=== PATIENT | male | born 1955 | race Caucasian/White ===

== ENCOUNTER 2019-01-22 13:59 | Inpatient (IN) | payer MEDICAID ==
[2019-01-22] MEDS ORDERED: Sodium Chloride 0.9% 10 ML Syringe FLUSH PRN (14:38)
--- NOTE | 2019-01-22 15:08 | EDM.PDOC ---
ED HPI GENERAL MEDICAL PROBLEM - General Chief Complaint: Respiratory Problem Stated Complaint: SOB Time Seen by Provider: 01/22/19 14:36 Source of Information: Reports: Patient, Family, Old Records, RN Notes Reviewed History Limitations: Reports: No Limitations - History of Present Illness INITIAL COMMENTS - FREE TEXT/NARRATIVE: Patient is a 63-year-old male who presents to the ED for the evaluation of shortness of breath. Patient has a history of COPD, the emphysematous type, and CHF. The patient notes that he is usually always short of breath, but over the last couple days has been worsening, it is worsen even for the last few hours. He notes he was hospitalized here at the end of October for the same sort of feelings. His sausage stuffer is Dr. Rogers, and his statistical machine servicer is Dr. Littlejohn. He notes that he has a checkup with his sausage stuffer this next week in [place]. He states that he has a dry cough most days, however he gets a coughing fit where he tires amount, and he is not able to go to work. The patient states his sputum is mostly white, does get some dark colored stuff every once in a while. The female present in the room states that he hits dyspneic with even mild exertion. He further notes that his last ejection fraction was around 25%. Patient notes that he has quit smoking, however the last month he has smoked 4 cigarettes. He denies any fevers or chills, chest pain, nausea/vomiting/diarrhea. He states that he did have a cold a few weeks ago but was feeling better. His O2 saturations at time of triage were 82% on room air, he was placed on 3 L nasal cannula and this raised him to 98%. He states that he felt better after the oxygen was initiated. - Related Data Allergies Allergy/AdvReac Type Severity Reaction Status Date / Time No Known Allergies Allergy Verified 01/22/19 14:26 Home Meds: Home Meds Albuterol [Ventolin HFA] 2 puff INH Q4H PRN 10/22/18 [History] Carvedilol 25 mg PO BID 10/22/18 [History] Lisinopril 20 mg PO DAILY 10/22/18 [History] Umeclidinium Brm/Vilanterol Tr [Anoro Ellipta 62.5-25 MCG] 1 each IH DAILY 10/22 [History] Aspirin 81 mg PO DAILY 11/05/18 [History] Azithromycin [Zithromax] 500 mg PO DAILY 3 Days #3 tablet 11/06/18 [Rx] Budesonide/Formoterol Fumarate [Symbicort 80-4.5 Mcg Inhaler] 1 puff IH BID #4 inhaler 11/06/18 [Rx] Furosemide [Lasix] 20 mg PO DAILY #7 11/06/18 [Rx] Potassium Chloride 20 meq PO DAILY #7 tablet.er 11/06/18 [Rx] predniSONE 30 mg PO DAILY 2 Days #6 tablet 11/06/18 [Rx] Past Medical History Cardiovascular History: Reports: Heart Failure, Hypertension Respiratory History: Reports: COPD, Other (See Below) Other Respiratory History: emphysema Social & Family History - Family History Family Medical History: Noncontributory - Caffeine Use Caffeine Use: Reports: Soda Other Caffeine Use: 6-8 cans daily ED ROS GENERAL - Review of Systems Review Of Systems: See Below Constitutional: Denies: Fever, Chills HEENT: Reports: No Symptoms Respiratory: Reports: Shortness of Breath, Cough, Sputum. Denies: Wheezing, Hemoptysis Cardiovascular: Reports: Dyspnea on Exertion, Edema (slight ankle edema). Denies: Chest Pain, Blood Pressure Problem, Lightheadedness, Palpitations Endocrine: Reports: No Symptoms GI/Abdominal: Denies: Abdominal Pain, Constipation, Diarrhea, Nausea, Vomiting : Reports: No Symptoms Musculoskeletal: Reports: No Symptoms Skin: Reports: No Symptoms Neurological: Reports: No Symptoms Psychiatric: Reports: No Symptoms Hematologic/Lymphatic: Reports: No Symptoms Immunologic: Reports: No Symptoms ED EXAM, GENERAL - Physical Exam Exam: See Below Exam Limited By: No Limitations General Appearance: Alert, WD/WN, No Apparent Distress Eye Exam: Bilateral Eye: Normal Inspection Throat/Mouth: Normal Inspection, Normal Lips, Normal Teeth, Normal Gums, Normal Oropharynx, Normal Voice, No Airway Compromise Head: Atraumatic, Normocephalic Neck: Normal Inspection Respiratory/Chest: No Respiratory Distress, Lungs Clear, Chest Non-Tender, Decreased Breath Sounds (diffuse bilaterally). No: Rales, Rhonchi, Wheezing Cardiovascular: Normal Peripheral Pulses, Regular Rate, Rhythm, No Murmur, Other (slight 1+ edema to bilateral ankles) Peripheral Pulses: 3+: Radial (L), Radial (R), Dorsalis Pedis (L), Dorsalis Pedis (R) GI/Abdominal: Normal Bowel Sounds, Soft, Non-Tender, No Distention, No Mass Extremities: Normal Inspection, Normal Capillary Refill Neurological: Alert, Oriented, Normal Cognition, No Motor/Sensory Deficits Psychiatric: Normal Affect, Normal Mood Skin Exam: Warm, Dry, Intact, Normal Color, No Rash EKG INTERPRETATION EKG Date: 01/22/19 Time: 15:01 Rhythm: Other (sinus tach) Rate (Beats/Min): 112 Stover: Normal P-Wave: Present QRS: Normal ST-T: Normal QT: Normal Comparison: No Change EKG Interpretation Comments: Reviewed by myself and Dr. Goff. Course - Vital Signs Last Recorded V/S: Last Vital Signs Temp 97.6 F 01/22/19 14:23 Pulse 93 01/22/19 14:23 Resp 24 H 01/22/19 14:23 BP 160/103 H 01/22/19 14:23 Pulse Ox 98 01/22/19 14:27 - Orders/Labs/Meds Orders: Active Orders 24 hr Category Date Time Status Admission Status [Patient Status] [ADT] Routine ADT 01/22/19 16:09 Active EKG Documentation Completion [RC] STAT Care 01/22/19 14:36 Active Oxygen Therapy, ED [RC] ASDIRECTED Care 01/22/19 14:37 Active Peripheral IV Care [RC] . DIRECTED Care 01/22/19 14:39 Active Sodium Chloride 0.9% [Saline Flush] Med 01/22/19 14:38 Active 10 ml FLUSH ASDIRECTED PRN Peripheral IV Insertion Adult [OM.PC] Routine Oth 01/22/19 14:38 Ordered Medication Orders Sodium Chloride (Saline Flush) 10 ml FLUSH ASDIRECTED PRN PRN Reason: Keep Vein Open Labs: Laboratory Tests 01/22/19 01/22/19 01/22/19 Range/Units 14:37 14:51 14:51 WBC 7.16 (4.23-9.07) K/mm3 RBC 5.27 (4.63-6.08) M/mm3 Hgb 15.4 (13.7-17.5) gm/dl Hct 46.9 (40.1-51.0) % MCV 89.0 (79.0-92.2) fl MCH 29.2 (25.7-32.2) pg MCHC 32.8 (32.2-35.5) g/dl RDW Std Deviation 48.3 H (35.1-43.9) fL Plt Count 217 (163-337) K/mm3 MPV 9.7 (9.4-12.3) fl Neutrophils % (Manual) 76 H (40-60) % Band Neutrophils % 0 (0-10) % Lymphocytes % (Manual) 20 (20-40) % Atypical Lymphs % 0 % Monocytes % (Manual) 4 (2-10) % Eosinophils % (Manual) 0 L (0.8-7.0) % Basophils % (Manual) 0 L (0.2-1.2) Platelet Estimate Adequate Plt Morphology Comment Normal RBC Morph Comment Normal PT 12.5 H (9.7-12.0) SECONDS INR 1.16 APTT 30 (22-31) SECONDS Puncture Site Lt radial ABG pH 7.48 H (7.35-7.45) ABG pCO2 42.0 (35.0-45.0) mmHg ABG pO2 53.0 L (80.0-100.0) mmHg ABG HCO3 30.7 H (22.0-26.0) meq/L ABG O2 Saturation 86.5 L (96.0-97.0) % ABG Base Excess 6.8 H (-2-2.0) Dante Test Positive O2 Delivery Device Room air FiO2 0.00 L (21.00-100.00) % Sodium (136-145) mEq/L Potassium (3.5-5.1) mEq/L Chloride (98-107) mEq/L Carbon Dioxide (21-32) mEq/L Anion Gap (5-15) BUN (7-18) mg/dL Creatinine (0.7-1.3) mg/dL Est Cr Clr Drug Dosing mL/min Estimated GFR (MDRD) (>60) mL/min BUN/Creatinine Ratio (14-18) Glucose (80-115) mg/dL Calcium (8.5-10.1) mg/dL Total Bilirubin (0.2-1.0) mg/dL AST (15-37) U/L ALT (16-63) U/L Alkaline Phosphatase (46-116) U/L Troponin I (0.00-0.056) ng/mL NT-Pro-B Natriuret Pep (0-125) pg/mL Total Protein (6.4-8.2) g/dl Albumin (3.4-5.0) g/dl Globulin gm/dL Albumin/Globulin Ratio (1-2) 01/22/19 01/22/19 Range/Units 14:51 14:51 WBC (4.23-9.07) K/mm3 RBC (4.63-6.08) M/mm3 Hgb (13.7-17.5) gm/dl Hct (40.1-51.0) % MCV (79.0-92.2) fl MCH (25.7-32.2) pg MCHC (32.2-35.5) g/dl RDW Std Deviation (35.1-43.9) fL Plt Count (163-337) K/mm3 MPV (9.4-12.3) fl Neutrophils % (Manual) (40-60) % Band Neutrophils % (0-10) % Lymphocytes % (Manual) (20-40) % Atypical Lymphs % % Monocytes % (Manual) (2-10) % Eosinophils % (Manual) (0.8-7.0) % Basophils % (Manual) (0.2-1.2) Platelet Estimate Plt Morphology Comment RBC Morph Comment PT (9.7-12.0) SECONDS INR APTT (22-31) SECONDS Puncture Site ABG pH (7.35-7.45) ABG pCO2 (35.0-45.0) mmHg ABG pO2 (80.0-100.0) mmHg ABG HCO3 (22.0-26.0) meq/L ABG O2 Saturation (96.0-97.0) % ABG Base Excess (-2-2.0) Dante Test O2 Delivery Device FiO2 (21.00-100.00) % Sodium 142 (136-145) mEq/L Potassium 3.4 L D (3.5-5.1) mEq/L Chloride 104 (98-107) mEq/L Carbon Dioxide 35 H (21-32) mEq/L Anion Gap 6.4 (5-15) BUN 14 (7-18) mg/dL Creatinine 1.0 (0.7-1.3) mg/dL Est Cr Clr Drug Dosing 64.16 mL/min Estimated GFR (MDRD) > 60 (>60) mL/min BUN/Creatinine Ratio 14.0 (14-18) Glucose 93 (80-115) mg/dL Calcium 8.0 L (8.5-10.1) mg/dL Total Bilirubin 0.5 (0.2-1.0) mg/dL AST 11 L (15-37) U/L ALT 19 (16-63) U/L Alkaline Phosphatase 65 (46-116) U/L Troponin I 0.032 (0.00-0.056) ng/mL NT-Pro-B Natriuret Pep 4487 H (0-125) pg/mL Total Protein 6.1 L (6.4-8.2) g/dl Albumin 3.0 L (3.4-5.0) g/dl Globulin 3.1 gm/dL Albumin/Globulin Ratio 1.0 (1-2) Meds: Medications Generic Name Dose Route Start Last Admin Trade Name Freq PRN Reason Stop Dose Admin Sodium Chloride 10 ml 01/22/19 14:38 Saline Flush FLUSH ASDIRECTED PRN Keep Vein Open Discontinued Medications Generic Name Dose Route Start Last Admin Trade Name Freq PRN Reason Stop Dose Admin Albuterol/Ipratropium 3 ml 01/22/19 17:12 Duoneb 3.0-0.5 Mg/3 Ml NEB 01/22/19 17:13 ONETIME ONE Prednisone 40 mg 01/22/19 17:12 Prednisone PO 01/22/19 17:13 ONETIME ONE - Re-Assessments/Exams Free Text/Narrative Re-Assessment/Exam: 01/22/19 15:09 Patient presents to the ED for the evaluation of shortness of breath. I did order an IV be placed, EKG, chest x-ray, CBC, CMP, ABG on room air, troponin, PT /INR, PTT for initial evaluation. Patient will be placed back on oxygen after the ABG has been obtained. 01/22/19 15:47 Patient's laboratory evaluation, his CBC is unremarkable for any acute abnormalities, potassium slightly low at 3.4, BNP is 4487, but review of his old labs showed is not markedly increased from his baseline. Troponin is 0.032 , but within normal limits. Blood gas demonstrated a PO2 of 53 mmHg, this was done on room air. Results of the ABG would demonstrate that he would likely benefit from some outpatient oxygen at home. EKG was obtained and does not appear to have any major changes as compared to the last EKG done. He is in sinus tach with a rate of 112, atrial enlargement, left bundle branch block. Chest x-ray is done as well and demonstrates emphysematous change, with chronic appearing pulmonary vascular congestion, with no other acute abnormalities. 01/22/19 17:13 Dr. Fry was in to see the patient and was concerned that the patient had not been given a breathing treatment or steroids, and requested these be obtained. I did order a Duoneb and 40mg PO prednisone. Departure - Departure Time of Disposition: 16:12 Disposition: Refer to Observation Condition: Fair Clinical Impression: COPD exacerbation, Hypoxemia - Discharge Information *PRESCRIPTION DRUG MONITORING PROGRAM REVIEWED*: No *COPY OF PRESCRIPTION DRUG MONITORING REPORT IN PATIENT LIBBY: No - My Orders Last 24 Hours: My Active Orders 01/22/19 14:36 EKG Documentation Completion [RC] STAT 01/22/19 14:37 Oxygen Therapy, ED [RC] ASDIRECTED 01/22/19 14:38 Sodium Chloride 0.9% [Saline Flush] 10 ml FLUSH ASDIRECTED PRN Peripheral IV Insertion Adult [OM.PC] Routine 01/22/19 14:39 Peripheral IV Care [RC] . DIRECTED 01/22/19 16:09 Admission Status [Patient Status] [ADT] Routine - Assessment/Plan Last 24 Hours: My Active Orders 01/22/19 14:36 EKG Documentation Completion [RC] STAT 01/22/19 14:37 Oxygen Therapy, ED [RC] ASDIRECTED 01/22/19 14:38 Sodium Chloride 0.9% [Saline Flush] 10 ml FLUSH ASDIRECTED PRN Peripheral IV Insertion Adult [OM.PC] Routine 01/22/19 14:39 Peripheral IV Care [RC] . DIRECTED 01/22/19 16:09 Admission Status [Patient Status] [ADT] Routine
--- NOTE | 2019-01-22 15:33 | CR ---
Chest: 2 views of the chest were obtained. Comparison: Prior chest x-ray of 11/05/18. Lungs are hyperinflated compatible with emphysematous change. Heart size is felt to be slightly enlarged. Pulmonary vessels are increased most of which appear to be chronic and difficult to exclude chronic pulmonary vascular congestion. No acute parenchymal change is suspected. Bony structures are grossly intact. Impression: 1. Emphysematous change. 2. Chronic-appearing pulmonary vascular congestion. 3. Nothing acute is definitely appreciated. Diagnostic code #3
[2019-01-22] MEDS ORDERED: predniSONE 20 MG Tab PO ONE (17:12)
[2019-01-22] MEDS ORDERED: Albuterol/Ipratropium 3.0-0.5 MG/3 ML Neb Soln NEB ONE (17:12)
[2019-01-22] MEDS ORDERED: Acetaminophen 325 MG Tab PO PRN (17:59)
[2019-01-22] MEDS ORDERED: Ondansetron 4 MG/2 ML SDV IV PRN (17:59)
[2019-01-22] MEDS ORDERED: Albuterol 0.083% 2.5 MG/3 ML Neb Soln NEB PRN (18:01)
[2019-01-22] MEDS: Albuterol/Ipratropium 3.0-0.5 MG/3 ML Neb Soln NEB SCH (20:29)
--- NOTE | 2019-01-22 21:12 | PCM.HP.2 ---
H&P History of Present Illness - General Date of Service: 01/22/19 Admit Problem/Dx: Admission Diagnosis/Problem Admission Diagnosis/Problem COPD, Moderate chronic obstructive pulmonary disease - History of Present Illness Initial Comments - Free Text/Narative: 63-year-old male comes to emergency room today with worsening shortness of breath. He was diagnosed with COPD 3 years years ago. Over the last 6 weeks he has had worsening shortness of breath, but today he can only walk approximately 10 feet. When he arrived in the ER he was placed on O2 secondary to saturations in the low 80s. He states that he has had increased productive sputum, white, yellowish, brown. He essentially stopped smoking approximately one month ago, except for approximately 4 cigarettes this month. He does see a appliance counselor, Dr. Rogers, and was scheduled for follow-up next week. He has a history of heart failure with reduced ejection fraction of reportedly 25%. He states that his legs have some mild edema, but they are better than normal. He was placed on 3 L nasal cannula in the emergency room and his oxygen saturations were 100% when I entered the room. This was decreased to 1 L and he was maintaining saturations in the mid 90s. He denies any fever, chills, or night sweats. - Related Data Allergies/Adverse Reactions: Allergies Allergy/AdvReac Type Severity Reaction Status Date / Time No Known Allergies Allergy Verified 01/22/19 14:26 Home Medications: Home Meds Albuterol [Ventolin HFA] 2 puff INH Q4H PRN 10/22/18 [History] Carvedilol 25 mg PO BIDMEALS 10/22/18 [History] Lisinopril 20 mg PO DAILY 10/22/18 [History] Umeclidinium Brm/Vilanterol Tr [Anoro Ellipta 62.5-25 MCG] 1 each IH DAILY 10/22 [History] Aspirin 81 mg PO DAILY 11/05/18 [History] Budesonide/Formoterol Fumarate [Symbicort 80-4.5 Mcg Inhaler] 1 puff IH BID #4 inhaler 11/06/18 [Rx] Furosemide [Lasix] 20 mg PO DAILY #7 11/06/18 [Rx] Past Medical History HEENT History: Reports: None Cardiovascular History: Reports: Heart Failure, Hypertension, SOB on Exertion Respiratory History: Reports: COPD, SOB, Other (See Below) Other Respiratory History: emphysema Gastrointestinal History: Reports: None Genitourinary History: Reports: None Musculoskeletal History: Reports: None Neurological History: Reports: None Psychiatric History: Reports: None Endocrine/Metabolic History: Reports: None Hematologic History: Reports: None Immunologic History: Reports: None Oncologic (Cancer) History: Reports: None Dermatologic History: Reports: None - Infectious Disease History Infectious Disease History: Reports: Chicken Pox, Measles - Past Surgical History Head Surgeries/Procedures: Reports: None HEENT Surgical History: Reports: None Male Surgical History: Reports: Circumcision Neurological Surgical History: Reports: None Musculoskeletal Surgical History: Reports: None Oncologic Surgical History: Reports: None Dermatological Surgical History: Reports: None Social & Family History - Family History Family Medical History: Noncontributory - Tobacco Use Smoking Status *Q: Former Smoker Years of Tobacco use: 50 Packs/Tins Daily: 2 Used Tobacco, but Quit: Yes Month/Year Tobacco Last Used: 11/2018 Second Hand Smoke Exposure: Yes - Caffeine Use Caffeine Use: Reports: Soda Other Caffeine Use: 6-8 cans daily - Recreational Drug Use Recreational Drug Use: No H&P Review of Systems - Review of Systems: Review Of Systems: ROS reveals no pertinent complaints other than HPI. Exam - Exam Exam: See Below - Vital Signs Vital Signs: Last Vital Signs Temp 97.9 F 01/22/19 17:45 Pulse 93 01/22/19 17:45 Resp 20 01/22/19 17:45 BP 151/91 H 01/22/19 17:45 Pulse Ox 95 01/22/19 20:32 Weight: 133 lb 3.2 oz - Exam Quality Assessment: Supplemental Oxygen General: Alert, Oriented, 4 HEENT: Conjunctiva Clear, Hearing Intact, Mucosa Moist & Hustler, Normal Nasal Septum Neck: Supple, Trachea Midline, 2 Lungs: Normal Respiratory Effort, Decreased Breath Sounds, Rales Cardiovascular: Regular Rate, Regular Rhythm GI/Abdominal Exam: Normal Bowel Sounds, Soft, Non-Tender, No Organomegaly, No Distention, No Abnormal Bruit, No Mass, Pelvis Stable Extremities: Normal Inspection, Normal Range of Motion, Non-Tender, Normal Capillary Refill, Pedal Edema (1+ pitting edema to mid calf) Skin: Warm, Dry, Intact Neurological: Cranial Nerves Intact Neuro Extensive - Mental Status: Alert, Oriented x3, Normal Mood/Affect, Normal Cognition Neuro Extensive - Motor, Sensory, Reflexes: CN II-XII Intact Psychiatric: Alert, Normal Affect, Normal Mood - Patient Data Lab Results Last 24 hrs: Laboratory Results - last 24 hr 01/22/19 01/22/19 01/22/19 Range/Units 14:37 14:51 14:51 WBC 7.16 (4.23-9.07) K/mm3 RBC 5.27 (4.63-6.08) M/mm3 Hgb 15.4 (13.7-17.5) gm/dl Hct 46.9 (40.1-51.0) % MCV 89.0 (79.0-92.2) fl MCH 29.2 (25.7-32.2) pg MCHC 32.8 (32.2-35.5) g/dl RDW Std Deviation 48.3 H (35.1-43.9) fL Plt Count 217 (163-337) K/mm3 MPV 9.7 (9.4-12.3) fl Neutrophils % (Manual) 76 H (40-60) % Band Neutrophils % 0 (0-10) % Lymphocytes % (Manual) 20 (20-40) % Atypical Lymphs % 0 % Monocytes % (Manual) 4 (2-10) % Eosinophils % (Manual) 0 L (0.8-7.0) % Basophils % (Manual) 0 L (0.2-1.2) Platelet Estimate Adequate Plt Morphology Comment Normal RBC Morph Comment Normal PT 12.5 H (9.7-12.0) SECONDS INR 1.16 APTT 30 (22-31) SECONDS Puncture Site Lt radial ABG pH 7.48 H (7.35-7.45) ABG pCO2 42.0 (35.0-45.0) mmHg ABG pO2 53.0 L (80.0-100.0) mmHg ABG HCO3 30.7 H (22.0-26.0) meq/L ABG O2 Saturation 86.5 L (96.0-97.0) % ABG Base Excess 6.8 H (-2-2.0) Dante Test Positive O2 Delivery Device Room air FiO2 0.00 L (21.00-100.00) % Sodium (136-145) mEq/L Potassium (3.5-5.1) mEq/L Chloride (98-107) mEq/L Carbon Dioxide (21-32) mEq/L Anion Gap (5-15) BUN (7-18) mg/dL Creatinine (0.7-1.3) mg/dL Est Cr Clr Drug Dosing mL/min Estimated GFR (MDRD) (>60) mL/min BUN/Creatinine Ratio (14-18) Glucose (80-115) mg/dL Calcium (8.5-10.1) mg/dL Total Bilirubin (0.2-1.0) mg/dL AST (15-37) U/L ALT (16-63) U/L Alkaline Phosphatase (46-116) U/L Troponin I (0.00-0.056) ng/mL NT-Pro-B Natriuret Pep (0-125) pg/mL Total Protein (6.4-8.2) g/dl Albumin (3.4-5.0) g/dl Globulin gm/dL Albumin/Globulin Ratio (1-2) 01/22/19 01/22/19 Range/Units 14:51 14:51 WBC (4.23-9.07) K/mm3 RBC (4.63-6.08) M/mm3 Hgb (13.7-17.5) gm/dl Hct (40.1-51.0) % MCV (79.0-92.2) fl MCH (25.7-32.2) pg MCHC (32.2-35.5) g/dl RDW Std Deviation (35.1-43.9) fL Plt Count (163-337) K/mm3 MPV (9.4-12.3) fl Neutrophils % (Manual) (40-60) % Band Neutrophils % (0-10) % Lymphocytes % (Manual) (20-40) % Atypical Lymphs % % Monocytes % (Manual) (2-10) % Eosinophils % (Manual) (0.8-7.0) % Basophils % (Manual) (0.2-1.2) Platelet Estimate Plt Morphology Comment RBC Morph Comment PT (9.7-12.0) SECONDS INR APTT (22-31) SECONDS Puncture Site ABG pH (7.35-7.45) ABG pCO2 (35.0-45.0) mmHg ABG pO2 (80.0-100.0) mmHg ABG HCO3 (22.0-26.0) meq/L ABG O2 Saturation (96.0-97.0) % ABG Base Excess (-2-2.0) Dante Test O2 Delivery Device FiO2 (21.00-100.00) % Sodium 142 (136-145) mEq/L Potassium 3.4 L D (3.5-5.1) mEq/L Chloride 104 (98-107) mEq/L Carbon Dioxide 35 H (21-32) mEq/L Anion Gap 6.4 (5-15) BUN 14 (7-18) mg/dL Creatinine 1.0 (0.7-1.3) mg/dL Est Cr Clr Drug Dosing 64.16 mL/min Estimated GFR (MDRD) > 60 (>60) mL/min BUN/Creatinine Ratio 14.0 (14-18) Glucose 93 (80-115) mg/dL Calcium 8.0 L (8.5-10.1) mg/dL Total Bilirubin 0.5 (0.2-1.0) mg/dL AST 11 L (15-37) U/L ALT 19 (16-63) U/L Alkaline Phosphatase 65 (46-116) U/L Troponin I 0.032 (0.00-0.056) ng/mL NT-Pro-B Natriuret Pep 4487 H (0-125) pg/mL Total Protein 6.1 L (6.4-8.2) g/dl Albumin 3.0 L (3.4-5.0) g/dl Globulin 3.1 gm/dL Albumin/Globulin Ratio 1.0 (1-2) Result Diagrams: 01/22/19 14:51 01/22/19 14:51 EKG INTERPRETATION EKG Interpretation Comments: ECG: Ventricular rate 112 bpm. Sinus tachycardia. Left bundle branch block. Problem List Initiated/Reviewed/Updated: Yes Orders Last 24hrs: Active Orders 24 hr Category Date Time Status Admission Status [Patient Status] [ADT] Routine ADT 01/22/19 16:09 Active Oxygen Therapy [RC] PRN Care 01/22/19 18:00 Active RT Aerosol Therapy [RC] ASDIRECTED Care 01/22/19 17:12 Active Up ad Nuha [RC] ASDIRECTED Care 01/22/19 17:59 Active VTE/DVT Education [RC] PER UNIT ROUTINE Care 01/22/19 18:00 Active Vital Signs [RC] Q4HR Care 01/22/19 18:00 Active Respiratory Care Assess and Treatment [CONS] Routine Cons 01/22/19 18:01 Active Heart Healthy Diet [DIET] Diet 01/22/19 Dinner Active C-REACTIVE PROTEIN [CHEM] AM Lab 01/23/19 05:11 Ordered C-REACTIVE PROTEIN [CHEM] AM Lab 01/24/19 05:11 Ordered C-REACTIVE PROTEIN [CHEM] AM Lab 01/25/19 05:11 Ordered C-REACTIVE PROTEIN [CHEM] AM Lab 01/26/19 05:11 Ordered CBC WITH AUTO DIFF [HEME] AM Lab 01/23/19 05:11 Ordered CBC WITH AUTO DIFF [HEME] AM Lab 01/24/19 05:11 Ordered CBC WITH AUTO DIFF [HEME] AM Lab 01/25/19 05:11 Ordered CBC WITH AUTO DIFF [HEME] AM Lab 01/26/19 05:11 Ordered COMPREHENSIVE METABOLIC PN,CMP [CHEM] AM Lab 01/23/19 05:11 Ordered COMPREHENSIVE METABOLIC PN,CMP [CHEM] AM Lab 01/24/19 05:11 Ordered COMPREHENSIVE METABOLIC PN,CMP [CHEM] AM Lab 01/25/19 05:11 Ordered COMPREHENSIVE METABOLIC PN,CMP [CHEM] AM Lab 01/26/19 05:11 Ordered MAGNESIUM [CHEM] AM Lab 01/23/19 05:11 Ordered MAGNESIUM [CHEM] AM Lab 01/24/19 05:11 Ordered MAGNESIUM [CHEM] AM Lab 01/25/19 05:11 Ordered MAGNESIUM [CHEM] AM Lab 01/26/19 05:11 Ordered Acetaminophen [Tylenol] Med 01/22/19 17:59 Active 650 mg PO Q4H PRN Albuterol [Proventil Neb Soln] Med 01/22/19 18:01 Active 2.5 mg NEB Q2H PRN Albuterol/Ipratropium [DuoNeb 3.0-0.5 MG/3 ML] Med 01/22/19 21:00 Active 3 ml NEB Q6HRRT Aspirin Med 01/23/19 09:00 Pending 81 mg PO DAILY Carvedilol Med 01/23/19 07:00 Pending 25 mg PO BIDMEALS Enoxaparin [Lovenox] Med 01/23/19 09:00 Active 40 mg SUBCUT DAILY Furosemide [Lasix] Med 01/23/19 09:00 Ordered 20 mg PO DAILY Lisinopril [Prinivil] Med 01/23/19 09:00 Ordered 20 mg PO DAILY Ondansetron [Zofran] Med 01/22/19 17:59 Active 4 mg IV Q4H PRN Sodium Chloride 0.9% [Saline Flush] Med 01/22/19 14:38 Active 10 ml FLUSH ASDIRECTED PRN Peripheral IV Insertion Adult [OM.PC] Routine Oth 01/22/19 14:38 Ordered Resuscitation Status Routine Resus Stat 01/22/19 17:59 Ordered Medication Orders Acetaminophen (Tylenol) 650 mg PO Q4H PRN PRN Reason: Pain (Mild 1-3)/fever Albuterol (Proventil Neb Soln) 2.5 mg NEB Q2H PRN PRN Reason: Shortness Of Breath/wheezing Albuterol/Ipratropium (Duoneb 3.0-0.5 Mg/3 Ml) 3 ml NEB Q6HRRT KRYSTA Last Admin: 01/22/19 20:29 Dose: 3 ml Aspirin (Aspirin) 81 mg PO DAILY [facility] Enoxaparin Sodium (Lovenox) 40 mg SUBCUT DAILY [facility] Furosemide (Lasix) 20 mg PO DAILY [facility] Lisinopril (Prinivil) 20 mg PO DAILY [facility] Non-Formulary Medication (Carvedilol) 25 mg PO BIDMEALS [facility] Ondansetron HCl (Zofran) 4 mg IV Q4H PRN PRN Reason: Nausea/Vomiting Sodium Chloride (Saline Flush) 10 ml FLUSH ASDIRECTED PRN PRN Reason: Keep Vein Open Assessment/Plan Comment:: Assessment * COPD exacerbation with hypoxemia * Chest x-ray: 1. Emphysematous change. 2. Chronic appearing pulmonary vascular congestion. 3. Nothing acute is definitely appreciated. * ABG: PH 7.48, PCO2 42.0, PO2 53.0, HCO3 30.7 * Heart failure with reduced ejection fractionstable * BNP 4487 ( November 08, 2018: 4376) * reported ejection fraction of 25% * mild metabolic alkalosis likely secondary to diuretics * Mild hypokalemia * Recent tobaccoismquit one month ago: Refuses nicotine patch Plan * Admit to floor on telemetryon observation * FiO2 to keep oxygen saturations between 90 and 94%. * Albuterol and DuoNeb * Prednisone 40 mg daily * Azithromycin * Continue home meds * Replenish potassium * Recheck CBC, CMP, and magnesium in the morning * VTE prophylaxis with Lovenox * CODE STATUS: Full code * Length of stay 1-2 days - Mortality Measure Prognosis:: Poor
[2019-01-22] MEDS ORDERED: Potassium Chloride 20 MEQ Tab.ER PO ONE (21:45)
[2019-01-22] MEDS ORDERED: Azithromycin 500 MG in Sodium Chloride 0.9% 250 ML IV ONE (22:00)
[2019-01-23] MEDS: Albuterol/Ipratropium 3.0-0.5 MG/3 ML Neb Soln NEB SCH ×3 (03:02→14:26)
[2019-01-23] MEDS ORDERED: CARVEDILOL 25 MG PO SCH ×2 (07:00)
[2019-01-23] MEDS: CARVEDILOL 25 MG PO SCH ×2 (07:12→17:24)
[2019-01-23] MEDS ORDERED: Lisinopril 20 MG Tab PO SCH (09:00)
[2019-01-23] MEDS ORDERED: Enoxaparin 40 MG/0.4 ML Syringe SUBCUT SCH (09:00)
[2019-01-23] MEDS ORDERED: Furosemide 20 MG Tab PO SCH (09:00)
[2019-01-23] MEDS: ASPIRIN 81 MG PO SCH (10:06)
[2019-01-23] MEDS: Furosemide 20 MG Tab *PT OWN MED PO SCH (10:06)
[2019-01-23] MEDS: LISINOPRIL 20 MG PO SCH (10:07)
--- NOTE | 2019-01-23 11:47 | PCM.PN ---
- General Info Date of Service: 01/23/19 Admission Dx/Problem (Free Text): Admission Diagnosis/Problem Admission Diagnosis/Problem COPD, Moderate chronic obstructive pulmonary disease Functional Status: Reports: Pain Controlled, Tolerating Diet, Ambulating, Urinating, New Symptoms - Review of Systems General: Reports: No Symptoms. Denies: Fever, Weakness, Fatigue, Malaise, Chills HEENT: Reports: No Symptoms. Denies: Dysphasia, Headaches, Sore Throat Pulmonary: Reports: Shortness of Breath (With ambulation - worse than baseline ) , Cough (chronic ), Sputum (occasional ), Wheezing (chronic ) Cardiovascular: Reports: Dyspnea on Exertion (Chronic - worse than normal ). Denies: Chest Pain, Palpitations, Orthopnea, Edema Gastrointestinal: Reports: No Symptoms. Denies: Abdominal Pain, Constipation, Diarrhea, Nausea, Vomiting Genitourinary: Reports: No Symptoms. Denies: Pain Musculoskeletal: Reports: No Symptoms Skin: Reports: No Symptoms Neurological: Reports: No Symptoms. Denies: Confusion, Pre-Existing Deficit, Difficulty Walking, Weakness Psychiatric: Reports: No Symptoms - Patient Data Vitals - Most Recent: Last Vital Signs Temp 98.2 F 01/23/19 02:57 Pulse 81 01/23/19 02:57 Resp 12 01/23/19 02:57 BP 142/74 H 01/23/19 10:07 Pulse Ox 89 L 01/23/19 08:32 Weight - Most Recent: 133 lb 4.8 oz I&O - Last 24 Hours: Intake & Output 01/22/19 01/23/19 01/23/19 22:59 06:59 14:59 Intake Total 320 850 440 Output Total 1050 Balance 320 -200 440 Lab Results Last 24 Hours: Laboratory Results - last 24 hr 01/22/19 01/22/19 01/22/19 Range/Units 14:37 14:51 14:51 WBC 7.16 (4.23-9.07) K/mm3 RBC 5.27 (4.63-6.08) M/mm3 Hgb 15.4 (13.7-17.5) gm/dl Hct 46.9 (40.1-51.0) % MCV 89.0 (79.0-92.2) fl MCH 29.2 (25.7-32.2) pg MCHC 32.8 (32.2-35.5) g/dl RDW Std Deviation 48.3 H (35.1-43.9) fL Plt Count 217 (163-337) K/mm3 MPV 9.7 (9.4-12.3) fl Neut % (Auto) (34.0-67.9) % Lymph % (Auto) (21.8-53.1) % Stevens % (Auto) (5.3-12.2) % Eos % (Auto) (0.8-7.0) Baso % (Auto) (0.1-1.2) % Neut # (Auto) (1.78-5.38) K/mm3 Lymph # (Auto) (1.32-3.57) K/mm3 Stevens # (Auto) (0.30-0.82) K/mm3 Eos # (Auto) (0.04-0.54) K/mm3 Baso # (Auto) (0.01-0.08) K/mm3 Neutrophils % (Manual) 76 H (40-60) % Band Neutrophils % 0 (0-10) % Lymphocytes % (Manual) 20 (20-40) % Atypical Lymphs % 0 % Monocytes % (Manual) 4 (2-10) % Eosinophils % (Manual) 0 L (0.8-7.0) % Basophils % (Manual) 0 L (0.2-1.2) Manual Slide Review Platelet Estimate Adequate Plt Morphology Comment Normal RBC Morph Comment Normal PT 12.5 H (9.7-12.0) SECONDS INR 1.16 APTT 30 (22-31) SECONDS Puncture Site Lt radial ABG pH 7.48 H (7.35-7.45) ABG pCO2 42.0 (35.0-45.0) mmHg ABG pO2 53.0 L (80.0-100.0) mmHg ABG HCO3 30.7 H (22.0-26.0) meq/L ABG O2 Saturation 86.5 L (96.0-97.0) % ABG Base Excess 6.8 H (-2-2.0) Dante Test Positive O2 Delivery Device Room air FiO2 0.00 L (21.00-100.00) % Sodium (136-145) mEq/L Potassium (3.5-5.1) mEq/L Chloride (98-107) mEq/L Carbon Dioxide (21-32) mEq/L Anion Gap (5-15) BUN (7-18) mg/dL Creatinine (0.7-1.3) mg/dL Est Cr Clr Drug Dosing mL/min Estimated GFR (MDRD) (>60) mL/min BUN/Creatinine Ratio (14-18) Glucose (80-115) mg/dL Calcium (8.5-10.1) mg/dL Magnesium (1.8-2.4) mg/dl Total Bilirubin (0.2-1.0) mg/dL AST (15-37) U/L ALT (16-63) U/L Alkaline Phosphatase (46-116) U/L Troponin I (0.00-0.056) ng/mL C-Reactive Protein (<1.0) mg/dL NT-Pro-B Natriuret Pep (0-125) pg/mL Total Protein (6.4-8.2) g/dl Albumin (3.4-5.0) g/dl Globulin gm/dL Albumin/Globulin Ratio (1-2) 01/22/19 01/22/19 01/23/19 Range/Units 14:51 14:51 05:09 WBC 4.35 (4.23-9.07) K/mm3 RBC 5.24 (4.63-6.08) M/mm3 Hgb 14.9 (13.7-17.5) gm/dl Hct 46.5 (40.1-51.0) % MCV 88.7 (79.0-92.2) fl MCH 28.4 (25.7-32.2) pg MCHC 32.0 L (32.2-35.5) g/dl RDW Std Deviation 47.4 H (35.1-43.9) fL Plt Count 197 (163-337) K/mm3 MPV 9.9 (9.4-12.3) fl Neut % (Auto) 88.5 H (34.0-67.9) % Lymph % (Auto) 9.7 L (21.8-53.1) % Stevens % (Auto) 1.8 L (5.3-12.2) % Eos % (Auto) 0 L (0.8-7.0) Baso % (Auto) 0.0 L (0.1-1.2) % Neut # (Auto) 3.85 (1.78-5.38) K/mm3 Lymph # (Auto) 0.42 L (1.32-3.57) K/mm3 Stevens # (Auto) 0.08 L (0.30-0.82) K/mm3 Eos # (Auto) 0.00 L (0.04-0.54) K/mm3 Baso # (Auto) 0.00 L (0.01-0.08) K/mm3 Neutrophils % (Manual) (40-60) % Band Neutrophils % (0-10) % Lymphocytes % (Manual) (20-40) % Atypical Lymphs % % Monocytes % (Manual) (2-10) % Eosinophils % (Manual) (0.8-7.0) % Basophils % (Manual) (0.2-1.2) Manual Slide Review Abnormal smear Platelet Estimate Plt Morphology Comment RBC Morph Comment PT (9.7-12.0) SECONDS INR APTT (22-31) SECONDS Puncture Site ABG pH (7.35-7.45) ABG pCO2 (35.0-45.0) mmHg ABG pO2 (80.0-100.0) mmHg ABG HCO3 (22.0-26.0) meq/L ABG O2 Saturation (96.0-97.0) % ABG Base Excess (-2-2.0) Dante Test O2 Delivery Device FiO2 (21.00-100.00) % Sodium 142 (136-145) mEq/L Potassium 3.4 L D (3.5-5.1) mEq/L Chloride 104 (98-107) mEq/L Carbon Dioxide 35 H (21-32) mEq/L Anion Gap 6.4 (5-15) BUN 14 (7-18) mg/dL Creatinine 1.0 (0.7-1.3) mg/dL Est Cr Clr Drug Dosing 64.16 mL/min Estimated GFR (MDRD) > 60 (>60) mL/min BUN/Creatinine Ratio 14.0 (14-18) Glucose 93 (80-115) mg/dL Calcium 8.0 L (8.5-10.1) mg/dL Magnesium (1.8-2.4) mg/dl Total Bilirubin 0.5 (0.2-1.0) mg/dL AST 11 L (15-37) U/L ALT 19 (16-63) U/L Alkaline Phosphatase 65 (46-116) U/L Troponin I 0.032 (0.00-0.056) ng/mL C-Reactive Protein (<1.0) mg/dL NT-Pro-B Natriuret Pep 4487 H (0-125) pg/mL Total Protein 6.1 L (6.4-8.2) g/dl Albumin 3.0 L (3.4-5.0) g/dl Globulin 3.1 gm/dL Albumin/Globulin Ratio 1.0 (1-2) 01/23/19 Range/Units 05:09 WBC (4.23-9.07) K/mm3 RBC (4.63-6.08) M/mm3 Hgb (13.7-17.5) gm/dl Hct (40.1-51.0) % MCV (79.0-92.2) fl MCH (25.7-32.2) pg MCHC (32.2-35.5) g/dl RDW Std Deviation (35.1-43.9) fL Plt Count (163-337) K/mm3 MPV (9.4-12.3) fl Neut % (Auto) (34.0-67.9) % Lymph % (Auto) (21.8-53.1) % Stevens % (Auto) (5.3-12.2) % Eos % (Auto) (0.8-7.0) Baso % (Auto) (0.1-1.2) % Neut # (Auto) (1.78-5.38) K/mm3 Lymph # (Auto) (1.32-3.57) K/mm3 Stevens # (Auto) (0.30-0.82) K/mm3 Eos # (Auto) (0.04-0.54) K/mm3 Baso # (Auto) (0.01-0.08) K/mm3 Neutrophils % (Manual) (40-60) % Band Neutrophils % (0-10) % Lymphocytes % (Manual) (20-40) % Atypical Lymphs % % Monocytes % (Manual) (2-10) % Eosinophils % (Manual) (0.8-7.0) % Basophils % (Manual) (0.2-1.2) Manual Slide Review Platelet Estimate Plt Morphology Comment RBC Morph Comment PT (9.7-12.0) SECONDS INR APTT (22-31) SECONDS Puncture Site ABG pH (7.35-7.45) ABG pCO2 (35.0-45.0) mmHg ABG pO2 (80.0-100.0) mmHg ABG HCO3 (22.0-26.0) meq/L ABG O2 Saturation (96.0-97.0) % ABG Base Excess (-2-2.0) Dante Test O2 Delivery Device FiO2 (21.00-100.00) % Sodium 141 (136-145) mEq/L Potassium 3.5 (3.5-5.1) mEq/L Chloride 103 (98-107) mEq/L Carbon Dioxide 32 (21-32) mEq/L Anion Gap 9.5 (5-15) BUN 15 (7-18) mg/dL Creatinine 1.0 (0.7-1.3) mg/dL Est Cr Clr Drug Dosing 63.82 mL/min Estimated GFR (MDRD) > 60 (>60) mL/min BUN/Creatinine Ratio 15.0 (14-18) Glucose 188 H (80-115) mg/dL Calcium 8.5 (8.5-10.1) mg/dL Magnesium 2.0 (1.8-2.4) mg/dl Total Bilirubin 0.5 (0.2-1.0) mg/dL AST 20 (15-37) U/L ALT 23 (16-63) U/L Alkaline Phosphatase 68 (46-116) U/L Troponin I (0.00-0.056) ng/mL C-Reactive Protein 0.5 (<1.0) mg/dL NT-Pro-B Natriuret Pep (0-125) pg/mL Total Protein 6.0 L (6.4-8.2) g/dl Albumin 2.9 L (3.4-5.0) g/dl Globulin 3.1 gm/dL Albumin/Globulin Ratio 0.9 L (1-2) Med Orders - Current: Current Medications Acetaminophen (Tylenol) 650 mg PO Q4H PRN PRN Reason: Pain (Mild 1-3)/fever Albuterol (Proventil Neb Soln) 2.5 mg NEB Q2H PRN PRN Reason: Shortness Of Breath/wheezing Albuterol/Ipratropium (Duoneb 3.0-0.5 Mg/3 Ml) 3 ml NEB Q6HRRT [facility] Last Admin: 01/23/19 08:32 Dose: 3 ml Aspirin (Halfprin) 81 mg PO DAILY [facility] Last Admin: 01/23/19 10:06 Dose: 81 mg Azithromycin (Zithromax) 250 mg PO DAILY [facility] Stop: 01/26/19 09:01 Enoxaparin Sodium (Lovenox) 40 mg SUBCUT DAILY [facility] Last Admin: 01/23/19 10:08 Dose: Not Given Furosemide (Lasix) 20 mg PO DAILY [facility] Last Admin: 01/23/19 10:06 Dose: 20 mg Lisinopril (Prinivil) 20 mg PO DAILY [facility] Last Admin: 01/23/19 10:07 Dose: 20 mg Nf Medication 1 Each (Carvedilol 25 Mg)* Pt Own Med 0 mg PO BIDMEALS [facility] Last Admin: 01/23/19 07:12 Dose: 25 mg Ondansetron HCl (Zofran) 4 mg IV Q4H PRN PRN Reason: Nausea/Vomiting Prednisone (Prednisone) 40 mg PO ONETIME ONE Stop: 01/24/19 11:15 Prednisone (Prednisone) 40 mg PO WITHBREAKFAST [facility] Sodium Chloride (Saline Flush) 10 ml FLUSH ASDIRECTED PRN PRN Reason: Keep Vein Open Discontinued Medications Albuterol/Ipratropium (Duoneb 3.0-0.5 Mg/3 Ml) 3 ml NEB ONETIME ONE Stop: 01/22/19 17:13 Last Admin: 01/22/19 18:27 Dose: 3 ml Azithromycin 500 mg/ Sodium (Chloride) 250 mls @ 250 mls/hr IV ONETIME ONE Stop: 01/22/19 22:59 Last Admin: 01/22/19 22:13 Dose: 250 mls/hr Nf Med 1 Each ( Carvedilol 25 Mg) * Pt Own Med 25 mg PO BIDMEALS [facility] Potassium Chloride (Klor-Con M20) 20 meq PO ONETIME ONE Stop: 01/22/19 21:46 Last Admin: 01/22/19 22:13 Dose: 20 meq Prednisone (Prednisone) 40 mg PO ONETIME ONE Stop: 01/22/19 17:13 Last Admin: 01/22/19 17:57 Dose: 40 mg - Exam Quality Assessment: Supplemental Oxygen, DVT Prophylaxis General: Alert, Oriented, Cooperative, No Acute Distress HEENT: Pupils Equal, Pupils Reactive, EOMI, Mucous Membr. Moist/Graingers Neck: Supple, Trachea Midline, No JVD Lungs: Normal Respiratory Effort, Decreased Breath Sounds, Wheezing Cardiovascular: Regular Rate, Regular Rhythm GI/Abdominal Exam: Normal Bowel Sounds, Soft, Non-Tender, No Distention, No Abnormal Bruit, Pelvis Stable (Male) Exam: Deferred Back Exam: Normal Inspection, Full Range of Motion Extremities: Normal Inspection, Normal Range of Motion, Non-Tender, No Pedal Edema, Normal Capillary Refill Peripheral Pulses: 2+: Radial (L), Radial (R), Dorsalis Pedis (L), Dorsalis Pedis (R) Skin: Warm, Dry, Intact Neurological: No New Focal Deficit Psy/Mental Status: Alert, Normal Affect, Normal Mood - Problem List & Annotations (1) COPD exacerbation SNOMED Code(s): 863226639 Code(s): J44.1 - CHRONIC OBSTRUCTIVE PULMONARY DISEASE W (ACUTE) EXACERBATION Status: Acute Priority: High Current Visit: Yes (2) Congestive heart failure SNOMED Code(s): 85075910 Code(s): I50.9 - HEART FAILURE, UNSPECIFIED Status: Chronic Priority: Medium Current Visit: No Qualifiers: Heart failure type: unspecified Heart failure chronicity: acute on chronic Qualified Code(s): I50.9 - Heart failure, unspecified (3) Dyspnea SNOMED Code(s): 652887680 Code(s): R06.00 - DYSPNEA, UNSPECIFIED Status: Acute Priority: High Current Visit: Yes Qualifiers: Dyspnea type: dyspnea on exertion Qualified Code(s): R06.09 - Other forms of dyspnea (4) Hypoxemia SNOMED Code(s): 537363328 Code(s): R09.02 - HYPOXEMIA Status: Resolved Priority: High Current Visit: Yes - Problem List Review Problem List Initiated/Reviewed/Updated: Yes - My Orders Last 24 Hours: My Active Orders 01/23/19 22:00 Azithromycin [Zithromax] 250 mg PO DAILY 01/24/19 07:00 predniSONE 40 mg PO WITHBREAKFAST 01/24/19 11:14 predniSONE 40 mg PO ONETIME ONE - Plan Plan:: Assessment * COPD exacerbation with hypoxemia * Chest x-ray: 1. Emphysematous change. 2. Chronic appearing pulmonary vascular congestion. 3. Nothing acute is definitely appreciated. * ABG: PH 7.48, PCO2 42.0, PO2 53.0, HCO3 30.7 * Heart failure with reduced ejection fractionstable * BNP 4487 ( November 08, 2018: 4376) * reported ejection fraction of 25% * mild metabolic alkalosis likely secondary to diuretics * Mild hypokalemia -> resolved * Recent tobaccoismquit one month ago: Refuses nicotine patch Plan * Admit to floor on telemetry on observation * FiO2 to keep oxygen saturations between 90 and 94%. - wean as able * Albuterol and DuoNeb * Prednisone 40 mg daily * Azithromycin 500mg initially and then 250mg for 4 days * Continue home meds * Replenish potassium - resolved * Recheck CBC, CMP, and magnesium in the morning * VTE prophylaxis with Lovenox - refusing lovenox; will add SCDs. * CODE STATUS: Full code * Length of stay 1-2 days
[2019-01-23] MEDS ORDERED: predniSONE 20 MG Tab PO ONE (12:15)
[2019-01-23] MEDS ORDERED: LORazepam 2 MG/ML SDV ONE (19:17)
[2019-01-23] MEDS ORDERED: methylPREDNISolone Sodium Succinate 125 MG/2 ML SDV IVPUSH ONE (19:29)
[2019-01-23] MEDS ORDERED: Levalbuterol HCl 1.25 MG/3 ML Neb NEB PRN (19:36)
--- NOTE | 2019-01-23 20:11 | PCM.SN ---
- Free Text/Narrative Note: Called to patient's bedside secondary to acute discogenic event. At just after 1900 as per therapist requested that I attend the patient at his bedside. He was sitting at the edge of his bed leaning over tachypneic with respiratory rate in the 40s. Heart rate was in the 120s. He was using accessory muscles. Patient was clearly anxious and audibly wheezing. Lung sounds were diminished and expiratory wheezes were noted. No rales or rhonchi noted. He was unable initially to use his breathing treatment because he felt like he couldn't catch his breath. Ativan 0.5 mg IM was given and easy Pap was applied on the last portion of his albuterol breathing treatment. Respiratory rate improved and he had significant improvement in his work of breathing. After the breathing treatment his wheezing significantly improved and air movement was better. Chest x-ray showed some atelectasis on the right lower lobe, hyperinflated lungs , no infiltrate or pneumothorax. Radiologist reading impression: 1. Chronic appearing pulmonary vascular congestion. Curly B-lines are noted suspicious for worsening pulmonary vascular congestion with interstitial pulmonary edema. 2. Stable emphysematous change. Lab work was ordered to include a CMP, BNP, d- dimer. EKG shows a ventricular rate of 117 bpm with sinus tachycardia. EKG was significant for left bundle branch block. labs: Sodium 139, potassium 4.5, BUN 21, creatinine 1.0, glucose 154, BNP slightly higher at 5199, d-dimer slightly elevated at 0.56 normal is up to 0.50. Patient be given extra Lasix 20 mg IV tonight. Solu-Medrol 125 mg IV bolus. I'm going to switch his albuterol to Xopenex secondary to his tachycardia. Also, he is on a nonselective beta alison, carvedilol, which may be worsening his bronchoconstriction. This dyspneic episode occurred approximately 2 hours after his 25 mg dose of carvedilol. I will DC the carvedilol and switch to metoprolol 100 mg twice a day in the morning. Patient was reevaluated at 2100. He is resting comfortably with good air entry and significant decreased wheezing.
--- NOTE | 2019-01-23 20:16 | CR ---
Chest: Frontal view of the chest was obtained utilizing portable technique. Comparison: Prior chest x-ray of 01/22/19. Lungs are again noted to be hyperinflated compatible with emphysematous change. Heart size is slightly enlarged. Increased central lung markings are seen which appears stable possibly due to chronic pulmonary vascular congestion. There are increased Tamir B lines being seen within both lung bases which appear to be slightly increased from prior study most likely due to early acute interstitial pulmonary edema. No additional pulmonary densities are seen. Bony structures are grossly intact. Impression: 1. Chronic-appearing pulmonary vascular congestion. Tamir B lines are noted suspicious for worsening pulmonary vascular congestion with interstitial pulmonary edema. 2. Stable emphysematous change. Diagnostic code #3
[2019-01-23] MEDS: Ipratropium 0.02% 0.5 MG/2.5 ML Neb Soln NEB SCH (21:03)
[2019-01-23] MEDS: Levalbuterol HCl 1.25 MG/3 ML Neb NEB SCH (21:03)
[2019-01-23] MEDS ORDERED: Furosemide 20 MG/2 ML VIAL IVPUSH ONE (21:07)
[2019-01-23] MEDS: guaiFENesin 600 MG Tab.ER PO SCH ×2 (21:26→22:14)
[2019-01-23] MEDS: Azithromycin 250 MG Tab PO SCH (21:27)
[2019-01-24] MEDS: Levalbuterol HCl 1.25 MG/3 ML Neb NEB SCH (02:03)
[2019-01-24] MEDS: Ipratropium 0.02% 0.5 MG/2.5 ML Neb Soln NEB SCH ×4 (02:03→20:11)
--- NOTE | 2019-01-24 06:29 | PCM.PN ---
- General Info Date of Service: 01/24/19 Admission Dx/Problem (Free Text): Admission Diagnosis/Problem Admission Diagnosis/Problem COPD, Moderate chronic obstructive pulmonary disease Functional Status: Reports: Pain Controlled, Tolerating Diet, Ambulating, Urinating, Incentive Spirometry, Other (Acapella ). Denies: New Symptoms - Review of Systems General: Reports: No Symptoms. Denies: Fever, Weakness, Fatigue, Malaise, Chills HEENT: Reports: No Symptoms. Denies: Headaches, Sore Throat Pulmonary: Reports: Shortness of Breath (improved but worse with ambulation, mildly worse than baseline ), Cough (chronic ), Sputum (chronic - occasional ), Wheezing (Chronic ) Cardiovascular: Reports: No Symptoms. Denies: Chest Pain, Palpitations, Edema Gastrointestinal: Reports: No Symptoms. Denies: Abdominal Pain, Constipation, Diarrhea, Nausea, Vomiting Genitourinary: Reports: No Symptoms. Denies: Dysuria, Pain Musculoskeletal: Reports: No Symptoms Skin: Reports: No Symptoms Neurological: Reports: No Symptoms, Weakness. Denies: Confusion, Difficulty Walking, Gait Disturbance Psychiatric: Reports: No Symptoms - Patient Data Vitals - Most Recent: Last Vital Signs Temp 98.2 F 01/23/19 15:16 Pulse 96 01/23/19 21:31 Resp 22 H 01/23/19 21:31 BP 146/95 H 01/23/19 21:31 Pulse Ox 91 L 01/24/19 02:05 Weight - Most Recent: 133 lb 4.8 oz I&O - Last 24 Hours: Intake & Output 01/23/19 01/23/19 01/24/19 14:59 22:59 06:59 Intake Total 760 1520 Balance 760 1520 Lab Results Last 24 Hours: Laboratory Results - last 24 hr 01/23/19 01/23/19 01/23/19 Range/Units 05:09 20:03 20:03 WBC (4.23-9.07) K/mm3 RBC (4.63-6.08) M/mm3 Hgb (13.7-17.5) gm/dl Hct (40.1-51.0) % MCV (79.0-92.2) fl MCH (25.7-32.2) pg MCHC (32.2-35.5) g/dl RDW Std Deviation (35.1-43.9) fL Plt Count (163-337) K/mm3 MPV (9.4-12.3) fl Neut % (Auto) (34.0-67.9) % Lymph % (Auto) (21.8-53.1) % [place] % (Auto) (5.3-12.2) % Eos % (Auto) (0.8-7.0) Baso % (Auto) (0.1-1.2) % Neut # (Auto) (1.78-5.38) K/mm3 Lymph # (Auto) (1.32-3.57) K/mm3 [place] # (Auto) (0.30-0.82) K/mm3 Eos # (Auto) (0.04-0.54) K/mm3 Baso # (Auto) (0.01-0.08) K/mm3 Manual Slide Review Abnormal smear D-Dimer, Quantitative 0.56 H (0.19-0.50) mg/L Sodium 139 (136-145) mEq/L Potassium 4.5 (3.5-5.1) mEq/L Chloride 102 (98-107) mEq/L Carbon Dioxide 33 H (21-32) mEq/L Anion Gap 8.5 (5-15) BUN 21 H (7-18) mg/dL Creatinine 1.0 (0.7-1.3) mg/dL Est Cr Clr Drug Dosing 63.82 mL/min Estimated GFR (MDRD) > 60 (>60) mL/min BUN/Creatinine Ratio 21.0 H (14-18) Glucose 154 H (80-115) mg/dL Calcium 8.8 (8.5-10.1) mg/dL Magnesium 1.9 (1.8-2.4) mg/dl Total Bilirubin 0.6 (0.2-1.0) mg/dL AST 26 (15-37) U/L ALT 33 (16-63) U/L Alkaline Phosphatase 76 (46-116) U/L C-Reactive Protein (<1.0) mg/dL NT-Pro-B Natriuret Pep (0-125) pg/mL Total Protein 6.7 (6.4-8.2) g/dl Albumin 3.3 L (3.4-5.0) g/dl Globulin 3.4 gm/dL Albumin/Globulin Ratio 1.0 (1-2) 01/23/19 01/24/19 01/24/19 Range/Units 20:03 05:10 05:10 WBC 6.16 (4.23-9.07) K/mm3 RBC 5.05 (4.63-6.08) M/mm3 Hgb 15.1 (13.7-17.5) gm/dl Hct 44.9 (40.1-51.0) % MCV 88.9 (79.0-92.2) fl MCH 29.9 (25.7-32.2) pg MCHC 33.6 (32.2-35.5) g/dl RDW Std Deviation 48.2 H (35.1-43.9) fL Plt Count 200 (163-337) K/mm3 MPV 9.8 (9.4-12.3) fl Neut % (Auto) 92.9 H (34.0-67.9) % Lymph % (Auto) 6.3 L (21.8-53.1) % [place] % (Auto) 0.8 L (5.3-12.2) % Eos % (Auto) 0 L (0.8-7.0) Baso % (Auto) 0.0 L (0.1-1.2) % Neut # (Auto) 5.72 H (1.78-5.38) K/mm3 Lymph # (Auto) 0.39 L (1.32-3.57) K/mm3 [place] # (Auto) 0.05 L (0.30-0.82) K/mm3 Eos # (Auto) 0.00 L (0.04-0.54) K/mm3 Baso # (Auto) 0.00 L (0.01-0.08) K/mm3 Manual Slide Review D-Dimer, Quantitative (0.19-0.50) mg/L Sodium 140 (136-145) mEq/L Potassium 3.9 (3.5-5.1) mEq/L Chloride 103 (98-107) mEq/L Carbon Dioxide 33 H (21-32) mEq/L Anion Gap 7.9 (5-15) BUN 21 H (7-18) mg/dL Creatinine 1.0 (0.7-1.3) mg/dL Est Cr Clr Drug Dosing 63.82 mL/min Estimated GFR (MDRD) > 60 (>60) mL/min BUN/Creatinine Ratio 21.0 H (14-18) Glucose 143 H (80-115) mg/dL Calcium 8.6 (8.5-10.1) mg/dL Magnesium 2.0 (1.8-2.4) mg/dl Total Bilirubin 0.5 (0.2-1.0) mg/dL AST 20 (15-37) U/L ALT 28 (16-63) U/L Alkaline Phosphatase 73 (46-116) U/L C-Reactive Protein < 0.2 (<1.0) mg/dL NT-Pro-B Natriuret Pep 5199 H (0-125) pg/mL Total Protein 6.4 (6.4-8.2) g/dl Albumin 3.2 L (3.4-5.0) g/dl Globulin 3.2 gm/dL Albumin/Globulin Ratio 1.0 (1-2) Med Orders - Current: Current Medications Acetaminophen (Tylenol) 650 mg PO Q4H PRN PRN Reason: Pain (Mild 1-3)/fever Aspirin (Halfprin) 81 mg PO DAILY [facility] Last Admin: 01/23/19 10:06 Dose: 81 mg Azithromycin (Zithromax) 250 mg PO DAILY [facility] Stop: 01/26/19 09:01 Last Admin: 01/23/19 21:27 Dose: 250 mg Furosemide (Lasix) 20 mg PO DAILY [facility] Last Admin: 01/23/19 10:06 Dose: 20 mg Guaifenesin (Mucinex) 600 mg PO TID [facility] Last Admin: 01/23/19 22:14 Dose: Not Given Ipratropium [place] (Atrovent) 0.5 mg NEB Q6HRRT [facility] Last Admin: 01/24/19 02:03 Dose: 0.5 mg Levalbuterol HCl (Xopenex) 1.25 mg NEB Q6HRRT [facility] Last Admin: 01/24/19 02:03 Dose: 1.25 mg Levalbuterol HCl (Xopenex) 1.25 mg NEB Q2H PRN PRN Reason: Shortness of Breath Lisinopril (Prinivil) 20 mg PO DAILY [facility] Last Admin: 01/23/19 10:07 Dose: 20 mg Metoprolol Tartrate (Lopressor) 100 mg PO Q12HR [facility] Ondansetron HCl (Zofran) 4 mg IV Q4H PRN PRN Reason: Nausea/Vomiting Prednisone (Prednisone) 40 mg PO WITHBREAKFAST [facility] Sodium Chloride (Saline Flush) 10 ml FLUSH ASDIRECTED PRN PRN Reason: Keep Vein Open Discontinued Medications Albuterol (Proventil Neb Soln) 2.5 mg NEB Q2H PRN PRN Reason: Shortness Of Breath/wheezing Last Admin: 01/23/19 18:42 Dose: 2.5 mg Albuterol/Ipratropium (Duoneb 3.0-0.5 Mg/3 Ml) 3 ml NEB ONETIME ONE Stop: 01/22/19 17:13 Last Admin: 01/22/19 18:27 Dose: 3 ml Albuterol/Ipratropium (Duoneb 3.0-0.5 Mg/3 Ml) 3 ml NEB Q6HRRT [facility] Last Admin: 01/23/19 14:26 Dose: 3 ml Enoxaparin Sodium (Lovenox) 40 mg SUBCUT DAILY [facility] Last Admin: 01/23/19 10:08 Dose: Not Given Furosemide (Lasix) 20 mg IVPUSH NOW ONE Stop: 01/23/19 21:08 Last Admin: 01/23/19 21:26 Dose: 20 mg Azithromycin 500 mg/ Sodium (Chloride) 250 mls @ 250 mls/hr IV ONETIME ONE Stop: 01/22/19 22:59 Last Admin: 01/22/19 22:13 Dose: 250 mls/hr Lorazepam (Ativan) Confirm Administered Dose 2 mg .ROUTE .STK-MED ONE Stop: 01/23/19 19:18 Last Admin: 01/23/19 20:47 Dose: 0.5 mg Methylprednisolone Sodium Succinate (Solu-Medrol) 125 mg IVPUSH ONETIME ONE Stop: 01/23/19 19:30 Last Admin: 01/23/19 21:26 Dose: 125 mg Nf Med 1 Each ( Carvedilol 25 Mg) * Pt Own Med 25 mg PO BIDMEALS [facility] Nf Medication 1 Each (Carvedilol 25 Mg)* Pt Own Med 0 mg PO BIDMEALS [facility] Last Admin: 01/23/19 17:24 Dose: 25 mg Potassium Chloride (Klor-Con M20) 20 meq PO ONETIME ONE Stop: 01/22/19 21:46 Last Admin: 01/22/19 22:13 Dose: 20 meq Prednisone (Prednisone) 40 mg PO ONETIME ONE Stop: 01/22/19 17:13 Last Admin: 01/22/19 17:57 Dose: 40 mg Prednisone (Prednisone) 40 mg PO ONETIME ONE Stop: 01/23/19 12:16 Last Admin: 01/23/19 12:52 Dose: 40 mg - Exam Quality Assessment: Supplemental Oxygen, DVT Prophylaxis General: Alert, Oriented, Cooperative, No Acute Distress HEENT: Pupils Equal, Pupils Reactive, EOMI, Mucous Membr. Moist/[place] Neck: Supple, Trachea Midline Lungs: Clear to Auscultation, Normal Respiratory Effort Cardiovascular: Regular Rate, Regular Rhythm GI/Abdominal Exam: Normal Bowel Sounds, Soft, Non-Tender, No Distention, No Abnormal Bruit (Male) Exam: Deferred Back Exam: Normal Inspection, Full Range of Motion Extremities: Normal Inspection, Normal Range of Motion, Non-Tender, No Pedal Edema, Normal Capillary Refill Peripheral Pulses: 3+: Radial (L), Radial (R), Dorsalis Pedis (L), Dorsalis Pedis (R) Skin: Warm, Dry, Intact Neurological: No New Focal Deficit Psy/Mental Status: Alert, Normal Affect, Normal Mood - Problem List & Annotations (1) COPD exacerbation SNOMED Code(s): 571408031 Code(s): J44.1 - CHRONIC OBSTRUCTIVE PULMONARY DISEASE W (ACUTE) EXACERBATION Status: Acute Priority: High Current Visit: Yes (2) Congestive heart failure SNOMED Code(s): 90493287 Code(s): I50.9 - HEART FAILURE, UNSPECIFIED Status: Chronic Priority: Medium Current Visit: No Qualifiers: Heart failure type: unspecified Heart failure chronicity: acute on chronic Qualified Code(s): I50.9 - Heart failure, unspecified (3) Dyspnea SNOMED Code(s): 794675282 Code(s): R06.00 - DYSPNEA, UNSPECIFIED Status: Acute Priority: High Current Visit: Yes Qualifiers: Dyspnea type: dyspnea on exertion Qualified Code(s): R06.09 - Other forms of dyspnea (4) Hypoxemia SNOMED Code(s): 594797991 Code(s): R09.02 - HYPOXEMIA Status: Resolved Priority: High Current Visit: Yes (5) Anxiety SNOMED Code(s): 16488298 Code(s): F41.9 - ANXIETY DISORDER, UNSPECIFIED Status: Acute Priority: High Current Visit: Yes - Problem List Review Problem List Initiated/Reviewed/Updated: Yes - My Orders Last 24 Hours: My Active Orders 01/23/19 15:03 Antiembolic Devices [RC] BID SCD [Sequential Compression Device] [OM.PC] Routine 01/23/19 22:00 Azithromycin [Zithromax] 250 mg PO DAILY 01/24/19 07:00 predniSONE 40 mg PO WITHBREAKFAST - Plan Plan:: Assessment * COPD exacerbation with hypoxemia * Chest x-ray: 1. Emphysematous change. 2. Chronic appearing pulmonary vascular congestion. 3. Nothing acute is definitely appreciated. * ABG: PH 7.48, PCO2 42.0, PO2 53.0, HCO3 30.7 * Heart failure with reduced ejection fractionstable * BNP 4487 ( November 08, 2018: 4376), 5199 * reported ejection fraction of 25% * mild metabolic alkalosis likely secondary to diuretics * Mild hypokalemia -> resolved * Recent tobaccoism quit one month ago: Refuses nicotine patch * Had apparent anxiety attack yesterday evening - see note for specific Plan * Admit to floor on telemetry on observation -> upgraded to inpatient * Has follow-up with pulmonology and cardiology on 01/26/19 in [place] * FiO2 to keep oxygen saturations between 90 and 94%. - wean as able * RT to qualify for home oxygen. * PRN Ativan for anxiety * Switch all albuterol containing meds to Xopenex due to tachycardia * Increase Lasix to 20mg IVP daily * Increase steroid to 60mg solu-medrol IVP daily * Azithromycin 500mg initially and then 250mg for 4 days * Continue home meds * Replenish potassium - resolved * Recheck CBC, CMP, and magnesium in the morning * VTE prophylaxis with Lovenox - refusing lovenox; will add SCDs. * CODE STATUS: Full code * Length of stay: likely discharge tomorrow
[2019-01-24] MEDS: Metoprolol Tartrate 100 MG Tab PO SCH ×2 (06:35→09:44)
[2019-01-24] MEDS ORDERED: predniSONE 20 MG Tab PO SCH (07:00)
[2019-01-24] MEDS: Levalbuterol HCl 1.25 MG/0.5 ML Neb NEB SCH ×3 (08:22→20:11)
[2019-01-24] MEDS: guaiFENesin 600 MG Tab.ER PO SCH ×3 (09:44→21:20)
[2019-01-24] MEDS: Azithromycin 250 MG Tab PO SCH (09:44)
[2019-01-24] MEDS: LISINOPRIL 20 MG PO SCH (09:47)
[2019-01-24] MEDS: ASPIRIN 81 MG PO SCH (09:47)
[2019-01-24] MEDS: Furosemide 20 MG Tab *PT OWN MED PO SCH (09:47)
[2019-01-24] MEDS ORDERED: LORazepam 0.5 MG Tab PO PRN (12:52)
[2019-01-24] MEDS ORDERED: methylPREDNISolone Sodium Succinate 40 MG/1 ML SDV IVPUSH ONE (15:01)
[2019-01-24] MEDS ORDERED: Furosemide 20 MG/2 ML VIAL IVPUSH ONE (15:02)
[2019-01-24] MEDS: Carvedilol 12.5 MG Tab PO SCH (18:33)
[2019-01-24] MEDS: Amoxicillin/Clavulanate K 875-125 MG Tab PO SCH (21:20)
[2019-01-25] MEDS: Levalbuterol HCl 1.25 MG/0.5 ML Neb NEB SCH ×2 (03:21→08:23)
[2019-01-25] MEDS: Ipratropium 0.02% 0.5 MG/2.5 ML Neb Soln NEB SCH ×4 (03:21→20:07)
[2019-01-25] MEDS: Carvedilol 12.5 MG Tab PO SCH ×2 (06:26→16:53)
[2019-01-25] MEDS ORDERED: methylPREDNISolone Sodium Succinate 40 MG/1 ML SDV IVPUSH SCH (09:00)
[2019-01-25] MEDS ORDERED: Furosemide 20 MG/2 ML VIAL IVPUSH SCH (09:00)
[2019-01-25] MEDS ORDERED: Furosemide 40 MG/4 ML VIAL IVPUSH ONE ×2 (10:45→17:00)
[2019-01-25] MEDS: guaiFENesin 600 MG Tab.ER PO SCH ×3 (10:54→20:42)
[2019-01-25] MEDS: Lisinopril 20 MG Tab PO SCH (10:55)
[2019-01-25] MEDS: Aspirin 81 MG Tab.EC PO SCH (10:57)
[2019-01-25] MEDS: Amoxicillin/Clavulanate K 875-125 MG Tab PO SCH (11:23)
--- NOTE | 2019-01-25 11:30 | PCM.PN ---
- General Info Date of Service: 01/25/19 Admission Dx/Problem (Free Text): Admission Diagnosis/Problem Admission Diagnosis/Problem COPD, Moderate chronic obstructive pulmonary disease Functional Status: Reports: Pain Controlled, Tolerating Diet, Ambulating, Urinating, Incentive Spirometry, Other (Acapella ). Denies: New Symptoms - Review of Systems General: Reports: No Symptoms. Denies: Fever, Weakness, Fatigue, Malaise, Chills HEENT: Reports: No Symptoms. Denies: Headaches, Sore Throat Pulmonary: Reports: Shortness of Breath (Slightly worse than baseline - worse with ambulation), Cough (Chronic ), Sputum (Chronic ), Wheezing (chronic - improved over admission ) Cardiovascular: Reports: Dyspnea on Exertion. Denies: Chest Pain, Palpitations , Edema, Lightheadedness Gastrointestinal: Reports: No Symptoms. Denies: Abdominal Pain, Constipation, Diarrhea, Nausea, Vomiting Genitourinary: Reports: No Symptoms. Denies: Pain Musculoskeletal: Reports: No Symptoms Skin: Reports: No Symptoms Neurological: Reports: No Symptoms. Denies: Difficulty Walking, Gait Disturbance Psychiatric: Reports: No Symptoms - Patient Data Vitals - Most Recent: Last Vital Signs Temp 97.3 F 01/25/19 08:18 Pulse 84 01/25/19 08:18 Resp 16 01/25/19 08:18 BP 148/85 H 01/25/19 10:55 Pulse Ox 92 L 01/25/19 08:24 Weight - Most Recent: 136 lb I&O - Last 24 Hours: Intake & Output 01/24/19 01/25/19 01/25/19 22:59 06:59 14:59 Intake Total 1180 450 360 Output Total 900 1050 Balance 280 -600 360 Lab Results Last 24 Hours: Laboratory Results - last 24 hr 01/25/19 01/25/19 Range/Units 05:32 05:32 WBC 11.49 H (4.23-9.07) K/mm3 RBC 4.96 (4.63-6.08) M/mm3 Hgb 14.6 (13.7-17.5) gm/dl Hct 44.9 (40.1-51.0) % MCV 90.5 (79.0-92.2) fl MCH 29.4 (25.7-32.2) pg MCHC 32.5 (32.2-35.5) g/dl RDW Std Deviation 48.5 H (35.1-43.9) fL Plt Count 201 (163-337) K/mm3 MPV 10.3 (9.4-12.3) fl Neut % (Auto) 89.9 H (34.0-67.9) % Lymph % (Auto) 4.4 L (21.8-53.1) % [place] % (Auto) 5.3 (5.3-12.2) % Eos % (Auto) 0 L (0.8-7.0) Baso % (Auto) 0.1 (0.1-1.2) % Neut # (Auto) 10.33 H (1.78-5.38) K/mm3 Lymph # (Auto) 0.51 L (1.32-3.57) K/mm3 [place] # (Auto) 0.61 (0.30-0.82) K/mm3 Eos # (Auto) 0.00 L (0.04-0.54) K/mm3 Baso # (Auto) 0.01 (0.01-0.08) K/mm3 Manual Slide Review Abnormal smear Sodium 139 (136-145) mEq/L Potassium 4.0 (3.5-5.1) mEq/L Chloride 103 (98-107) mEq/L Carbon Dioxide 33 H (21-32) mEq/L Anion Gap 7.0 (5-15) BUN 24 H (7-18) mg/dL Creatinine 1.0 (0.7-1.3) mg/dL Est Cr Clr Drug Dosing 65.12 mL/min Estimated GFR (MDRD) > 60 (>60) mL/min BUN/Creatinine Ratio 24.0 H (14-18) Glucose 122 H (80-115) mg/dL Calcium 8.3 L (8.5-10.1) mg/dL Magnesium 2.0 (1.8-2.4) mg/dl Total Bilirubin 0.4 (0.2-1.0) mg/dL AST 12 L (15-37) U/L ALT 22 (16-63) U/L Alkaline Phosphatase 62 (46-116) U/L C-Reactive Protein < 0.2 (<1.0) mg/dL Total Protein 6.0 L (6.4-8.2) g/dl Albumin 3.0 L (3.4-5.0) g/dl Globulin 3.0 gm/dL Albumin/Globulin Ratio 1.0 (1-2) Med Orders - Current: Current Medications Acetaminophen (Tylenol) 650 mg PO Q4H PRN PRN Reason: Pain (Mild 1-3)/fever Aspirin (Halfprin) 81 mg PO DAILY [facility] Last Admin: 01/25/19 10:57 Dose: 81 mg Carvedilol (Coreg) 12.5 mg PO BIDMEALS [facility] Last Admin: 01/25/19 06:26 Dose: 12.5 mg Furosemide (Lasix) 40 mg IVPUSH ONETIME ONE Stop: 01/25/19 17:01 Furosemide (Lasix) 40 mg PO DAILY [facility] Guaifenesin (Mucinex) 600 mg PO TID [facility] Last Admin: 01/25/19 10:54 Dose: 600 mg Ipratropium [place] (Atrovent) 0.5 mg NEB Q6HRRT [facility] Last Admin: 01/25/19 08:24 Dose: 0.5 mg Lisinopril (Prinivil) 20 mg PO DAILY [facility] Last Admin: 01/25/19 10:55 Dose: 20 mg Lorazepam (Ativan) 0.5 mg PO Q4H PRN PRN Reason: Anxiety Methylprednisolone (Medrol) 8 mg PO WITHBREAKFAST ONE Stop: 01/26/19 06:01 Methylprednisolone Sodium Succinate (Solu-Medrol) 60 mg IVPUSH DAILY [facility] Last Admin: 01/25/19 10:54 Dose: 60 mg Ondansetron HCl (Zofran) 4 mg IV Q4H PRN PRN Reason: Nausea/Vomiting Sodium Chloride (Saline Flush) 10 ml FLUSH ASDIRECTED PRN PRN Reason: Keep Vein Open Discontinued Medications Albuterol (Proventil Neb Soln) 2.5 mg NEB Q2H PRN PRN Reason: Shortness Of Breath/wheezing Last Admin: 01/23/19 18:42 Dose: 2.5 mg Albuterol/Ipratropium (Duoneb 3.0-0.5 Mg/3 Ml) 3 ml NEB ONETIME ONE Stop: 01/22/19 17:13 Last Admin: 01/22/19 18:27 Dose: 3 ml Albuterol/Ipratropium (Duoneb 3.0-0.5 Mg/3 Ml) 3 ml NEB Q6HRRT [facility] Last Admin: 01/23/19 14:26 Dose: 3 ml Amoxicillin/Clavulanate Potassium (Augmentin 875 Mg/125 Mg) 1 tab PO Q12HR [facility] Stop: 01/27/19 09:01 Last Admin: 01/25/19 11:23 Dose: Not Given Aspirin (Halfprin) 81 mg PO DAILY [facility] Last Admin: 01/24/19 09:47 Dose: 81 mg Azithromycin (Zithromax) 250 mg PO DAILY [facility] Stop: 01/26/19 09:01 Last Admin: 01/24/19 09:44 Dose: 250 mg Enoxaparin Sodium (Lovenox) 40 mg SUBCUT DAILY [facility] Last Admin: 01/23/19 10:08 Dose: Not Given Furosemide (Lasix) 20 mg PO DAILY [facility] Last Admin: 01/24/19 09:47 Dose: 20 mg Furosemide (Lasix) 20 mg IVPUSH NOW ONE Stop: 01/23/19 21:08 Last Admin: 01/23/19 21:26 Dose: 20 mg Furosemide (Lasix) 20 mg IVPUSH NOW ONE Stop: 01/24/19 15:03 Last Admin: 01/24/19 15:58 Dose: 20 mg Furosemide (Lasix) 20 mg IVPUSH DAILY [facility] Last Admin: 01/25/19 11:18 Dose: Not Given Furosemide (Lasix) 40 mg IVPUSH NOW ONE Stop: 01/25/19 10:46 Last Admin: 01/25/19 11:12 Dose: 40 mg Azithromycin 500 mg/ Sodium (Chloride) 250 mls @ 250 mls/hr IV ONETIME ONE Stop: 01/22/19 22:59 Last Admin: 01/22/19 22:13 Dose: 250 mls/hr Levalbuterol HCl (Xopenex) 1.25 mg NEB Q6HRRT [facility] Last Admin: 01/24/19 02:03 Dose: 1.25 mg Levalbuterol HCl (Xopenex) 1.25 mg NEB Q2H PRN PRN Reason: Shortness of Breath Levalbuterol HCl (Xopenex) 1.25 mg NEB Q6HRRT [facility] Last Admin: 01/25/19 08:23 Dose: 1.25 mg Lisinopril (Prinivil) 20 mg PO DAILY [facility] Last Admin: 01/24/19 09:47 Dose: 20 mg Lorazepam (Ativan) Confirm Administered Dose 2 mg .ROUTE .STK-MED ONE Stop: 01/23/19 19:18 Last Admin: 01/23/19 20:47 Dose: 0.5 mg Methylprednisolone Sodium Succinate (Solu-Medrol) 125 mg IVPUSH ONETIME ONE Stop: 01/23/19 19:30 Last Admin: 01/23/19 21:26 Dose: 125 mg Methylprednisolone Sodium Succinate (Solu-Medrol) 60 mg IVPUSH ONETIME ONE Stop: 01/24/19 15:02 Last Admin: 01/24/19 15:58 Dose: 60 mg Metoprolol Tartrate (Lopressor) 100 mg PO Q12HR [facility] Last Admin: 01/24/19 09:44 Dose: 100 mg Nf Med 1 Each ( Carvedilol 25 Mg) * Pt Own Med 25 mg PO BIDMEALS [facility] Nf Medication 1 Each (Carvedilol 25 Mg)* Pt Own Med 0 mg PO BIDMEALS [facility] Last Admin: 01/23/19 17:24 Dose: 25 mg Potassium Chloride (Klor-Con M20) 20 meq PO ONETIME ONE Stop: 01/22/19 21:46 Last Admin: 01/22/19 22:13 Dose: 20 meq Prednisone (Prednisone) 40 mg PO ONETIME ONE Stop: 01/22/19 17:13 Last Admin: 01/22/19 17:57 Dose: 40 mg Prednisone (Prednisone) 40 mg PO ONETIME ONE Stop: 01/23/19 12:16 Last Admin: 01/23/19 12:52 Dose: 40 mg Prednisone (Prednisone) 40 mg PO WITHBREAKFAST [facility] Last Admin: 01/24/19 06:35 Dose: 40 mg - Exam Quality Assessment: Supplemental Oxygen, DVT Prophylaxis General: Alert, Oriented, Cooperative, No Acute Distress HEENT: Pupils Equal, Pupils Reactive, EOMI, Mucous Membr. Moist/[place] Neck: Supple, Trachea Midline Lungs: Decreased Breath Sounds (worse in bases ), Wheezing (generalized - improved ) Cardiovascular: Regular Rate, Regular Rhythm GI/Abdominal Exam: Normal Bowel Sounds, Soft, Non-Tender, No Distention, No Abnormal Bruit (Male) Exam: Deferred Back Exam: Normal Inspection, Full Range of Motion Extremities: Normal Inspection, Normal Range of Motion, Non-Tender, No Pedal Edema, Normal Capillary Refill Skin: Warm, Dry, Intact Neurological: No New Focal Deficit Psy/Mental Status: Alert, Normal Affect, Normal Mood - Problem List & Annotations (1) COPD exacerbation SNOMED Code(s): 151810949 Code(s): J44.1 - CHRONIC OBSTRUCTIVE PULMONARY DISEASE W (ACUTE) EXACERBATION Status: Acute Priority: High Current Visit: Yes (2) Congestive heart failure SNOMED Code(s): 54625895 Code(s): I50.9 - HEART FAILURE, UNSPECIFIED Status: Chronic Priority: Medium Current Visit: No Qualifiers: Heart failure type: unspecified Heart failure chronicity: acute on chronic Qualified Code(s): I50.9 - Heart failure, unspecified (3) Dyspnea SNOMED Code(s): 118705342 Code(s): R06.00 - DYSPNEA, UNSPECIFIED Status: Acute Priority: High Current Visit: Yes Qualifiers: Dyspnea type: dyspnea on exertion Qualified Code(s): R06.09 - Other forms of dyspnea (4) Hypoxemia SNOMED Code(s): 702675799 Code(s): R09.02 - HYPOXEMIA Status: Resolved Priority: High Current Visit: Yes (5) Anxiety SNOMED Code(s): 58341646 Code(s): F41.9 - ANXIETY DISORDER, UNSPECIFIED Status: Acute Priority: High Current Visit: Yes - Problem List Review Problem List Initiated/Reviewed/Updated: Yes - My Orders Last 24 Hours: My Active Orders 01/24/19 12:52 LORazepam [Ativan] 0.5 mg PO Q4H PRN 01/24/19 19:00 Carvedilol [Coreg] 12.5 mg PO BIDMEALS 01/25/19 09:00 methylPREDNISolone Sod Succ [Solu-MEDROL] 60 mg IVPUSH DAILY 01/25/19 17:00 Furosemide [Lasix] 40 mg IVPUSH ONETIME ONE 01/26/19 06:00 methylPREDNISolone [Medrol] 8 mg PO WITHBREAKFAST ONE 01/26/19 09:00 Furosemide [Lasix] 40 mg PO DAILY - Plan Plan:: Assessment * COPD exacerbation with hypoxemia * Chest x-ray: 1. Emphysematous change. 2. Chronic appearing pulmonary vascular congestion. 3. Nothing acute is definitely appreciated. * ABG: PH 7.48, PCO2 42.0, PO2 53.0, HCO3 30.7 * Heart failure with reduced ejection fractionstable * BNP 4487 ( November 08, 2018: 4376), 5199 * reported ejection fraction of 25% * mild metabolic alkalosis likely secondary to diuretics * Mild hypokalemia -> resolved * Recent tobaccoism quit one month ago: Refuses nicotine patch * Had apparent anxiety attack yesterday evening - see note for specific Plan * Admit to floor on telemetry on observation -> upgraded to inpatient * Has follow-up with pulmonology and cardiology on 01/26/19 in [place] * FiO2 to keep oxygen saturations between 90 and 94%. - wean as able * RT to qualify for home oxygen. * Fluid/Sodium restriction * Stop Xopenex and continue ipratropium * Increase Lasix to 40mg IVP BID for 2 doses * Increase home oxygen * 60mg solu-medrol IVP daily; Start medrol dose pack tomorrow. * Discontinue abx * Continue home meds * Replenish potassium - resolved * Recheck CBC, CMP, and magnesium in the morning * VTE prophylaxis with Lovenox - refusing lovenox; will add SCDs. * CODE STATUS: Full code * Length of stay: likely discharge tomorrow
[2019-01-25] MEDS: Azithromycin 250 MG Tab PO SCH (12:28)
[2019-01-26] MEDS: Ipratropium 0.02% 0.5 MG/2.5 ML Neb Soln NEB SCH (02:30)
[2019-01-26] MEDS: Carvedilol 12.5 MG Tab PO SCH (06:18)
--- NOTE | 2019-01-26 06:26 | PCM.DCSUM1 ---
Discharge Summary - Hospital Course HPI Initial Comments: 63-year-old male comes to emergency room today with worsening shortness of breath. He was diagnosed with COPD 3 years years ago. Over the last 6 weeks he has had worsening shortness of breath, but today he can only walk approximately 10 feet. When he arrived in the ER he was placed on O2 secondary to saturations in the low 80s. He states that he has had increased productive sputum, white, yellowish, brown. He essentially stopped smoking approximately one month ago, except for approximately 4 cigarettes this month. He does see a dsp engineer, Dr. Rogers, and was scheduled for follow-up next week. He has a history of heart failure with reduced ejection fraction of reportedly 25%. He states that his legs have some mild edema, but they are better than normal. He was placed on 3 L nasal cannula in the emergency room and his oxygen saturations were 100% when I entered the room. This was decreased to 1 L and he was maintaining saturations in the mid 90s. He denies any fever, chills, or night sweats. Diagnosis: Stroke: No - Discharge Data Discharge Date: 01/26/19 (Admit date: 01/24/19) Discharge Disposition: Home, Self-Care 01 Condition: Good - Referral to Home Health Primary Care Physician: Ana Funes PA-C - Discharge Diagnosis/Problem(s) (1) COPD exacerbation SNOMED Code(s): 620686099 ICD Code: J44.1 - CHRONIC OBSTRUCTIVE PULMONARY DISEASE W (ACUTE) EXACERBATION Status: Acute Priority: High (2) Congestive heart failure SNOMED Code(s): 60445137 ICD Code: I50.9 - HEART FAILURE, UNSPECIFIED Status: Chronic Priority: Medium Qualifiers: Heart failure type: unspecified Heart failure chronicity: acute on chronic Qualified Code(s): I50.9 - Heart failure, unspecified (3) Dyspnea SNOMED Code(s): 013997659 ICD Code: R06.00 - DYSPNEA, UNSPECIFIED Status: Acute Priority: High Qualifiers: Dyspnea type: dyspnea on exertion Qualified Code(s): R06.09 - Other forms of dyspnea (4) Hypoxemia SNOMED Code(s): 412862348 ICD Code: R09.02 - HYPOXEMIA Status: Resolved Priority: High (5) Anxiety SNOMED Code(s): 32780232 ICD Code: F41.9 - ANXIETY DISORDER, UNSPECIFIED Status: Acute Priority: High - Patient Summary/Data Consults: Consultations 01/22/19 18:01 Respiratory Care Assess and Treatment [CONS] Routine Labs Pending at D/C: None Recommended Follow-up Testing/Procedures: Follow-up with pulmonology and cardiology as scheduled. Follow-up with primary care provider within 7-10 days of discharge. Hospital Course: Juanito was admitted to the hospital floor for acute onset shortness of breath believed to be from a COPD exacerbation. He was given steroids and nebulizers including albuterol and DuoNeb. His initial ED chest x-ray showed emphysematous change and chronic-appearing pulmonary vascular congestion. Nothing acute was noted. He was placed on oxygen and did utilize incentive spirometry and Acapella. His second day after admission he did have an acute exacerbation of shortness of breath. Dr. Fry was at bedside and repeat chest x-ray was obtained patient was also given IV Solu-Medrol and breathing treatment. This appeared to be more anxiety related he was given 0.5 mg IV push Ativan with excellent response. Patient does state that he is quite anxious but he did refuse a psychiatry consult well hospitalized. We did discuss that he may consider talking through his anxiety with his primary care provider and consider placing him on a medication. As we discussed Ativan is not a great option for him given his lung problems. Chest x-ray did show pulmonary vascular congestion which appears chronic however curly B-lines were noted which were suspicious for worsening pulmonary vascular congestion with interstitial pulmonary edema. He also had stable emphysematous change. because of this he was placed on IV push Lasix. Prior echo was obtained showing an EF of 20%. He was placed on a 2gm sodium and 2L fluid restriction. He did report that he recently had an episode where he felt like he had increased edema and did double his Lasix d for a few days which appeared to resolve the problems. Dr. Fry did attempt to change his carvedilol over to metoprolol however the patient did have a several beat run of V. tach and this was switched back to his home medication. He had been placed on azithromycin prior to this and there was concern as this may have caused his rhythm changed. He was then switched to Augmentin and ultimately antibiotics were discontinued entirely. He did note prior to discharge that he felt nearly back to his baseline but was somewhat dyspneic on exertion. He did have a pulmonology and cardiology appointment already scheduled on the day of discharge and it was stressed to him that he should follow-up with these providers as scheduled. He was also told that he should see his primary care provider in 7-10 days. He was instructed to continue his home medications as ordered. He was also told to take it daily weight and keep this in a journal, bringing with to all medical appointments. He was discharged on a Medrol Dosepak, every 8 hour scheduled ipratropium, and his Lasix dose was doubled from 20 mg daily to 40 mg daily. It was noted that his global professional and dsp engineer may have other ideas and he should be open to their suggestions. Home medications were otherwise continued. he was discharged today to [facility] for his appointments as mentioned. He was instructed to return to the emergency room or contact his primary care provider should symptoms return or worsen.he was instructed to utilize his oxygen with 1-2 L at rest and 3 L with exertion. - Patient Instructions Diet: Heart Healthy Diet, Low Sodium, Fluid Restriction Fluid Restriction: 2000 mL Activity: As Tolerated Showering/Bathing: May Shower Notify Provider of: Fever, Increased Pain, Nausea and/or Vomiting - Discharge Plan *PRESCRIPTION DRUG MONITORING PROGRAM REVIEWED*: No *COPY OF PRESCRIPTION DRUG MONITORING REPORT IN PATIENT LIBBY: No Prescriptions/Med Rec: Ipratropium [Atrovent] 0.5 mg NEB Q8HR 3 Days #9 neb Furosemide [Lasix] 40 mg PO DAILY #20 tablet methylPREDNISolone [Medrol] 84 mg PO ASDIRECTED #1 dospk Home Medications: Home Meds Albuterol [Ventolin HFA] 2 puff INH Q4H PRN 10/22/18 [History] Carvedilol 25 mg PO BIDMEALS 10/22/18 [History] Lisinopril 20 mg PO DAILY 10/22/18 [History] Umeclidinium Brm/Vilanterol Tr [Anoro Ellipta 62.5-25 MCG] 1 each IH DAILY 10/22 [History] Aspirin 81 mg PO DAILY 11/05/18 [History] Budesonide/Formoterol Fumarate [Symbicort 80-4.5 MCG] 1 puff IH BID #4 inhaler 11/06/18 [Rx] Furosemide [Lasix] 40 mg PO DAILY #20 tablet 01/26/19 [Rx] Ipratropium [Atrovent] 0.5 mg NEB Q8HR 3 Days #9 neb 01/26/19 [Rx] methylPREDNISolone [Medrol] 84 mg PO ASDIRECTED #1 dospk 01/26/19 [Rx] Oxygen Therapy Mode: Nasal Cannula Oxygen Flow Rate (L/min): 1 Maintain SpO2% greater than: 88 Patient Handouts: Chronic Obstructive Pulmonary Disease Exacerbation, Heart Failure Referrals: Ana Funes PA-C [Primary Care Provider] - 02/01/19 1:30 pm (Please check in at 1:15 pm.) - Discharge Summary/Plan Comment DC Time >30 min.: Yes (45 mins ) - General Info Date of Service: 01/26/19 Admission Dx/Problem (Free Text: Admission Diagnosis/Problem Admission Diagnosis/Problem COPD, Moderate chronic obstructive pulmonary disease Functional Status: Reports: Pain Controlled, Tolerating Diet, Ambulating, Urinating, Incentive Spirometry. Denies: New Symptoms - Review of Systems General: Reports: No Symptoms. Denies: Fever, Weakness, Fatigue, Malaise, Chills HEENT: Reports: No Symptoms. Denies: Headaches, Sore Throat Pulmonary: Reports: Shortness of Breath (chronic - at baseline currently ), Cough (chronic and at basline currently ), Sputum (chroinc and at baseline currently ), Wheezing (chronic and at baseline currently ) Cardiovascular: Reports: Dyspnea on Exertion (Chronic and slightly worse than baseline ). Denies: Chest Pain, Palpitations Gastrointestinal: Reports: No Symptoms. Denies: Abdominal Pain, Constipation, Diarrhea, Nausea, Vomiting Genitourinary: Reports: No Symptoms. Denies: Pain Musculoskeletal: Reports: No Symptoms Skin: Reports: No Symptoms. Denies: Cyanosis Neurological: Reports: No Symptoms. Denies: Pre-Existing Deficit, Trouble Speaking, Difficulty Walking, Gait Disturbance Psychiatric: Reports: No Symptoms - Patient Data Vitals - Most Recent: Last Vital Signs Temp 97.5 F 01/25/19 15:48 Pulse 80 01/26/19 06:18 Resp 20 01/26/19 03:12 BP 141/83 H 01/26/19 06:18 Pulse Ox 93 L 01/26/19 03:12 Weight - Most Recent: 131 lb 11.2 oz I&O - Last 24 hours: Intake & Output 01/25/19 01/25/19 01/26/19 14:59 22:59 06:59 Intake Total 360 550 400 Output Total 2100 1020 Balance 360 -5626 -589 Lab Results - Last 24 hrs: Laboratory Results - last 24 hr 01/25/19 01/25/19 01/26/19 Range/Units 05:32 05:32 04:59 WBC 11.49 H 10.23 H (4.23-9.07) K/mm3 RBC 4.96 5.35 (4.63-6.08) M/mm3 Hgb 14.6 15.4 (13.7-17.5) gm/dl Hct 44.9 47.9 (40.1-51.0) % MCV 90.5 89.5 (79.0-92.2) fl MCH 29.4 28.8 (25.7-32.2) pg MCHC 32.5 32.2 (32.2-35.5) g/dl RDW Std Deviation 48.5 H 48.2 H (35.1-43.9) fL Plt Count 201 204 (163-337) K/mm3 MPV 10.3 9.8 (9.4-12.3) fl Neut % (Auto) 89.9 H 86.4 H (34.0-67.9) % Lymph % (Auto) 4.4 L 5.6 L (21.8-53.1) % [place] % (Auto) 5.3 7.9 (5.3-12.2) % Eos % (Auto) 0 L 0 L (0.8-7.0) Baso % (Auto) 0.1 0.0 L (0.1-1.2) % Neut # (Auto) 10.33 H 8.84 H (1.78-5.38) K/mm3 Lymph # (Auto) 0.51 L 0.57 L (1.32-3.57) K/mm3 [place] # (Auto) 0.61 0.81 (0.30-0.82) K/mm3 Eos # (Auto) 0.00 L 0.00 L (0.04-0.54) K/mm3 Baso # (Auto) 0.01 0.00 L (0.01-0.08) K/mm3 Manual Slide Review Abnormal smear Sodium 139 (136-145) mEq/L Potassium 4.0 (3.5-5.1) mEq/L Chloride 103 (98-107) mEq/L Carbon Dioxide 33 H (21-32) mEq/L Anion Gap 7.0 (5-15) BUN 24 H (7-18) mg/dL Creatinine 1.0 (0.7-1.3) mg/dL Est Cr Clr Drug Dosing 65.12 mL/min Estimated GFR (MDRD) > 60 (>60) mL/min BUN/Creatinine Ratio 24.0 H (14-18) Glucose 122 H (80-115) mg/dL Calcium 8.3 L (8.5-10.1) mg/dL Magnesium 2.0 (1.8-2.4) mg/dl Total Bilirubin 0.4 (0.2-1.0) mg/dL AST 12 L (15-37) U/L ALT 22 (16-63) U/L Alkaline Phosphatase 62 (46-116) U/L C-Reactive Protein < 0.2 (<1.0) mg/dL Total Protein 6.0 L (6.4-8.2) g/dl Albumin 3.0 L (3.4-5.0) g/dl Globulin 3.0 gm/dL Albumin/Globulin Ratio 1.0 (1-2) 01/26/19 Range/Units 04:59 WBC (4.23-9.07) K/mm3 RBC (4.63-6.08) M/mm3 Hgb (13.7-17.5) gm/dl Hct (40.1-51.0) % MCV (79.0-92.2) fl MCH (25.7-32.2) pg MCHC (32.2-35.5) g/dl RDW Std Deviation (35.1-43.9) fL Plt Count (163-337) K/mm3 MPV (9.4-12.3) fl Neut % (Auto) (34.0-67.9) % Lymph % (Auto) (21.8-53.1) % [place] % (Auto) (5.3-12.2) % Eos % (Auto) (0.8-7.0) Baso % (Auto) (0.1-1.2) % Neut # (Auto) (1.78-5.38) K/mm3 Lymph # (Auto) (1.32-3.57) K/mm3 [place] # (Auto) (0.30-0.82) K/mm3 Eos # (Auto) (0.04-0.54) K/mm3 Baso # (Auto) (0.01-0.08) K/mm3 Manual Slide Review Sodium 140 (136-145) mEq/L Potassium 3.8 (3.5-5.1) mEq/L Chloride 102 (98-107) mEq/L Carbon Dioxide 36 H (21-32) mEq/L Anion Gap 5.8 (5-15) BUN 29 H (7-18) mg/dL Creatinine 1.0 (0.7-1.3) mg/dL Est Cr Clr Drug Dosing 63.06 mL/min Estimated GFR (MDRD) > 60 (>60) mL/min BUN/Creatinine Ratio 29.0 H (14-18) Glucose 111 (80-115) mg/dL Calcium 8.7 (8.5-10.1) mg/dL Magnesium 2.0 (1.8-2.4) mg/dl Total Bilirubin 0.5 (0.2-1.0) mg/dL AST 15 (15-37) U/L ALT 25 (16-63) U/L Alkaline Phosphatase 61 (46-116) U/L C-Reactive Protein < 0.2 (<1.0) mg/dL Total Protein 5.8 L (6.4-8.2) g/dl Albumin 2.9 L (3.4-5.0) g/dl Globulin 2.9 gm/dL Albumin/Globulin Ratio 1.0 (1-2) Med Orders - Current: Current Medications Acetaminophen (Tylenol) 650 mg PO Q4H PRN PRN Reason: Pain (Mild 1-3)/fever Aspirin (Halfprin) 81 mg PO DAILY [facility] Last Admin: 01/25/19 10:57 Dose: 81 mg Carvedilol (Coreg) 12.5 mg PO BIDMEALS [facility] Last Admin: 01/26/19 06:18 Dose: 12.5 mg Furosemide (Lasix) 40 mg PO DAILY [facility] Guaifenesin (Mucinex) 600 mg PO TID [facility] Last Admin: 01/25/19 20:42 Dose: 600 mg Ipratropium [place] (Atrovent) 0.5 mg NEB Q6HRRT [facility] Last Admin: 01/26/19 02:30 Dose: 0.5 mg Lisinopril (Prinivil) 20 mg PO DAILY [facility] Last Admin: 01/25/19 10:55 Dose: 20 mg Methylprednisolone (Medrol) 24 mg PO WITHBREAKFAST ONE Stop: 01/26/19 07:01 Last Admin: 01/26/19 06:18 Dose: 24 mg Ondansetron HCl (Zofran) 4 mg IV Q4H PRN PRN Reason: Nausea/Vomiting Sodium Chloride (Saline Flush) 10 ml FLUSH ASDIRECTED PRN PRN Reason: Keep Vein Open Discontinued Medications Albuterol (Proventil Neb Soln) 2.5 mg NEB Q2H PRN PRN Reason: Shortness Of Breath/wheezing Last Admin: 01/23/19 18:42 Dose: 2.5 mg Albuterol/Ipratropium (Duoneb 3.0-0.5 Mg/3 Ml) 3 ml NEB ONETIME ONE Stop: 01/22/19 17:13 Last Admin: 01/22/19 18:27 Dose: 3 ml Albuterol/Ipratropium (Duoneb 3.0-0.5 Mg/3 Ml) 3 ml NEB Q6HRRT [facility] Last Admin: 01/23/19 14:26 Dose: 3 ml Amoxicillin/Clavulanate Potassium (Augmentin 875 Mg/125 Mg) 1 tab PO Q12HR [facility] Stop: 01/27/19 09:01 Last Admin: 01/25/19 11:23 Dose: Not Given Aspirin (Halfprin) 81 mg PO DAILY [facility] Last Admin: 01/24/19 09:47 Dose: 81 mg Azithromycin (Zithromax) 250 mg PO DAILY [facility] Stop: 01/26/19 09:01 Last Admin: 01/25/19 12:28 Dose: Not Given Enoxaparin Sodium (Lovenox) 40 mg SUBCUT DAILY [facility] Last Admin: 01/23/19 10:08 Dose: Not Given Furosemide (Lasix) 20 mg PO DAILY [facility] Last Admin: 01/24/19 09:47 Dose: 20 mg Furosemide (Lasix) 20 mg IVPUSH NOW ONE Stop: 01/23/19 21:08 Last Admin: 01/23/19 21:26 Dose: 20 mg Furosemide (Lasix) 20 mg IVPUSH NOW ONE Stop: 01/24/19 15:03 Last Admin: 01/24/19 15:58 Dose: 20 mg Furosemide (Lasix) 20 mg IVPUSH DAILY [facility] Last Admin: 01/25/19 11:18 Dose: Not Given Furosemide (Lasix) 40 mg IVPUSH NOW ONE Stop: 01/25/19 10:46 Last Admin: 01/25/19 11:12 Dose: 40 mg Furosemide (Lasix) 40 mg IVPUSH ONETIME ONE Stop: 01/25/19 17:01 Last Admin: 01/25/19 16:53 Dose: 40 mg Azithromycin 500 mg/ Sodium (Chloride) 250 mls @ 250 mls/hr IV ONETIME ONE Stop: 01/22/19 22:59 Last Admin: 01/22/19 22:13 Dose: 250 mls/hr Levalbuterol HCl (Xopenex) 1.25 mg NEB Q6HRRT [facility] Last Admin: 01/24/19 02:03 Dose: 1.25 mg Levalbuterol HCl (Xopenex) 1.25 mg NEB Q2H PRN PRN Reason: Shortness of Breath Levalbuterol HCl (Xopenex) 1.25 mg NEB Q6HRRT [facility] Last Admin: 01/25/19 08:23 Dose: 1.25 mg Lisinopril (Prinivil) 20 mg PO DAILY [facility] Last Admin: 01/24/19 09:47 Dose: 20 mg Lorazepam (Ativan) Confirm Administered Dose 2 mg .ROUTE .STK-MED ONE Stop: 01/23/19 19:18 Last Admin: 01/23/19 20:47 Dose: 0.5 mg Lorazepam (Ativan) 0.5 mg PO Q4H PRN PRN Reason: Anxiety Methylprednisolone (Medrol) 8 mg PO WITHBREAKFAST ONE Stop: 01/26/19 06:01 Methylprednisolone Sodium Succinate (Solu-Medrol) 125 mg IVPUSH ONETIME ONE Stop: 01/23/19 19:30 Last Admin: 01/23/19 21:26 Dose: 125 mg Methylprednisolone Sodium Succinate (Solu-Medrol) 60 mg IVPUSH ONETIME ONE Stop: 01/24/19 15:02 Last Admin: 01/24/19 15:58 Dose: 60 mg Methylprednisolone Sodium Succinate (Solu-Medrol) 60 mg IVPUSH DAILY [facility] Last Admin: 01/25/19 10:54 Dose: 60 mg Metoprolol Tartrate (Lopressor) 100 mg PO Q12HR [facility] Last Admin: 01/24/19 09:44 Dose: 100 mg Nf Med 1 Each ( Carvedilol 25 Mg) * Pt Own Med 25 mg PO BIDMEALS [facility] Nf Medication 1 Each (Carvedilol 25 Mg)* Pt Own Med 0 mg PO BIDMEALS [facility] Last Admin: 01/23/19 17:24 Dose: 25 mg Potassium Chloride (Klor-Con M20) 20 meq PO ONETIME ONE Stop: 01/22/19 21:46 Last Admin: 01/22/19 22:13 Dose: 20 meq Prednisone (Prednisone) 40 mg PO ONETIME ONE Stop: 01/22/19 17:13 Last Admin: 01/22/19 17:57 Dose: 40 mg Prednisone (Prednisone) 40 mg PO ONETIME ONE Stop: 01/23/19 12:16 Last Admin: 01/23/19 12:52 Dose: 40 mg Prednisone (Prednisone) 40 mg PO WITHBREAKFAST [facility] Last Admin: 01/24/19 06:35 Dose: 40 mg - Exam Quality Assessment: Reports: Supplemental Oxygen (1L ), DVT Prophylaxis General: Reports: Alert, Oriented, Cooperative, No Acute Distress HEENT: Reports: Pupils Equal, Pupils Reactive, EOMI, Mucous Membr. Moist/[place] Neck: Reports: Supple, Trachea Midline Lungs: Reports: Normal Respiratory Effort, Decreased Breath Sounds (especially in bases ), Wheezing (Mild generalized ). Denies: Rhonchi Cardiovascular: Reports: Regular Rate, Regular Rhythm GI/Abdominal Exam: Normal Bowel Sounds, Soft, Non-Tender, No Distention, No Abnormal Bruit (Male) Exam: Deferred Rectal (Males) Exam: Deferred Back Exam: Reports: Normal Inspection, Full Range of Motion Extremities: Normal Inspection, Normal Range of Motion, Non-Tender, No Pedal Edema, Normal Capillary Refill Skin: Reports: Warm, Dry, Intact Neurological: Reports: No New Focal Deficit Psy/Mental Status: Reports: Alert, Normal Affect, Normal Mood
[2019-01-26] MEDS: Lisinopril 20 MG Tab PO SCH (07:59)
[2019-01-26] MEDS: Aspirin 81 MG Tab.EC PO SCH (07:59)
[2019-01-26] MEDS: guaiFENesin 600 MG Tab.ER PO SCH (08:00)
[2019-01-26] MEDS ORDERED: Furosemide 40 MG Tab PO SCH (09:00)
== END 2019-01-26 09:14 | disposition home or self-care (01) | DRG 190 ==
LOC: JD.ED 13:59 → JD.MS 16:44 → OBSVTOIN 01-24 08:58
PROVIDERS: ADMIT Family Medicine; ATTEND Internal Medicine
DX: J43.9 Emphysema, unspecified (principal); I50.23 Acute on chronic systolic (congestive) heart failure; E87.3 Alkalosis; J98.11 Atelectasis; I11.0 Hypertensive heart disease with heart failure; F41.9 Anxiety disorder, unspecified; R09.02 Hypoxemia; I44.7 Left bundle-branch block, unspecified; E87.6 Hypokalemia; Z79.82 Long term (current) use of aspirin; Z79.899 Other long term (current) drug therapy; Z87.891 Personal history of nicotine dependence
CPT/HCPCS: 36415; 36600; 71045; 71045-26; 71046; 71046-26; 80053; 82803; 83735; 83880; 84484; 85007; 85025; 85027; 85379; 85610; 85730; 86140; 93005; 93010; 94640; 94667; 94668; 94761; 96365; 96375; 99285; 99285-25; A9270-GY; G0378; J0456; J1940; J2060; J2920; J2930; J7050; J7612-GY; J7620-GY

== ENCOUNTER 2020-10-24 04:03 | Inpatient (IN) | payer MEDICARE, MEDICAID ==
[2020-10-24] MEDS ORDERED: Albuterol/Ipratropium 3.0-0.5 MG/3 ML Neb Soln NEB ONE (04:19)
--- NOTE | 2020-10-24 04:25 | EDM.PDOC ---
ED HPI GENERAL MEDICAL PROBLEM - General Chief Complaint: Respiratory Problem Stated Complaint: [facility] Time Seen by Provider: 10/24/20 04:04 Source of Information: Reports: Patient, Significant Other (Girlfriend) History Limitations: Reports: Physical Impairment (Conversational dyspnea) - History of Present Illness INITIAL COMMENTS - FREE TEXT/NARRATIVE: Mr. Jackson is a very pleasant 65-year-old gentleman who is now brought to the ED by EMS after developing worsening of his chronic dyspnea, cough, and wheezing around 01:00 to 02:00 this morning. He states that his cough is productive of a clear or white sputum. He states that he is orthopneic. He states that he took 2 puffs of his albuterol MDI at home, without improvement of his symptoms, however, he acknowledges that he does not own a space chamber. EMS gave the patient a single albuterol neb, which he also reports did not help with his symptoms. No recent fever, chest pain, or palpitations. He states that he has had similar exacerbations of his chronic dyspnea numerous times in the past, but does not recall what the diagnosis was. Here in the ED, the patient is found to be tachycardic at 137 bpm and tachypneic at 31 rpm. He is otherwise hemodynamically stable, afebrile, saturating 100% on 2 L of oxygen per nasal cannula. The patient states that he ordinarily takes 1 L of oxygen per nasal cannula; when his oxygen was turned down to 1 L, his oxygen saturation dropped to 90%. The patient has conversational dyspnea. Prior to this morning, the patient denies having a recent fever, chills, sore throat, ear pain, nasal or sinus congestion, chest pain, palpitations, nausea, vomiting, constipation, diarrhea, abdominal pain, urinary symptoms, recent weight gain or weight loss, recent bloody bowel movements or black bowel movements, recent joint aches, headaches, or rashes. The patient HAS NOT received a coronavirus vaccination. The patient's PCP is SUBHA Mina. His Metal Or Wood Blocker is Dr. Clari Rogers. His Tune Up Mechanic is Dr. Arsenio Littlejohn. - Related Data Allergies Allergy/AdvReac Type Severity Reaction Status Date / Time No Known Allergies Allergy Verified 10/24/20 04:19 Home Meds: Home Meds Albuterol [Ventolin HFA] 2 puff INH Q4H PRN 10/22/18 [History] Lisinopril 20 mg PO DAILY 10/22/18 [History] carvediloL [Carvedilol] 25 mg PO BIDMEALS 10/22/18 [History] Aspirin 81 mg PO DAILY 11/05/18 [History] Budesonide/Formoterol Fumarate [Symbicort 80-4.5 MCG] 1 puff IH BID #4 inhaler 11/06/18 [Rx] Furosemide [Lasix] 40 mg PO DAILY #20 tablet 01/26/19 [Rx] Ipratropium [Atrovent] 0.5 mg NEB Q8HR 3 Days #9 neb 01/26/19 [Rx] Roflumilast [Daliresp] 500 mcg PO DAILY 10/24/20 [History] Spironolactone [Aldactone] 25 mg PO DAILY 10/24/20 [History] Past Medical History Cardiovascular History: Reports: Heart Failure (LVEF 25% 02/16/2020), Hypertension Respiratory History: Reports: COPD (PFT-proven) - Infectious Disease History Infectious Disease History: Reports: Chicken Pox, Measles - Past Surgical History Male Surgical History: Reports: Circumcision Social & Family History - Tobacco Use Tobacco Use Status *Q: Current Every Day Tobacco User Years of Tobacco use: 52 Packs/Tins Daily: 0.3 Packs/Tins Daily Comment: Down from >1 ppd Tobacco Use Comment: Started smoking 1968 - Caffeine Use Caffeine Use: Reports: Soda Other Caffeine Use: 6-8 cans daily - Alcohol Use Alcohol Use History: No - Recreational Drug Use Recreational Drug Use: Yes Drug Use in Last 12 Months: No Recreational Drug Type: Reports: Marijuana/Hashish (last smoked 2015) - Living Situation & Occupation Living situation: Reports: Single, with Significant Other (Girlfriend) Occupation: Unemployed ED ROS GENERAL - Review of Systems Review Of Systems: Comprehensive ROS is negative, except as noted in HPI. ED EXAM, GENERAL - Physical Exam Exam: See Below Exam Limited By: No Limitations General Appearance: Alert, Moderate Distress (respiratory dyspnea), Thin Ears: Normal External Exam, Normal Canal, Hearing Grossly Normal, Normal TMs Ear Exam: Bilateral Ear: Auricle Normal, Canal Normal, TM normal Nose: Normal Inspection, Normal Mucosa, No Blood Throat/Mouth: Normal Inspection, Normal Lips, Normal Teeth, Normal Gums, Normal Oropharynx, Normal Voice, No Airway Compromise Head: Atraumatic, Normocephalic Neck: Normal Inspection, Supple, Non-Tender, Full Range of Motion Respiratory/Chest: No Respiratory Distress, Lungs Clear, Normal Breath Sounds, No Accessory Muscle Use, Chest Non-Tender Cardiovascular: Normal Peripheral Pulses, Regular Rate, Rhythm, No Edema, No Gallop, No JVD, No Murmur, No Rub GI/Abdominal: Normal Bowel Sounds, Soft, Non-Tender, No Organomegaly, No Distention, No Abnormal Bruit, No Mass (Male) Exam: No Hernia, Normal Inspection, Normal Prostate, Circumcised Rectal (Males) Exam: Normal Exam, Normal Rectal Tone, Prostate Normal Back Exam: Normal Inspection, Full Range of Motion, NT Extremities: Normal Inspection, Normal Range of Motion, Non-Tender, Normal Capillary Refill, No Pedal Edema Neurological: Alert, Oriented, CN II-XII Intact, Normal Cognition, Normal Gait, Normal Reflexes, No Motor/Sensory Deficits Psychiatric: Normal Affect, Normal Mood Skin Exam: Warm, Dry, Intact, Normal Color, No Rash Lymphatic: No Adenopathy #1 Interpretation EKG Date: 10/24/20 Time: 04:14 Rhythm: Other (Sinus tachycardia) Rate (Beats/Min): 132 P-Wave: Enlarged (biatrial) QRS: LBBB Comparison: No Change (01/23/2019) Course - Vital Signs Last Recorded V/S: Last Vital Signs Temp 36.1 C 10/24/20 04:04 Pulse 97 10/24/20 06:30 Resp 20 10/24/20 06:30 BP 124/91 H 10/24/20 06:30 Pulse Ox 94 L 10/24/20 06:30 - Orders/Labs/Meds Orders: Active Orders 24 hr Category Date Time Status BIPAP Adult [RT BiPAP/CPAP] [RC] ASDIRECTED Care 10/24/20 04:44 Active EKG Documentation Completion [RC] STAT Care 10/24/20 04:19 Active RT Aerosol Therapy [RC] ASDIRECTED Care 10/24/20 04:19 Active Ang Chest [CT] Stat Exams 10/24/20 05:18 Ordered Chest 1V Frontal [CR] Stat Exams 10/24/20 04:19 Taken BLOOD GAS ARTERIAL [BG] Stat Lab 10/24/20 06:27 Ordered CULTURE BLOOD [BC] Stat Lab 10/24/20 04:19 Ordered CULTURE BLOOD [BC] Stat Lab 10/24/20 04:19 Ordered LACTATE SEPSIS W/ REFLEX [CHEM] Stat Lab 10/24/20 07:00 Ordered Sodium Chloride 0.9% [Normal Saline] 1,000 ml Med 10/24/20 05:30 Active IV ASDIRECTED Blood Culture x2 Reflex Set [OM.PC] Stat Oth 10/24/20 04:19 Ordered Medication Orders Sodium Chloride (Normal Saline) 1,000 mls @ 100 mls/hr IV ASDIRECTED KRYSTA Last Admin: 10/24/20 05:24 Dose: 100 mls/hr Documented by: GISELLE Labs: Laboratory Tests 10/24/20 10/24/20 10/24/20 Range/Units 04:08 04:08 04:08 WBC 11.90 H (4.23-9.07) K/mm3 RBC 5.42 (4.63-6.08) M/mm3 Hgb 15.4 (13.7-17.5) gm/dl Hct 49.4 (40.1-51.0) % MCV 91.1 (79.0-92.2) fl MCH 28.4 (25.7-32.2) pg MCHC 31.2 L (32.2-35.5) g/dl RDW Std Deviation 46.1 H (35.1-43.9) fL Plt Count 275 (163-337) K/mm3 MPV 10.1 (9.4-12.3) fl Neutrophils % (Manual) 52 (40-60) % Band Neutrophils % 0 (0-10) % Lymphocytes % (Manual) 41 H (20-40) % Atypical Lymphs % 0 % Monocytes % (Manual) 6 (2-10) % Eosinophils % (Manual) 1 (0.8-7.0) % Basophils % (Manual) 0 L (0.2-1.2) Platelet Estimate Adequate RBC Morph Comment Normal D-Dimer, Quantitative (0.19-0.50) mg/L Puncture Site ABG pH (7.35-7.45) ABG pCO2 (35.0-45.0) mmHg ABG pO2 (80.0-100.0) mmHg ABG HCO3 (22.0-26.0) meq/L ABG O2 Saturation (96.0-97.0) % ABG Base Excess (-2-2.0) A-a Gradient mmHg O2 Delivery Device Oxygen Flow Rate FiO2 (21.00-100.00) % Sodium 144 (136-145) mEq/L Potassium 4.1 (3.5-5.1) mEq/L Chloride 105 (98-107) mEq/L Carbon Dioxide 31 (21-32) mEq/L Anion Gap 12.1 (5-15) BUN 10 (7-18) mg/dL Creatinine 1.2 (0.7-1.3) mg/dL Est Cr Clr Drug Dosing 50.50 mL/min Estimated GFR (MDRD) > 60 (>60) mL/min BUN/Creatinine Ratio 8.3 L (14-18) Glucose 263 H (70-99) mg/dL Lactic Acid (0.4-2.0) mmol/L Calcium 8.7 (8.5-10.1) mg/dL Total Bilirubin 0.5 (0.2-1.0) mg/dL AST 25 (15-37) U/L ALT 18 (16-63) U/L Alkaline Phosphatase 62 (46-116) U/L Troponin I 0.033 (0.00-0.056) ng/mL NT-Pro-B Natriuret Pep 5377 H (0-125) pg/mL Total Protein 7.2 (6.4-8.2) g/dl Albumin 3.6 (3.4-5.0) g/dl Globulin 3.6 gm/dL Albumin/Globulin Ratio 1.0 (1-2) SARS-CoV-2 RNA (JAMSE) (NEGATIVE) 10/24/20 10/24/20 10/24/20 Range/Units 04:08 04:33 04:37 WBC (4.23-9.07) K/mm3 RBC (4.63-6.08) M/mm3 Hgb (13.7-17.5) gm/dl Hct (40.1-51.0) % MCV (79.0-92.2) fl MCH (25.7-32.2) pg MCHC (32.2-35.5) g/dl RDW Std Deviation (35.1-43.9) fL Plt Count (163-337) K/mm3 MPV (9.4-12.3) fl Neutrophils % (Manual) (40-60) % Band Neutrophils % (0-10) % Lymphocytes % (Manual) (20-40) % Atypical Lymphs % % Monocytes % (Manual) (2-10) % Eosinophils % (Manual) (0.8-7.0) % Basophils % (Manual) (0.2-1.2) Platelet Estimate RBC Morph Comment D-Dimer, Quantitative 1.58 H (0.19-0.50) mg/L Puncture Site Lt radial ABG pH 7.21 L (7.35-7.45) ABG pCO2 75.7 H* (35.0-45.0) mmHg ABG pO2 54.0 L (80.0-100.0) mmHg ABG HCO3 29 H (22.0-26.0) meq/L ABG O2 Saturation 77.8 L (96.0-97.0) % ABG Base Excess -1.1 (-2-2.0) A-a Gradient 51 mmHg O2 Delivery Device Nasal cannula Oxygen Flow Rate 2.0 FiO2 28.00 (21.00-100.00) % Sodium (136-145) mEq/L Potassium (3.5-5.1) mEq/L Chloride (98-107) mEq/L Carbon Dioxide (21-32) mEq/L Anion Gap (5-15) BUN (7-18) mg/dL Creatinine (0.7-1.3) mg/dL Est Cr Clr Drug Dosing mL/min Estimated GFR (MDRD) (>60) mL/min BUN/Creatinine Ratio (14-18) Glucose (70-99) mg/dL Lactic Acid 3.1 H* (0.4-2.0) mmol/L Calcium (8.5-10.1) mg/dL Total Bilirubin (0.2-1.0) mg/dL AST (15-37) U/L ALT (16-63) U/L Alkaline Phosphatase (46-116) U/L Troponin I (0.00-0.056) ng/mL NT-Pro-B Natriuret Pep (0-125) pg/mL Total Protein (6.4-8.2) g/dl Albumin (3.4-5.0) g/dl Globulin gm/dL Albumin/Globulin Ratio (1-2) SARS-CoV-2 RNA (JAMES) (NEGATIVE) 10/24/20 Range/Units 04:41 WBC (4.23-9.07) K/mm3 RBC (4.63-6.08) M/mm3 Hgb (13.7-17.5) gm/dl Hct (40.1-51.0) % MCV (79.0-92.2) fl MCH (25.7-32.2) pg MCHC (32.2-35.5) g/dl RDW Std Deviation (35.1-43.9) fL Plt Count (163-337) K/mm3 MPV (9.4-12.3) fl Neutrophils % (Manual) (40-60) % Band Neutrophils % (0-10) % Lymphocytes % (Manual) (20-40) % Atypical Lymphs % % Monocytes % (Manual) (2-10) % Eosinophils % (Manual) (0.8-7.0) % Basophils % (Manual) (0.2-1.2) Platelet Estimate RBC Morph Comment D-Dimer, Quantitative (0.19-0.50) mg/L Puncture Site ABG pH (7.35-7.45) ABG pCO2 (35.0-45.0) mmHg ABG pO2 (80.0-100.0) mmHg ABG HCO3 (22.0-26.0) meq/L ABG O2 Saturation (96.0-97.0) % ABG Base Excess (-2-2.0) A-a Gradient mmHg O2 Delivery Device Oxygen Flow Rate FiO2 (21.00-100.00) % Sodium (136-145) mEq/L Potassium (3.5-5.1) mEq/L Chloride (98-107) mEq/L Carbon Dioxide (21-32) mEq/L Anion Gap (5-15) BUN (7-18) mg/dL Creatinine (0.7-1.3) mg/dL Est Cr Clr Drug Dosing mL/min Estimated GFR (MDRD) (>60) mL/min BUN/Creatinine Ratio (14-18) Glucose (70-99) mg/dL Lactic Acid (0.4-2.0) mmol/L Calcium (8.5-10.1) mg/dL Total Bilirubin (0.2-1.0) mg/dL AST (15-37) U/L ALT (16-63) U/L Alkaline Phosphatase (46-116) U/L Troponin I (0.00-0.056) ng/mL NT-Pro-B Natriuret Pep (0-125) pg/mL Total Protein (6.4-8.2) g/dl Albumin (3.4-5.0) g/dl Globulin gm/dL Albumin/Globulin Ratio (1-2) SARS-CoV-2 RNA (JAMES) Negative (NEGATIVE) Meds: Medications Generic Name Dose Route Start Last Admin Trade Name Freq PRN Reason Stop Dose Admin Sodium Chloride 1,000 mls @ 100 mls/hr 10/24/20 05:30 10/24/20 05:24 Normal Saline IV 100 mls/hr ASDIRECTED KRYSTA Administration Discontinued Medications Generic Name Dose Route Start Last Admin Trade Name Freq PRN Reason Stop Dose Admin Albuterol/Ipratropium 3 ml 10/24/20 04:19 10/24/20 04:25 Albuterol/Ipratropium 3.0-0.5 Mg/3 Ml Neb Soln NEB 10/24/20 04:20 3 ml ONETIME ONE Administration Methylprednisolone Sodium Succinate 125 mg 10/24/20 05:32 10/24/20 05:36 Methylprednisolone Sodium Succinate 125 Mg/2 Ml Sdv IVPUSH 10/24/20 05:33 125 mg ONETIME ONE Administration Methylprednisolone Sodium Succinate Confirm 10/24/20 05:34 10/24/20 05:43 Methylprednisolone Sodium Succinate 125 Mg/2 Ml Sdv Administered 10/24/20 05:35 Not Given Dose 125 mg .ROUTE .STK-MED ONE Prednisone 40 mg 10/24/20 05:09 10/24/20 06:01 Prednisone 20 Mg Tab PO 10/24/20 05:10 Not Given ONETIME STA - Re-Assessments/Exams Free Text/Narrative Re-Assessment/Exam: 10/24/20 04:22 As above, the patient developed [id number] dyspnea with worsening of his chronic cough and wheezing around 01:00 this morning. He took 2 puffs of his albuterol MDI without improvement, however, the patient does not own a spacer chamber. He was given an albuterol neb per EMS en route to the ED. Here in the ED, the patient appears to be quite dyspneic, limiting his ability to converse. He is diaphoretic. An ECG, obtained at triage, demonstrates sinus tachycardia with a chronic left bundle branch block. His breath sounds are distant, and there are likely expiratory wheezes with a prolonged expiratory phase. Although the patient reports orthopnea, no crackles are heard at the bases. I suspect the patient is suffering from a COPD exacerbation. I have ordered a work-up that includes numerous blood tests, 2 sets of blood cultures, an ABG, a swab for the SARS-CoV-2 virus, and a portable chest x-ray. In the meantime, the patient will be given a DuoNeb. After the ABG is drawn, I will likely place the patient on BiPAP. 10/24/20 04:46 The patient's ABG appears to be a mixed venous sample, however, it nevertheless demonstrates an acute respiratory acidosis. I have therefore ordered BiPAP / with supplemental O2. 10/24/20 04:52 Portable chest radiograph reviewed. The cardiac silhouette is within normal limits. No pulmonary vascular congestion. No pleural effusions seen on this AP view. No focal infiltrate. No pneumothorax. There is hyperinflation and bilateral diaphragmatic flattening, consistent with COPD. Formal read per the Radiologist pending. 10/24/20 05:19 The patient's CBC is remarkable for mild leukocytosis of 11.90, but with 0% bandemia, and the remainder of his CBC being unremarkable. His CMP is remarkable for hyperglycemia of 263, with remainder of his CMP being unremarkable. His lactic acid level is elevated at 3.1. His troponin is within normal limits at 0.033. His pro-BNP is elevated at 5377. His D-dimer is elevated at 1.58. His swab for the SARS-CoV-2 virus has not yet resulted. Based on the above, I have ordered a CT angiogram of the chest to evaluate for a PE, along with judicious IV fluid. 10/24/20 06:23 The patient's swab for the SARS-CoV-2 virus has returned negative. The patient appears to be comfortable on BiPAP. He appears to be napping. His tidal volume is 450 to 485 ml. He was unable to tolerate lying supine, therefore the CTA/chest will need to be postponed. Because of the patient's history of CHF, the IV fluid was held. Because it was so difficult to get the BiPAP mask to fit properly, the oral prednisone that I had ordered was switched to IV Solu-Medrol. 10/24/20 06:[address] Howard, Hospitalist, at 06:26. He has accepted the patient for admission to the medical floor. We will repeat another ABG now. He will come by the ED to evaluate the patient shortly. 10/24/20 06:38 Departure - Departure Time of Disposition: 06:29 Disposition: Admitted As Inpatient 65 Condition: Good Clinical Impression: COPD exacerbation, Hyperglycemia due to type 2 diabetes mellitus - Discharge Information *PRESCRIPTION DRUG MONITORING PROGRAM REVIEWED*: Not Applicable *COPY OF PRESCRIPTION DRUG MONITORING REPORT IN PATIENT LIBBY: Not Applicable Referrals: Ana Funes PA-C [Primary Care Provider] - Arsenio Littlejohn MD [Ordering Only Provider] - Clari Rogers MD [Ordering Only Provider] - Forms: ED Department Discharge Sepsis Event Note (ED) - Evaluation Sepsis Screening Result: No Definite Risk - Focused Exam Vital Signs: Vital Signs Temp Pulse Resp BP Pulse Ox Pulse Ox Pulse Ox 10/24/20 06:30 97 20 124/91 H 94 L 10/24/20 06:24 95 10/24/20 05:44 105 H 24 H 127/78 94 L 10/24/20 05:09 111 H 24 H 161/98 H 92 L 10/24/20 04:27 90 L 10/24/20 04:04 36.1 C 137 H 31 H 194/125 H 100 - My Orders Last 24 Hours: My Active Orders 10/24/20 04:19 EKG Documentation Completion [RC] STAT RT Aerosol Therapy [RC] ASDIRECTED Chest 1V Frontal [CR] Stat CULTURE BLOOD [BC] Stat CULTURE BLOOD [BC] Stat Blood Culture x2 Reflex Set [OM.PC] Stat 10/24/20 04:44 BIPAP Adult [RT BiPAP/CPAP] [RC] ASDIRECTED 10/24/20 05:18 Ang Chest [CT] Stat 10/24/20 05:30 Sodium Chloride 0.9% [Normal Saline] 1,000 ml IV ASDIRECTED 10/24/20 06:27 BLOOD GAS ARTERIAL [BG] Stat 10/24/20 07:00 LACTATE SEPSIS W/ REFLEX [CHEM] Stat - Assessment/Plan Last 24 Hours: My Active Orders 10/24/20 04:19 EKG Documentation Completion [RC] STAT RT Aerosol Therapy [RC] ASDIRECTED Chest 1V Frontal [CR] Stat CULTURE BLOOD [BC] Stat CULTURE BLOOD [BC] Stat Blood Culture x2 Reflex Set [OM.PC] Stat 10/24/20 04:44 BIPAP Adult [RT BiPAP/CPAP] [RC] ASDIRECTED 10/24/20 05:18 Ang Chest [CT] Stat 10/24/20 05:30 Sodium Chloride 0.9% [Normal Saline] 1,000 ml IV ASDIRECTED 10/24/20 06:27 BLOOD GAS ARTERIAL [BG] Stat 10/24/20 07:00 LACTATE SEPSIS W/ REFLEX [CHEM] Stat
[2020-10-24] MEDS ORDERED: predniSONE 20 MG Tab PO STA (05:09)
[2020-10-24] MEDS: Sodium Chloride 0.9% 1,000 ML IV SCH ×2 (05:24→18:38)
[2020-10-24] MEDS ORDERED: methylPREDNISolone Sodium Succinate 125 MG/2 ML SDV IVPUSH ONE (05:32)
[2020-10-24] MEDS ORDERED: methylPREDNISolone Sodium Succinate 125 MG/2 ML SDV ONE (05:34)
[2020-10-24] MEDS ORDERED: Docusate Sodium 100 MG Cap PO PRN (07:15)
[2020-10-24] MEDS ORDERED: Ondansetron 4 MG Tab.DIS PO PRN (07:15)
[2020-10-24] MEDS ORDERED: Sodium Chloride 0.9% 10 ML Syringe FLUSH PRN ×2 (07:15→10:48)
[2020-10-24] MEDS ORDERED: Polyethylene Glycol 3350 Powder 17 GM Packet PO PRN (07:15)
[2020-10-24] MEDS ORDERED: Albuterol/Ipratropium 3.0-0.5 MG/3 ML Neb Soln NEB SCH (07:15)
[2020-10-24] MEDS ORDERED: Ondansetron 4 MG/2 ML SDV IV PRN (07:15)
[2020-10-24] MEDS ORDERED: Acetaminophen 325 MG Tab PO PRN (07:15)
[2020-10-24] MEDS ORDERED: Albuterol/Ipratropium 3.0-0.5 MG/3 ML Neb Soln NEB PRN (07:16)
[2020-10-24 07:42] LABS: HEMOGLOBIN A1C 5.8 %
--- NOTE | 2020-10-24 07:53 | PCM.HP.2 ---
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 The patient was in his usual state of health yesterday morning and went about his day as usual. Starting into the evening hours he began feeling short of breath. He was able to complete nighttime chores and able to go to bed. He woke up in the middle the night gasping for air feeling as if he was drowning. He denied any chest pain, chest pressure or pleurisy. He denies any recent fever or sick contacts. No recent travel. No occupational exposures to hazardous materials or pets. He has a chronic cough with sputum production however no change in sputum color. No evidence of hemoptysis. He presented in acute distress requiring emergent BiPAP. Blood gas was notable for acute respiratory acidosis and a pH of 7.21 with a PCO2 in the 70s. He was hypoxemic. Patient placed on essentially CPAP settings of 10/5 and taking in good volumes. Patient reversed his blood gases within 2 hours. Current pH is 7.38 with a PCO2 in the low 50s. Patient states that he feels a lot better in comparison to when he came in. He has a complaint of a headache due to the tightness of the mask. He otherwise has no complaints. Patient was referred to the internal medicine service for further management. The patient was given DuoNeb's and Solu-Medrol in the emergency department before being referred. A 14 point review of systems was reviewed with the patient entirely and only pertinent for the above information. CODE STATUS: Full code. - Related Data Allergies/Adverse Reactions: Allergies Allergy/AdvReac Type Severity Reaction Status Date / Time No Known Allergies Allergy Verified 10/24/20 04:19 Home Medications: Home Meds Albuterol [Ventolin HFA] 2 puff INH Q4H PRN 10/22/18 [History] Lisinopril 20 mg PO DAILY 10/22/18 [History] carvediloL [Carvedilol] 25 mg PO BIDMEALS 10/22/18 [History] Aspirin 81 mg PO DAILY 11/05/18 [History] Budesonide/Formoterol Fumarate [Symbicort 80-4.5 MCG] 1 puff IH BID #4 inhaler 11/06/18 [Rx] Furosemide [Lasix] 40 mg PO DAILY #20 tablet 01/26/19 [Rx] Ipratropium [Atrovent] 0.5 mg NEB Q8HR 3 Days #9 neb 01/26/19 [Rx] Roflumilast [Daliresp] 500 mcg PO DAILY 10/24/20 [History] Spironolactone [Aldactone] 25 mg PO DAILY 10/24/20 [History] Past Medical History HEENT History: Reports: None Cardiovascular History: Reports: Heart Failure (LVEF 25% 02/16/2020), Hypertension Respiratory History: Reports: COPD Other Respiratory History: emphysema Gastrointestinal History: Reports: None Genitourinary History: Reports: None Musculoskeletal History: Reports: None Neurological History: Reports: None Psychiatric History: Reports: None Endocrine/Metabolic History: Reports: None Hematologic History: Reports: None Immunologic History: Reports: None Oncologic (Cancer) History: Reports: None Dermatologic History: Reports: None - Infectious Disease History Infectious Disease History: Reports: Chicken Pox, Measles - Past Surgical History Head Surgeries/Procedures: Reports: None HEENT Surgical History: Reports: None Male Surgical History: Reports: Circumcision Neurological Surgical History: Reports: None Musculoskeletal Surgical History: Reports: None Oncologic Surgical History: Reports: None Dermatological Surgical History: Reports: None Social & Family History - Family History Family Medical History: No Pertinent Family History - Tobacco Use Tobacco Use Status *Q: Current Some Day Tobacco User Years of Tobacco use: 52 Packs/Tins Daily: 1 Used Tobacco, but Quit: No Tobacco Use Comment: Started smoking 1968 - Caffeine Use Caffeine Use: Reports: Coffee Other Caffeine Use: 6-8 cans daily - Recreational Drug Use Recreational Drug Use: No Drug Use in Last 12 Months: No Recreational Drug Type: Reports: Marijuana/Hashish (last smoked 2015) - Living Situation & Occupation Living situation: Reports: Single, with Significant Other (Girlfriend) Occupation: Unemployed H&P Review of Systems - Review of Systems: Review Of Systems: Comprehensive ROS is negative, except as noted in HPI. Exam - Exam Exam: See Below - Vital Signs Vital Signs: Last Vital Signs Temp 96.9 F 10/24/20 04:04 Pulse 97 10/24/20 06:30 Resp 20 10/24/20 06:30 BP 124/91 H 10/24/20 06:30 Pulse Ox 94 L 10/24/20 06:30 Weight: 130 lb - Exam Quality Assessment: Supplemental Oxygen General: Alert, Oriented HEENT: Conjunctiva Clear, Nares Patent Lungs: Clear to Auscultation, Wheezing. No: Crackles, Rales Cardiovascular: Tachycardia (Sinus tachycardia) GI/Abdominal Exam: Normal Bowel Sounds, Soft, Non-Tender, No Distention Extremities: Normal Inspection, No Pedal Edema Skin: Warm, Dry Neurological: Cranial Nerves Intact - Patient Data Lab Results Last 24 hrs: Laboratory Results - last 24 hr 10/24/20 10/24/20 10/24/20 Range/Units 04:00 04:08 04:08 WBC 11.90 H (4.23-9.07) K/mm3 RBC 5.42 (4.63-6.08) M/mm3 Hgb 15.4 (13.7-17.5) gm/dl Hct 49.4 (40.1-51.0) % MCV 91.1 (79.0-92.2) fl MCH 28.4 (25.7-32.2) pg MCHC 31.2 L (32.2-35.5) g/dl RDW Std Deviation 46.1 H (35.1-43.9) fL Plt Count 275 (163-337) K/mm3 MPV 10.1 (9.4-12.3) fl Neutrophils % (Manual) 52 (40-60) % Band Neutrophils % 0 (0-10) % Lymphocytes % (Manual) 41 H (20-40) % Atypical Lymphs % 0 % Monocytes % (Manual) 6 (2-10) % Eosinophils % (Manual) 1 (0.8-7.0) % Basophils % (Manual) 0 L (0.2-1.2) Platelet Estimate Adequate RBC Morph Comment Normal D-Dimer, Quantitative (0.19-0.50) mg/L Puncture Site ABG pH (7.35-7.45) ABG pCO2 (35.0-45.0) mmHg ABG pO2 (80.0-100.0) mmHg ABG HCO3 (22.0-26.0) meq/L ABG O2 Saturation (96.0-97.0) % ABG Base Excess (-2-2.0) Dante Test A-a Gradient mmHg O2 Delivery Device Oxygen Flow Rate FiO2 (21.00-100.00) % Sodium 144 (136-145) mEq/L Potassium 4.1 (3.5-5.1) mEq/L Chloride 105 (98-107) mEq/L Carbon Dioxide 31 (21-32) mEq/L Anion Gap 12.1 (5-15) BUN 10 (7-18) mg/dL Creatinine 1.2 (0.7-1.3) mg/dL Est Cr Clr Drug Dosing 50.50 mL/min Estimated GFR (MDRD) > 60 (>60) mL/min BUN/Creatinine Ratio 8.3 L (14-18) Glucose 263 H (70-99) mg/dL Hemoglobin A1c 5.8 H ( - 5.6) % Lactic Acid (0.4-2.0) mmol/L Calcium 8.7 (8.5-10.1) mg/dL Total Bilirubin 0.5 (0.2-1.0) mg/dL AST 25 (15-37) U/L ALT 18 (16-63) U/L Alkaline Phosphatase 62 (46-116) U/L Troponin I 0.033 (0.00-0.056) ng/mL NT-Pro-B Natriuret Pep (0-125) pg/mL Total Protein 7.2 (6.4-8.2) g/dl Albumin 3.6 (3.4-5.0) g/dl Globulin 3.6 gm/dL Albumin/Globulin Ratio 1.0 (1-2) SARS-CoV-2 RNA (JAMES) (NEGATIVE) 10/24/20 10/24/20 10/24/20 Range/Units 04:08 04:08 04:33 WBC (4.23-9.07) K/mm3 RBC (4.63-6.08) M/mm3 Hgb (13.7-17.5) gm/dl Hct (40.1-51.0) % MCV (79.0-92.2) fl MCH (25.7-32.2) pg MCHC (32.2-35.5) g/dl RDW Std Deviation (35.1-43.9) fL Plt Count (163-337) K/mm3 MPV (9.4-12.3) fl Neutrophils % (Manual) (40-60) % Band Neutrophils % (0-10) % Lymphocytes % (Manual) (20-40) % Atypical Lymphs % % Monocytes % (Manual) (2-10) % Eosinophils % (Manual) (0.8-7.0) % Basophils % (Manual) (0.2-1.2) Platelet Estimate RBC Morph Comment D-Dimer, Quantitative 1.58 H (0.19-0.50) mg/L Puncture Site ABG pH (7.35-7.45) ABG pCO2 (35.0-45.0) mmHg ABG pO2 (80.0-100.0) mmHg ABG HCO3 (22.0-26.0) meq/L ABG O2 Saturation (96.0-97.0) % ABG Base Excess (-2-2.0) Dante Test A-a Gradient mmHg O2 Delivery Device Oxygen Flow Rate FiO2 (21.00-100.00) % Sodium (136-145) mEq/L Potassium (3.5-5.1) mEq/L Chloride (98-107) mEq/L Carbon Dioxide (21-32) mEq/L Anion Gap (5-15) BUN (7-18) mg/dL Creatinine (0.7-1.3) mg/dL Est Cr Clr Drug Dosing mL/min Estimated GFR (MDRD) (>60) mL/min BUN/Creatinine Ratio (14-18) Glucose (70-99) mg/dL Hemoglobin A1c ( - 5.6) % Lactic Acid 3.1 H* (0.4-2.0) mmol/L Calcium (8.5-10.1) mg/dL Total Bilirubin (0.2-1.0) mg/dL AST (15-37) U/L ALT (16-63) U/L Alkaline Phosphatase (46-116) U/L Troponin I (0.00-0.056) ng/mL NT-Pro-B Natriuret Pep 5377 H (0-125) pg/mL Total Protein (6.4-8.2) g/dl Albumin (3.4-5.0) g/dl Globulin gm/dL Albumin/Globulin Ratio (1-2) SARS-CoV-2 RNA (JAMES) (NEGATIVE) 10/24/20 10/24/20 10/24/20 Range/Units 04:37 04:41 06:38 WBC (4.23-9.07) K/mm3 RBC (4.63-6.08) M/mm3 Hgb (13.7-17.5) gm/dl Hct (40.1-51.0) % MCV (79.0-92.2) fl MCH (25.7-32.2) pg MCHC (32.2-35.5) g/dl RDW Std Deviation (35.1-43.9) fL Plt Count (163-337) K/mm3 MPV (9.4-12.3) fl Neutrophils % (Manual) (40-60) % Band Neutrophils % (0-10) % Lymphocytes % (Manual) (20-40) % Atypical Lymphs % % Monocytes % (Manual) (2-10) % Eosinophils % (Manual) (0.8-7.0) % Basophils % (Manual) (0.2-1.2) Platelet Estimate RBC Morph Comment D-Dimer, Quantitative (0.19-0.50) mg/L Puncture Site Lt radial Rt radial ABG pH 7.21 L 7.38 (7.35-7.45) ABG pCO2 75.7 H* 52.6 H (35.0-45.0) mmHg ABG pO2 54.0 L 47.0 L (80.0-100.0) mmHg ABG HCO3 29 H 30.6 H (22.0-26.0) meq/L ABG O2 Saturation 77.8 L 84.7 L (96.0-97.0) % ABG Base Excess -1.1 4.8 H (-2-2.0) Dante Test Positive A-a Gradient 51 87 mmHg O2 Delivery Device Nasal cannula Bipap Oxygen Flow Rate 2.0 FiO2 28.00 28.00 (21.00-100.00) % Sodium (136-145) mEq/L Potassium (3.5-5.1) mEq/L Chloride (98-107) mEq/L Carbon Dioxide (21-32) mEq/L Anion Gap (5-15) BUN (7-18) mg/dL Creatinine (0.7-1.3) mg/dL Est Cr Clr Drug Dosing mL/min Estimated GFR (MDRD) (>60) mL/min BUN/Creatinine Ratio (14-18) Glucose (70-99) mg/dL Hemoglobin A1c ( - 5.6) % Lactic Acid (0.4-2.0) mmol/L Calcium (8.5-10.1) mg/dL Total Bilirubin (0.2-1.0) mg/dL AST (15-37) U/L ALT (16-63) U/L Alkaline Phosphatase (46-116) U/L Troponin I (0.00-0.056) ng/mL NT-Pro-B Natriuret Pep (0-125) pg/mL Total Protein (6.4-8.2) g/dl Albumin (3.4-5.0) g/dl Globulin gm/dL Albumin/Globulin Ratio (1-2) SARS-CoV-2 RNA (JAMES) Negative (NEGATIVE) 10/24/20 Range/Units 07:00 WBC (4.23-9.07) K/mm3 RBC (4.63-6.08) M/mm3 Hgb (13.7-17.5) gm/dl Hct (40.1-51.0) % MCV (79.0-92.2) fl MCH (25.7-32.2) pg MCHC (32.2-35.5) g/dl RDW Std Deviation (35.1-43.9) fL Plt Count (163-337) K/mm3 MPV (9.4-12.3) fl Neutrophils % (Manual) (40-60) % Band Neutrophils % (0-10) % Lymphocytes % (Manual) (20-40) % Atypical Lymphs % % Monocytes % (Manual) (2-10) % Eosinophils % (Manual) (0.8-7.0) % Basophils % (Manual) (0.2-1.2) Platelet Estimate RBC Morph Comment D-Dimer, Quantitative (0.19-0.50) mg/L Puncture Site ABG pH (7.35-7.45) ABG pCO2 (35.0-45.0) mmHg ABG pO2 (80.0-100.0) mmHg ABG HCO3 (22.0-26.0) meq/L ABG O2 Saturation (96.0-97.0) % ABG Base Excess (-2-2.0) Dante Test A-a Gradient mmHg O2 Delivery Device Oxygen Flow Rate FiO2 (21.00-100.00) % Sodium (136-145) mEq/L Potassium (3.5-5.1) mEq/L Chloride (98-107) mEq/L Carbon Dioxide (21-32) mEq/L Anion Gap (5-15) BUN (7-18) mg/dL Creatinine (0.7-1.3) mg/dL Est Cr Clr Drug Dosing mL/min Estimated GFR (MDRD) (>60) mL/min BUN/Creatinine Ratio (14-18) Glucose (70-99) mg/dL Hemoglobin A1c ( - 5.6) % Lactic Acid 0.7 (0.4-2.0) mmol/L Calcium (8.5-10.1) mg/dL Total Bilirubin (0.2-1.0) mg/dL AST (15-37) U/L ALT (16-63) U/L Alkaline Phosphatase (46-116) U/L Troponin I (0.00-0.056) ng/mL NT-Pro-B Natriuret Pep (0-125) pg/mL Total Protein (6.4-8.2) g/dl Albumin (3.4-5.0) g/dl Globulin gm/dL Albumin/Globulin Ratio (1-2) SARS-CoV-2 RNA (JAMES) (NEGATIVE) Result Diagrams: 10/24/20 04:08 10/24/20 04:08 Imaging Impressions Last 24 hrs: Chest x-ray personally reviewed. Formal reading pending. Large lung volumes. No evidence of infiltrates or effusions. No bony abnormalities. Sepsis Event Note - Evaluation Sepsis Screening Result: No Definite Risk - Focused Exam Vital Signs: Vital Signs Temp Pulse Resp BP Pulse Ox Pulse Ox Pulse Ox 10/24/20 06:30 97 20 124/91 H 94 L 10/24/20 06:24 95 10/24/20 05:44 105 H 24 H 127/78 94 L 10/24/20 05:09 111 H 24 H 161/98 H 92 L 07/15/21 04:27 90 L 10/24/20 04:04 96.9 F 137 H 31 H 194/125 H 100 Problem List Initiated/Reviewed/Updated: Yes Orders Last 24hrs: Active Orders 24 hr Category Date Time Status Patient Status [ADT] Routine ADT 10/24/20 07:11 Active Antiembolic Devices [RC] PER UNIT ROUTINE Care 10/24/20 07:14 Active BIPAP Adult [RT BiPAP/CPAP] [RC] ASDIRECTED Care 10/24/20 04:44 Active Blood Glucose Check, Bedside [RC] QIDACANDBED Care 10/24/20 07:18 Active Cardiac Monitoring [RC] CONTINUOUS Care 10/24/20 07:13 Active EKG Documentation Completion [RC] STAT Care 10/24/20 04:19 Active Oxygen Therapy [RC] PRN Care 10/24/20 07:11 Active Pulse Oximetry [RC] CONTINUOUS Care 10/24/20 07:13 Active RT Aerosol Therapy [RC] ASDIRECTED Care 10/24/20 04:19 Active RT Aerosol Therapy [RC] ASDIRECTED Care 10/24/20 07:15 Active RT Aerosol Therapy [RC] ASDIRECTED Care 10/24/20 07:17 Active Up With Assistance [RC] ASDIRECTED Care 10/24/20 07:11 Active VTE/DVT Education [RC] PER UNIT ROUTINE Care 10/24/20 07:11 Active Vital Signs [RC] Q1HR Care 10/24/20 07:11 Active Respiratory Care Assess and Treatment [CONS] Routine Cons 10/24/20 07:11 Active Consistent Carbohydrate Diet [DIET] Diet 10/24/20 Lunch Active Ang Chest [CT] Stat Exams 10/24/20 05:18 Ordered Chest 1V Frontal [CR] Stat Exams 10/24/20 04:19 Taken BASIC METABOLIC PANEL,BMP [CHEM] AM Lab 10/25/20 05:11 Ordered CBC WITH AUTO DIFF [HEME] AM Lab 10/25/20 05:11 Ordered CULTURE BLOOD [BC] Stat Lab 10/24/20 04:19 Ordered CULTURE BLOOD [BC] Stat Lab 10/24/20 04:19 Ordered Acetaminophen [TylenoL] Med 10/24/20 07:15 Active 650 mg PO Q4H PRN Albuterol/Ipratropium [DuoNeb 3.0-0.5 MG/3 ML] Med 10/24/20 07:16 Active 3 ml NEB Q2H PRN Albuterol/Ipratropium [DuoNeb 3.0-0.5 MG/3 ML] Med 10/24/20 10:00 Active 3 ml NEB Q4HRRT Docusate Sodium [Colace] Med 10/24/20 07:15 Active 100 mg PO BID PRN Insulin Lispro [HumaLOG] Med 10/24/20 11:00 Active See Protocol SUBCUT QIDACANDBED Ondansetron [Zofran ODT] Med 10/24/20 07:15 Active 4 mg PO Q4H PRN Ondansetron [Zofran] Med 10/24/20 07:15 Active 4 mg IV Q4H PRN Sodium Chloride 0.9% [Normal Saline] 1,000 ml Med 10/24/20 05:30 Active IV ASDIRECTED Sodium Chloride 0.9% [Saline Flush] Med 10/24/20 07:15 Active 10 ml FLUSH ASDIRECTED PRN methylPREDNISolone Sod Succ [Solu-MEDROL] Med 10/24/20 07:30 Active 40 mg IVPUSH Q8H polyethylene glycoL 3350 [MiraLAX] Med 10/24/20 07:15 Active 17 gm PO DAILY PRN Blood Culture x2 Reflex Set [OM.PC] Stat Ot 10/24/20 04:19 Ordered Saline Lock Insert [OM.PC] Routine Oth 10/24/20 07:15 Ordered Sequential Compression Device [OM.PC] Per Unit Routine Oth 10/24/20 07:13 Ordered Resuscitation Status Routine Resus Stat 10/24/20 07:11 Ordered Medication Orders Acetaminophen (Acetaminophen 325 Mg Tab) 650 mg PO Q4H PRN PRN Reason: Pain (Mild 1-3)/fever Albuterol/Ipratropium (Albuterol/Ipratropium 3.0-0.5 Mg/3 Ml Neb Soln) 3 ml NEB Q2H PRN PRN Reason: Shortness of Breath Albuterol/Ipratropium (Albuterol/Ipratropium 3.0-0.5 Mg/3 Ml Neb Soln) 3 ml NEB Q4HRRT KRYSTA Docusate Sodium (Docusate Sodium 100 Mg Cap) 100 mg PO BID PRN PRN Reason: Constipation Sodium Chloride (Normal Saline) 1,000 mls @ 100 mls/hr IV ASDIRECTED [facility] Last Admin: 10/24/20 05:24 Dose: 100 mls/hr Documented by: GISELLE Insulin Human Lispro (Insulin Lispro 100 Unit/Ml 10 Ml Vial) 0 unit SUBCUT QIDACANDBED [facility]; Protocol Methylprednisolone Sodium Succinate (Methylprednisolone Sodium Succinate 40 Mg/1 Ml Sdv) 40 mg IVPUSH Q8H KRYSTA Ondansetron HCl (Ondansetron 4 Mg Tab.Dis) 4 mg PO Q4H PRN PRN Reason: nausea, able to take PO Ondansetron HCl (Ondansetron 4 Mg/2 Ml Sdv) 4 mg IV Q4H PRN PRN Reason: Nausea/Vomiting Polyethylene Glycol (Polyethylene Glycol 3350 Powder 17 Gm Packet) 17 gm PO DAILY PRN PRN Reason: Constipation Sodium Chloride (Sodium Chloride 0.9% 10 Ml Syringe) 10 ml FLUSH ASDIRECTED PRN PRN Reason: Keep Vein Open Assessment/Plan Comment:: 65-year-old male with a past medical history notable for end-stage COPD on home oxygen, that continues to intermittently smoke, who presents to the [facility] emergency department with a chief complaint of shortness of breath and found to have acute hypoxemic and hypercarbic respiratory failure secondary to acute COPD exacerbation. 1. Acute hypoxemic and hypercarbic respiratory failure. Admit to the internal medicine service for further management. We will continue BiPAP for now. Patient can likely come off BiPAP within the hour. Continue scheduled and as needed DuoNeb's. Solu-Medrol 40 mg IV every 8 hours. Respiratory therapy consult. Ambulation saturation trials. Covid negative. Smoking cessation education. 2. Acute COPD exacerbation. Plan as above. 3. Elevated glucose. Hemoglobin A1c only 5.8. Does not meet diagnostic criteria for type 2 diabetes mellitus. We will cover with insulin due to steroid use. We will need to follow-up with primary care physician regarding this issue. 4. Tobacco user. Nicotine patch as needed. CODE STATUS: Full code. DVT prophylaxis with heparin. - Mortality Measure Prognosis:: Good
--- NOTE | 2020-10-24 08:47 | CR ---
Chest: Frontal view of the chest was obtained. Comparison: Prior chest x-rays of 01/23/19 and 01/22/19. Heart size and mediastinum are within normal limits. Lung markings are diffusely increased some of which appears chronic. Other findings are felt to be slightly increased from previous exams which may represent worsening chronic change with pulmonary vascular congestion or bronchitis is also within the differential. No alveolar densities are seen. Bony structures are unremarkable. Impression: 1. Increased lung markings within the chest some of which appears chronic. Other findings have increased either due to increased chronic change, superimposed bronchitis or pulmonary vascular congestion. 2. No additional abnormality is appreciated. Diagnostic code #3
[2020-10-24] MEDS: Heparin Sodium 5,000 Units/ML Vial SUBCUT SCH ×2 (09:15→19:57)
[2020-10-24] MEDS: methylPREDNISolone Sodium Succinate 40 MG/1 ML SDV IVPUSH SCH ×2 (09:16→16:12)
[2020-10-24] MEDS: Albuterol/Ipratropium 3.0-0.5 MG/3 ML Neb Soln NEB SCH ×4 (09:36→21:00)
[2020-10-24] MEDS ORDERED: Iopamidol 755 Mg/ML 100 ML Bottle IVPUSH ONE (10:48)
[2020-10-24] MEDS ORDERED: Insulin Lispro 100 UNIT/ML 10 ML Vial SUBCUT SCH (11:00)
[2020-10-24] MEDS ORDERED: Sodium Chloride 0.9% 100 ML IV SCH (11:00)
--- NOTE | 2020-10-24 11:38 | CT ---
CT chest Technique: Multiple axial sections through the chest were obtained. Intravenous contrast was utilized. Study has been performed as a pulmonary angiogram protocol. Comparison: Prior chest x-ray performed earlier on the same day (4:45 AM). Findings: Pulmonary arteries are well opacified. No filling defects are seen to indicate pulmonary embolism. There is a soft tissue abnormality being seen within the upper left side of the mediastinum adjacent to the aorta measuring 3.9 cm. This nodule most likely represents an enlarged lymph node. Other smaller lymph nodes are seen within the pretracheal region. Thoracic aorta shows atherosclerotic calcification with no aneurysm. No pericardial thickening is seen. Calcifications are seen possibly located within the aortic valve. Slightly prominent collecting system within the right kidney is seen which is incompletely included on this exam. Small cyst and small calcification is seen within the left kidney. Small cyst is noted within the liver. Diffuse interstitial change and emphysematous change is noted within both lungs. Subpleural blebs are noted within both upper lungs. There are no definite acute parenchymal change being seen. Increased lung markings seen on prior chest x-ray are felt to be chronic. Right lung base shows a small nodule compatible with granuloma. Left lung base shows a nodule which is noncalcified and measures 8 mm. Small subpleural nodule is also seen within the left base measuring 3 mm. There is a very minimal left lower lobe pleural effusion being seen. Impression: 1. No findings of pulmonary embolism. 2. Soft tissue density within the upper left mediastinum next to the aorta which measures 3.9 cm. Difficult to exclude neoplastic change. 3. Nodule within the left lung base measuring 8 mm which is noncalcified. Small subpleural nodule measuring 3 mm also noted within the left lung base. Small left-sided pleural effusion is also noted. 4. Small granuloma within the right lung base. 5. Mildly prominent collecting system within the right kidney which was incompletely include included on the study. This may represent UPJ prominence but difficult to exclude other etiology of hydronephrosis if patient has correlating symptoms. 6. Small cyst within the left kidney as well as small nonobstructing stone within the left kidney. 7. Emphysematous change as described above with no acute parenchymal change being seen. 8. Probable calcification within the aortic valve. Diagnostic code #9
[2020-10-24] MEDS ORDERED: LORazepam 2 MG/ML SDV IVPUSH ONE (12:55)
[2020-10-24] MEDS: Carvedilol 12.5 MG Tab PO SCH (16:34)
[2020-10-25] MEDS: methylPREDNISolone Sodium Succinate 40 MG/1 ML SDV IVPUSH SCH ×2 (00:03→08:36)
[2020-10-25] MEDS: Albuterol/Ipratropium 3.0-0.5 MG/3 ML Neb Soln NEB SCH ×6 (01:40→21:51)
[2020-10-25] MEDS: Carvedilol 12.5 MG Tab PO SCH ×2 (08:35→16:55)
[2020-10-25] MEDS: Aspirin 81 MG Tab.Chew PO SCH (08:37)
[2020-10-25] MEDS: Nicotine 21 MG/24 Hr Patch TRDERM SCH (08:38)
[2020-10-25] MEDS: Furosemide 40 MG Tab PO SCH (08:38)
[2020-10-25] MEDS: Lisinopril 20 MG Tab PO SCH (08:38)
[2020-10-25] MEDS: Heparin Sodium 5,000 Units/ML Vial SUBCUT SCH ×2 (08:39→20:01)
[2020-10-25] MEDS: Spironolactone 25 MG Tab PO SCH (08:39)
[2020-10-25] MEDS: ROFLUMILAST 250 MCG PO SCH (09:01)
--- NOTE | 2020-10-25 09:18 | PCM.PN ---
- General Info Date of Service: 10/25/20 Admission Dx/Problem (Free Text): Admission Diagnosis/Problem Admission Diagnosis/Problem COPD, Severe chronic obstructive pulmonary disease Subjective Update: No acute events over the past 24 hours. Patient weaned off BiPAP within 2 hours of admission to the floor. Now on a home regimen of 1 to 2-1/2 L/min. Patient states that he feels a lot better but feels weak and wishes to work with PT and OT. He would like to play it safe and continue management in the hospital so that he is not at higher risk going home for readmission. Denies any chest pain, chest pressure, pleurisy. Occasional cough but nonproductive. No fever. Taking in a diet and doing well. - Patient Data Vitals - Most Recent: Last Vital Signs Temp 97.8 F 10/25/20 08:00 Pulse 95 10/25/20 08:35 Resp 20 10/25/20 08:00 BP 148/74 H 10/25/20 08:38 Pulse Ox 98 10/25/20 09:00 Weight - Most Recent: 121 lb 10.25 oz I&O - Last 24 Hours: Intake & Output 10/24/20 10/25/20 10/25/20 22:59 06:59 14:59 Intake Total 920 400 Output Total 1250 700 Balance -330 -300 Lab Results Last 24 Hours: Laboratory Results - last 24 hr 10/24/20 10/25/20 10/25/20 Range/Units 20:51 06:01 06:01 WBC 11.32 H (4.23-9.07) K/mm3 RBC 4.68 (4.63-6.08) M/mm3 Hgb 13.4 L D (13.7-17.5) gm/dl Hct 41.7 (40.1-51.0) % MCV 89.1 (79.0-92.2) fl MCH 28.6 (25.7-32.2) pg MCHC 32.1 L (32.2-35.5) g/dl RDW Std Deviation 43.5 (35.1-43.9) fL Plt Count 208 (163-337) K/mm3 MPV 9.5 (9.4-12.3) fl Neut % (Auto) 93.5 H (34.0-67.9) % Lymph % (Auto) 3.1 L (21.8-53.1) % [place] % (Auto) 3.2 L (5.3-12.2) % Eos % (Auto) 0 L (0.8-7.0) Baso % (Auto) 0.0 L (0.1-1.2) % Neut # (Auto) 10.59 H (1.78-5.38) K/mm3 Lymph # (Auto) 0.35 L (1.32-3.57) K/mm3 [place] # (Auto) 0.36 (0.30-0.82) K/mm3 Eos # (Auto) 0.00 L (0.04-0.54) K/mm3 Baso # (Auto) 0.00 L (0.01-0.08) K/mm3 Manual Slide Review Abnormal smear Sodium 143 (136-145) mEq/L Potassium 3.8 (3.5-5.1) mEq/L Chloride 105 (98-107) mEq/L Carbon Dioxide 30 (21-32) mEq/L Anion Gap 11.8 (5-15) BUN 19 H (7-18) mg/dL Creatinine 0.8 (0.7-1.3) mg/dL Est Cr Clr Drug Dosing 70.88 mL/min Estimated GFR (MDRD) > 60 (>60) mL/min BUN/Creatinine Ratio 23.8 H (14-18) Glucose 140 H (70-99) mg/dL POC Glucose 184 H (70-99) mg/dL Calcium 8.7 (8.5-10.1) mg/dL Luis Results Last 24 Hours: Microbiology 10/24/20 04:44 Aerobic Blood Culture - Preliminary Blood - Venous NO GROWTH AFTER 1 DAY Anaerobic Blood Culture - Preliminary NO GROWTH AFTER 1 DAY 10/24/20 04:45 Aerobic Blood Culture - Preliminary Blood - Venous - Lab Draw NO GROWTH AFTER 1 DAY Anaerobic Blood Culture - Preliminary NO GROWTH AFTER 1 DAY Med Orders - Current: Current Medications Acetaminophen (Acetaminophen 325 Mg Tab) 650 mg PO Q4H PRN PRN Reason: Pain (Mild 1-3)/fever Albuterol/Ipratropium (Albuterol/Ipratropium 3.0-0.5 Mg/3 Ml Neb Soln) 3 ml NEB Q2H PRN PRN Reason: Shortness of Breath Albuterol/Ipratropium (Albuterol/Ipratropium 3.0-0.5 Mg/3 Ml Neb Soln) 3 ml NEB Q4HRRT [facility] Last Admin: 10/25/20 01:40 Dose: 3 ml Documented by: Aspirin (Aspirin 81 Mg Tab.Chew) 81 mg PO DAILY [facility] Last Admin: 10/25/20 08:37 Dose: 81 mg Documented by: Carvedilol (Carvedilol 12.5 Mg Tab) 25 mg PO BIDMEALS [facility] Last Admin: 10/25/20 08:35 Dose: 25 mg Documented by: Docusate Sodium (Docusate Sodium 100 Mg Cap) 100 mg PO BID PRN PRN Reason: Constipation Furosemide (Furosemide 40 Mg Tab) 40 mg PO DAILY [facility] Last Admin: 10/25/20 08:38 Dose: 40 mg Documented by: Heparin Sodium (Porcine) (Heparin Sodium 5,000 Units/Ml Vial) 5,000 units SUBCUT Q12H [facility] Last Admin: 10/25/20 08:39 Dose: 5,000 units Documented by: Lisinopril (Lisinopril 20 Mg Tab) 20 mg PO DAILY [facility] Last Admin: 10/25/20 08:38 Dose: 20 mg Documented by: Methylprednisolone Sodium Succinate (Methylprednisolone Sodium Succinate 40 Mg/1 Ml Sdv) 40 mg IVPUSH Q8H [facility] Last Admin: 10/25/20 08:36 Dose: 40 mg Documented by: Miscellaneous Information (Remove Old Nicotine Patch) 1 ea TRDERM DAILY [facility] Nicotine (Nicotine 21 Mg/24 Hr Patch) 21 mg TRDERM DAILY [facility] Last Admin: 10/25/20 08:38 Dose: Not Given Documented by: Ondansetron HCl (Ondansetron 4 Mg Tab.Dis) 4 mg PO Q4H PRN PRN Reason: nausea, able to take PO Ondansetron HCl (Ondansetron 4 Mg/2 Ml Sdv) 4 mg IV Q4H PRN PRN Reason: Nausea/Vomiting Roflumilast [ Daliresp] 250 Mcg Tablet 0 each PO DAILY [facility] Last Admin: 10/25/20 09:01 Dose: Not Given Documented by: Polyethylene Glycol (Polyethylene Glycol 3350 Powder 17 Gm Packet) 17 gm PO DAILY PRN PRN Reason: Constipation Sodium Chloride (Sodium Chloride 0.9% 10 Ml Syringe) 10 ml FLUSH ASDIRECTED PRN PRN Reason: Keep Vein Open Spironolactone (Spironolactone 25 Mg Tab) 25 mg PO DAILY [facility] Last Admin: 10/25/20 08:39 Dose: 25 mg Documented by: Discontinued Medications Albuterol/Ipratropium (Albuterol/Ipratropium 3.0-0.5 Mg/3 Ml Neb Soln) 3 ml NEB ONETIME ONE Stop: 10/24/20 04:20 Last Admin: 10/24/20 04:25 Dose: 3 ml Documented by: Albuterol/Ipratropium (Albuterol/Ipratropium 3.0-0.5 Mg/3 Ml Neb Soln) 3 ml NEB Q4H [facility] Last Admin: 10/24/20 09:45 Dose: Not Given Documented by: Sodium Chloride (Normal Saline) 1,000 mls @ 100 mls/hr IV ASDIRECTED [facility] Last Admin: 10/24/20 18:38 Dose: 100 mls/hr Documented by: Sodium Chloride (Normal Saline) 100 mls @ 75 mls/hr IV ASDIRECTED [facility] Stop: 10/24/20 15:00 Last Admin: 10/24/20 11:06 Dose: 75 mls/hr Documented by: Insulin Human Lispro (Insulin Lispro 100 Unit/Ml 10 Ml Vial) 0 unit SUBCUT QIDACANDBED [facility]; Protocol Last Admin: 10/24/20 13:09 Dose: Not Given Documented by: Iopamidol (Iopamidol 755 Mg/Ml 100 Ml Bottle) 100 ml IVPUSH ONETIME ONE Stop: 10/24/20 10:49 Last Admin: 10/24/20 11:06 Dose: 100 ml Documented by: Lorazepam (Lorazepam 2 Mg/Ml Sdv) 0.5 mg IVPUSH ONETIME ONE Stop: 10/24/20 12:56 Methylprednisolone Sodium Succinate (Methylprednisolone Sodium Succinate 125 Mg/2 Ml Sdv) 125 mg IVPUSH ONETIME ONE Stop: 10/24/20 05:33 Last Admin: 10/24/20 05:36 Dose: 125 mg Documented by: Methylprednisolone Sodium Succinate (Methylprednisolone Sodium Succinate 125 Mg/2 Ml Sdv) Confirm Administered Dose 125 mg .ROUTE .STK-MED ONE Stop: 10/24/20 05:35 Last Admin: 10/24/20 05:43 Dose: Not Given Documented by: Prednisone (Prednisone 20 Mg Tab) 40 mg PO ONETIME [facility] Stop: 10/24/20 05:10 Last Admin: 10/24/20 06:01 Dose: Not Given Documented by: Sodium Chloride (Sodium Chloride 0.9% 10 Ml Syringe) 10 ml FLUSH ONETIME PRN PRN Reason: IV FLUSH Stop: 10/24/20 13:00 Last Admin: 10/24/20 11:06 Dose: 10 ml Documented by: - Exam Quality Assessment: Supplemental Oxygen, DVT Prophylaxis General: Alert, No Acute Distress Lungs: Normal Respiratory Effort, Wheezing Cardiovascular: Regular Rate GI/Abdominal Exam: Normal Bowel Sounds, Soft, Non-Tender Extremities: Normal Inspection, No Pedal Edema Skin: Warm - Patient Data Lab Results Last 24 hrs: Laboratory Results - last 24 hr 10/24/20 10/25/20 10/25/20 Range/Units 20:51 06:01 06:01 WBC 11.32 H (4.23-9.07) K/mm3 RBC 4.68 (4.63-6.08) M/mm3 Hgb 13.4 L D (13.7-17.5) gm/dl Hct 41.7 (40.1-51.0) % MCV 89.1 (79.0-92.2) fl MCH 28.6 (25.7-32.2) pg MCHC 32.1 L (32.2-35.5) g/dl RDW Std Deviation 43.5 (35.1-43.9) fL Plt Count 208 (163-337) K/mm3 MPV 9.5 (9.4-12.3) fl Neut % (Auto) 93.5 H (34.0-67.9) % Lymph % (Auto) 3.1 L (21.8-53.1) % [place] % (Auto) 3.2 L (5.3-12.2) % Eos % (Auto) 0 L (0.8-7.0) Baso % (Auto) 0.0 L (0.1-1.2) % Neut # (Auto) 10.59 H (1.78-5.38) K/mm3 Lymph # (Auto) 0.35 L (1.32-3.57) K/mm3 [place] # (Auto) 0.36 (0.30-0.82) K/mm3 Eos # (Auto) 0.00 L (0.04-0.54) K/mm3 Baso # (Auto) 0.00 L (0.01-0.08) K/mm3 Manual Slide Review Abnormal smear Sodium 143 (136-145) mEq/L Potassium 3.8 (3.5-5.1) mEq/L Chloride 105 (98-107) mEq/L Carbon Dioxide 30 (21-32) mEq/L Anion Gap 11.8 (5-15) BUN 19 H (7-18) mg/dL Creatinine 0.8 (0.7-1.3) mg/dL Est Cr Clr Drug Dosing 70.88 mL/min Estimated GFR (MDRD) > 60 (>60) mL/min BUN/Creatinine Ratio 23.8 H (14-18) Glucose 140 H (70-99) mg/dL POC Glucose 184 H (70-99) mg/dL Calcium 8.7 (8.5-10.1) mg/dL Result Diagrams: 10/25/20 06:01 10/25/20 06:01 Luis Results Last 24 hrs: Microbiology 10/24/20 04:44 Aerobic Blood Culture - Preliminary Blood - Venous NO GROWTH AFTER 1 DAY Anaerobic Blood Culture - Preliminary NO GROWTH AFTER 1 DAY 10/24/20 04:45 Aerobic Blood Culture - Preliminary Blood - Venous - Lab Draw NO GROWTH AFTER 1 DAY Anaerobic Blood Culture - Preliminary NO GROWTH AFTER 1 DAY Sepsis Event Note - Evaluation Sepsis Screening Result: No Definite Risk - Focused Exam Vital Signs: Vital Signs Temp Pulse Resp BP BP Pulse Ox Pulse Ox 10/25/20 09:00 98 10/25/20 08:38 148/74 H 10/25/20 08:35 95 148/74 H 10/25/20 08:00 97.8 F 86 20 148/74 H 98 10/25/20 04:00 97.0 F 87 24 H 140/85 98 10/25/20 01:40 98 10/25/20 00:03 97.4 F 86 19 131/69 97 - Problem List Review Problem List Initiated/Reviewed/Updated: Yes - My Orders Last 24 Hours: My Active Orders 10/24/20 10:00 Albuterol/Ipratropium [DuoNeb 3.0-0.5 MG/3 ML] 3 ml NEB Q4HRRT 10/24/20 Lunch Consistent Carbohydrate Diet [DIET] 10/24/20 17:00 carvediloL [Coreg] 25 mg PO BIDMEALS 10/25/20 09:00 Aspirin 81 mg PO DAILY Furosemide [Lasix] 40 mg PO DAILY Nicotine [Habitrol] 21 mg TRDERM DAILY Patient's Own Medication [Ptom] 0 each PO DAILY Spironolactone [Aldactone] 25 mg PO DAILY lisinopriL [Prinivil] 20 mg PO DAILY 10/25/20 09:11 Admission Status [Patient Status] [ADT] Routine 10/26/20 09:00 Remove Patch 1 ea TRDERM DAILY - Plan Plan:: 65-year-old male with a past medical history notable for end-stage COPD on home oxygen, that continues to intermittently smoke, who presents to the [facility] emergency department with a chief complaint of shortness of breath and found to have acute hypoxemic and hypercarbic respiratory failure secondary to acute COPD exacerbation. 1. Acute hypoxemic and hypercarbic respiratory failure. Weaned off BiPAP and now on home regimen of supplemental oxygen. Continue scheduled and as needed DuoNeb's. Solu-Medrol to be transitioned to prednisone taper. Respiratory therapy consult. Ambulation saturation trials. Covid negative. Smoking cessation education. 2. Acute COPD exacerbation. Plan as above. 3. Elevated glucose. Hemoglobin A1c only 5.8. Does not meet diagnostic criteria for type 2 diabetes mellitus. We will cover with insulin as needed due to steroid use. We will need to follow-up with primary care physician regarding this issue. 4. Tobacco user. Nicotine patch as needed. CODE STATUS: Full code. DVT prophylaxis with heparin.
[2020-10-26] MEDS: Albuterol/Ipratropium 3.0-0.5 MG/3 ML Neb Soln NEB SCH ×3 (02:12→10:02)
[2020-10-26] MEDS ORDERED: predniSONE 20 MG Tab PO SCH ×2 (07:00)
[2020-10-26] MEDS: Carvedilol 12.5 MG Tab PO SCH (08:06)
[2020-10-26] MEDS: Spironolactone 25 MG Tab PO SCH (08:07)
[2020-10-26] MEDS: Furosemide 40 MG Tab PO SCH (08:07)
[2020-10-26] MEDS: Heparin Sodium 5,000 Units/ML Vial SUBCUT SCH (08:08)
[2020-10-26] MEDS: Lisinopril 20 MG Tab PO SCH (08:08)
[2020-10-26] MEDS: Aspirin 81 MG Tab.Chew PO SCH (08:08)
[2020-10-26] MEDS: Nicotine 21 MG/24 Hr Patch TRDERM SCH (08:09)
[2020-10-26] MEDS: ROFLUMILAST 250 MCG PO SCH (08:09)
--- NOTE | 2020-10-26 08:23 | PCM.DCSUM1 ---
Discharge Summary - Hospital Course Free Text/Narrative:: The patient was admitted secondary to acute on chronic respiratory failure and COPD exacerbation. Diagnosis: Stroke: No - Discharge Data Discharge Date: 10/26/20 Discharge Disposition: Home, Self-Care 01 Condition: Good - Referral to Home Health Primary Care Physician: Ana Funes PA-C - Patient Summary/Data Consults: Consultations 10/24/20 07:11 Respiratory Care Assess and Treatment [CONS] Routine 10/25/20 10:37 PT Evaluation and Treatment [CONS] Routine 10/25/20 10:38 OT Evaluation and Treatment [CONS] Routine Hospital Course: The patient is a 65-year-old gentleman who was admitted to acute hospitalization on October 24, 2020 due to COPD exacerbation. The patient normally uses oxygen at home and here and required increasing oxygen. The patient was admitted and started on IV antibiotics as well as steroids. The patient still continues to smoke. The patient was also found to have a pH on blood gas of 7.21 with a PCO2 in the 70s and severe hypoxemia. The patient had been started on methylprednisone and was transitioned to oral prednisone by time of discharge. The patient was also treated with a azithromycin and he tolerated this well. Initially the patient's white blood cell count was 11.9 and this had remained stable throughout hospitalization. Curiously, the patient had an initial blood sugar of 263 mg/dL and he was tested and found to have a hemoglobin A1c of 5.8%. The patient's hyperglycemia was thought to be secondary to steroids. Regardless he should follow-up with his primary care physician for this. The patient also had elevation of his B-type natriuretic peptide at 5377. The patie nt continued to improve with diuresis and his breathing had improved significantly. The patient by day of discharge had been back down to his normally use of oxygen. The patient has been strongly counseled on the use of tobacco products and no detrimental effects. The patient has refused tobacco cessation. The patient had been tolerating his diet and he has been recommended to continue with the diet as tolerated. The patient also will have activity as tolerated although this may be restricted with the use of his oxygen and his poor lung function. The patient also has been discharged on azithromycin 500 mg p.o. daily and prednisone 20 mg daily. The patient has been recommended to follow-up with his primary care physician. The patient also should be considered to be a high readmission risk. - Patient Instructions Diet: Heart Healthy Diet Activity: As Tolerated - Discharge Plan *PRESCRIPTION DRUG MONITORING PROGRAM REVIEWED*: Not Applicable *COPY OF PRESCRIPTION DRUG MONITORING REPORT IN PATIENT LIBBY: Not Applicable Prescriptions/Med Rec: Azithromycin 250 mg PO DAILY #10 tablet predniSONE 20 mg PO WITHBREAKFAST #10 tablet Home Medications: Home Meds Albuterol [Ventolin HFA] 2 puff INH Q4H PRN 10/22/18 [History] Lisinopril 20 mg PO DAILY 10/22/18 [History] carvediloL [Carvedilol] 25 mg PO BIDMEALS 10/22/18 [History] Aspirin 81 mg PO DAILY 11/05/18 [History] Budesonide/Formoterol Fumarate [Symbicort 80-4.5 MCG] 1 puff IH BID #4 inhaler 11/06/18 [Rx] Furosemide [Lasix] 40 mg PO DAILY #20 tablet 01/26/19 [Rx] Ipratropium [Atrovent] 0.5 mg NEB Q8HR 3 Days #9 neb 01/26/19 [Rx] Roflumilast [Daliresp] 500 mcg PO DAILY 10/24/20 [History] Spironolactone [Aldactone] 25 mg PO DAILY 10/24/20 [History] Azithromycin 250 mg PO DAILY #10 tablet 10/26/20 [Rx] predniSONE 20 mg PO WITHBREAKFAST #10 tablet 10/26/20 [Rx] Patient Handouts: Shortness of Breath, Adult, [id number], Heart Failure, Self Care, [id number], Chronic Obstructive Pulmonary Disease, [id number], Home Oxygen Use, Adult, Living With Heart Failure, Steps to Quit Smoking Forms: ED Department Discharge Referrals: Ana Funes PA-C [Primary Care Provider] - Arsenio Littlejohn MD [Ordering Only Provider] - Clari Rogers MD [Ordering Only Provider] - - Discharge Summary/Plan Comment DC Time >30 min.: Yes - General Info Date of Service: 10/26/20 Admission Dx/Problem (Free Text: Admission Diagnosis/Problem Admission Diagnosis/Problem COPD, Severe chronic obstructive pulmonary disease Subjective Update: The patient is doing better. He is breathing better. He has been tolerating his diet. Functional Status: Reports: Pain Controlled, Tolerating Diet - Review of Systems General: Reports: No Symptoms HEENT: Reports: No Symptoms Pulmonary: Reports: Shortness of Breath Cardiovascular: Reports: No Symptoms Gastrointestinal: Reports: No Symptoms Genitourinary: Reports: No Symptoms Musculoskeletal: Reports: No Symptoms Skin: Reports: No Symptoms Neurological: Reports: No Symptoms Psychiatric: Reports: No Symptoms - Patient Data Vitals - Most Recent: Last Vital Signs Temp 36.7 C 10/26/20 07:27 Pulse 89 10/26/20 08:06 Resp 20 10/26/20 04:00 BP 136/94 H 10/26/20 08:08 Pulse Ox 98 10/26/20 06:08 Weight - Most Recent: 55.701 kg I&O - Last 24 hours: Intake & Output 10/25/20 10/26/20 10/26/20 22:59 06:59 14:59 Intake Total 1720 710 Output Total 800 750 Balance 920 -40 Lab Results - Last 24 hrs: Laboratory Results - last 24 hr 10/25/20 10/25/20 10/25/20 Range/Units 06:01 07:41 07:41 Sodium 143 (136-145) mEq/L Potassium 3.8 (3.5-5.1) mEq/L Chloride 105 (98-107) mEq/L Carbon Dioxide 30 (21-32) mEq/L Anion Gap 11.8 (5-15) BUN 19 H (7-18) mg/dL Creatinine 0.8 (0.7-1.3) mg/dL Est Cr Clr Drug Dosing 70.88 mL/min Estimated GFR (MDRD) > 60 (>60) mL/min BUN/Creatinine Ratio 23.8 H (14-18) Glucose 140 H (70-99) mg/dL POC Glucose 128 H 128 H (70-99) mg/dL Calcium 8.7 (8.5-10.1) mg/dL 10/25/20 10/26/20 Range/Units 20:05 07:21 Sodium (136-145) mEq/L Potassium (3.5-5.1) mEq/L Chloride (98-107) mEq/L Carbon Dioxide (21-32) mEq/L Anion Gap (5-15) BUN (7-18) mg/dL Creatinine (0.7-1.3) mg/dL Est Cr Clr Drug Dosing mL/min Estimated GFR (MDRD) (>60) mL/min BUN/Creatinine Ratio (14-18) Glucose (70-99) mg/dL POC Glucose 145 H 109 H (70-99) mg/dL Calcium (8.5-10.1) mg/dL MONIK Results - Last 24 hrs: Microbiology 10/24/20 04:44 Aerobic Blood Culture - Preliminary Blood - Venous NO GROWTH AFTER 2 DAYS Anaerobic Blood Culture - Preliminary NO GROWTH AFTER 2 DAYS 10/24/20 04:45 Aerobic Blood Culture - Preliminary Blood - Venous - Lab Draw NO GROWTH AFTER 2 DAYS Anaerobic Blood Culture - Preliminary NO GROWTH AFTER 2 DAYS Med Orders - Current: Current Medications Acetaminophen (Acetaminophen 325 Mg Tab) 650 mg PO Q4H PRN PRN Reason: Pain (Mild 1-3)/fever Albuterol/Ipratropium (Albuterol/Ipratropium 3.0-0.5 Mg/3 Ml Neb Soln) 3 ml NEB Q2H PRN PRN Reason: Shortness of Breath Albuterol/Ipratropium (Albuterol/Ipratropium 3.0-0.5 Mg/3 Ml Neb Soln) 3 ml NEB Q4HRRT [facility] Last Admin: 10/26/20 06:07 Dose: 3 ml Documented by: Aspirin (Aspirin 81 Mg Tab.Chew) 81 mg PO DAILY [facility] Last Admin: 10/26/20 08:08 Dose: 81 mg Documented by: Carvedilol (Carvedilol 12.5 Mg Tab) 25 mg PO BIDMEALS [facility] Last Admin: 10/26/20 08:06 Dose: 25 mg Documented by: Docusate Sodium (Docusate Sodium 100 Mg Cap) 100 mg PO BID PRN PRN Reason: Constipation Furosemide (Furosemide 40 Mg Tab) 40 mg PO DAILY [facility] Last Admin: 10/26/20 08:07 Dose: 40 mg Documented by: Heparin Sodium (Porcine) (Heparin Sodium 5,000 Units/Ml Vial) 5,000 units SUBCUT Q12H [facility] Last Admin: 10/26/20 08:08 Dose: 5,000 units Documented by: Lisinopril (Lisinopril 20 Mg Tab) 20 mg PO DAILY [facility] Last Admin: 10/26/20 08:08 Dose: 20 mg Documented by: Miscellaneous Information (Remove Old Nicotine Patch) 1 ea TRDERM DAILY [facility] Last Admin: 10/26/20 08:09 Dose: Not Given Documented by: Nicotine (Nicotine 21 Mg/24 Hr Patch) 21 mg TRDERM DAILY [facility] Last Admin: 10/26/20 08:09 Dose: Not Given Documented by: Ondansetron HCl (Ondansetron 4 Mg Tab.Dis) 4 mg PO Q4H PRN PRN Reason: nausea, able to take PO Ondansetron HCl (Ondansetron 4 Mg/2 Ml Sdv) 4 mg IV Q4H PRN PRN Reason: Nausea/Vomiting Roflumilast [ Daliresp] 250 Mcg Tablet 0 each PO DAILY [facility] Last Admin: 10/26/20 08:09 Dose: Not Given Documented by: Polyethylene Glycol (Polyethylene Glycol 3350 Powder 17 Gm Packet) 17 gm PO DAILY PRN PRN Reason: Constipation Prednisone (Prednisone 20 Mg Tab) 40 mg PO WITHBREAKFAST [facility] Stop: 10/28/20 07:01 Last Admin: 10/26/20 08:07 Dose: 40 mg Documented by: Prednisone (Prednisone 10 Mg Tab) 30 mg PO WITHBREAKFAST [facility] Stop: 10/31/20 07:01 Prednisone (Prednisone 20 Mg Tab) 20 mg PO WITHBREAKFAST [facility] Stop: 11/03/20 07:01 Prednisone (Prednisone 10 Mg Tab) 10 mg PO WITHBREAKFAST [facility] Stop: 11/06/20 07:01 Sodium Chloride (Sodium Chloride 0.9% 10 Ml Syringe) 10 ml FLUSH ASDIRECTED PRN PRN Reason: Keep Vein Open Spironolactone (Spironolactone 25 Mg Tab) 25 mg PO DAILY [facility] Last Admin: 10/26/20 08:07 Dose: 25 mg Documented by: Discontinued Medications Albuterol/Ipratropium (Albuterol/Ipratropium 3.0-0.5 Mg/3 Ml Neb Soln) 3 ml NEB ONETIME ONE Stop: 10/24/20 04:20 Last Admin: 10/24/20 04:25 Dose: 3 ml Documented by: Albuterol/Ipratropium (Albuterol/Ipratropium 3.0-0.5 Mg/3 Ml Neb Soln) 3 ml NEB Q4H [facility] Last Admin: 10/24/20 09:45 Dose: Not Given Documented by: Sodium Chloride (Normal Saline) 1,000 mls @ 100 mls/hr IV ASDIRECTED [facility] Last Admin: 10/24/20 18:38 Dose: 100 mls/hr Documented by: Sodium Chloride (Normal Saline) 100 mls @ 75 mls/hr IV ASDIRECTED [facility] Stop: 10/24/20 15:00 Last Admin: 10/24/20 11:06 Dose: 75 mls/hr Documented by: Insulin Human Lispro (Insulin Lispro 100 Unit/Ml 10 Ml Vial) 0 unit SUBCUT QIDACANDBED [facility]; Protocol Last Admin: 10/24/20 13:09 Dose: Not Given Documented by: Iopamidol (Iopamidol 755 Mg/Ml 100 Ml Bottle) 100 ml IVPUSH ONETIME ONE Stop: 10/24/20 10:49 Last Admin: 10/24/20 11:06 Dose: 100 ml Documented by: Lorazepam (Lorazepam 2 Mg/Ml Sdv) 0.5 mg IVPUSH ONETIME ONE Stop: 10/24/20 12:56 Last Admin: 10/25/20 19:51 Dose: Not Given Documented by: Methylprednisolone Sodium Succinate (Methylprednisolone Sodium Succinate 125 Mg/2 Ml Sdv) 125 mg IVPUSH ONETIME ONE Stop: 10/24/20 05:33 Last Admin: 10/24/20 05:36 Dose: 125 mg Documented by: Methylprednisolone Sodium Succinate (Methylprednisolone Sodium Succinate 125 Mg /2 Ml Sdv) Confirm Administered Dose 125 mg .ROUTE .STK-MED ONE Stop: 10/24/20 05:35 Last Admin: 10/24/20 05:43 Dose: Not Given Documented by: Methylprednisolone Sodium Succinate (Methylprednisolone Sodium Succinate 40 Mg/1 Ml Sdv) 40 mg IVPUSH Q8H [facility] Last Admin: 10/25/20 08:36 Dose: 40 mg Documented by: Prednisone (Prednisone 20 Mg Tab) 40 mg PO ONETIME [facility] Stop: 10/24/20 05:10 Last Admin: 10/24/20 06:01 Dose: Not Given Documented by: Sodium Chloride (Sodium Chloride 0.9% 10 Ml Syringe) 10 ml FLUSH ONETIME PRN PRN Reason: IV FLUSH Stop: 10/24/20 13:00 Last Admin: 10/24/20 11:06 Dose: 10 ml Documented by: - Exam Quality Assessment: Reports: Supplemental Oxygen. Denies: DVT Prophylaxis General: Reports: Alert, Oriented, Cooperative, Other (Appears older than stated age.) HEENT: Reports: Pupils Equal, Pupils Reactive, EOMI Neck: Reports: Supple, Trachea Midline Lungs: Reports: Clear to Auscultation, Decreased Breath Sounds Cardiovascular: Reports: Regular Rate, Regular Rhythm GI/Abdominal Exam: Normal Bowel Sounds, Soft, Non-Tender, No Distention (Male) Exam: Deferred Rectal (Males) Exam: Deferred Back Exam: Reports: Normal Inspection, Full Range of Motion Extremities: Normal Inspection, Normal Range of Motion, No Pedal Edema Skin: Reports: Warm, Dry, Intact Neurological: Reports: No New Focal Deficit Psy/Mental Status: Reports: Alert, Normal Affect, Normal Mood
[2020-10-29] MEDS ORDERED: predniSONE 10 MG Tab PO SCH (07:00)
[2020-11-01] MEDS ORDERED: predniSONE 20 MG Tab PO SCH (07:00)
[2020-11-04] MEDS ORDERED: predniSONE 10 MG Tab PO SCH (07:00)
== END 2020-10-26 13:45 | disposition home or self-care (01) | DRG 189 ==
LOC: JD.ED 04:03 → JD.MS 07:11 → JD.ICU 07:11 → UNDOADMIN 07:11
PROVIDERS: ADMIT Hospitalist; ATTEND Hospitalist
DX: J96.21 Acute and chronic respiratory failure with hypoxia (principal); J43.9 Emphysema, unspecified; J96.22 Acute and chronic respiratory failure with hypercapnia; R73.9 Hyperglycemia, unspecified; E11.65 Type 2 diabetes mellitus with hyperglycemia; T38.0X5A Adverse effect of glucocorticoids and synthetic analogues, initial encounter; Z79.52 Long term (current) use of systemic steroids; I11.0 Hypertensive heart disease with heart failure; F17.210 Nicotine dependence, cigarettes, uncomplicated; Z79.82 Long term (current) use of aspirin; I50.9 Heart failure, unspecified; Z79.899 Other long term (current) drug therapy; Z79.51 Long term (current) use of inhaled steroids; Z20.822 Contact with and (suspected) exposure to COVID-19
CPT/HCPCS: 36415; 36600 ×2; 71045; 80053; 82803 ×2; 83036; 83605 ×2; 83880; 84484; 85007; 85027; 85379; 87040 ×2; 93005; 94640; 94660; 96374; 99285; J2930; J7030; U0002; 71275; 71275-26; 80048; 82947; 85025; 93010; 93306; 99223; 99233; 99239; A9270-GY; J1644; J2920; J7512; J7620-GY; Q9967

== ENCOUNTER 2021-02-23 00:59 | Emergency (ER) | payer MEDICARE, MEDICAID ==
[2021-02-23] MEDS ORDERED: methylPREDNISolone Sodium Succinate 125 MG/2 ML SDV IVPUSH ONE (01:04)
[2021-02-23] MEDS ORDERED: Albuterol/Ipratropium 3.0-0.5 MG/3 ML Neb Soln NEB ONE ×2 (01:04→07:53)
--- NOTE | 2021-02-23 01:22 | EDM.PDOC ---
ED HPI GENERAL MEDICAL PROBLEM - General Chief Complaint: Respiratory Problem Stated Complaint: [facility] Time Seen by Provider: 02/23/21 01:00 Source of Information: Reports: Patient, EMS History Limitations: Reports: Respiratory Distress - History of Present Illness INITIAL COMMENTS - FREE TEXT/NARRATIVE: Patient 65-year-old male presenting to the emergency room for severe shortness of breath. On ambulance arrival, patient was agonal respirations and O2 saturation in the 40s. Patient does have past history of COPD and CHF. Not on home oxygen. Patient was placed on 15 L nonrebreather and transported to the hospital. History significantly limited by patient's respiratory distress. He does not complain of any pain. No other interventions performed prior to arrival. Chart review: It does look like patient was admitted for similar complaint in October. - Related Data Allergies Allergy/AdvReac Type Severity Reaction Status Date / Time No Known Allergies Allergy Verified 02/23/21 01:08 Home Meds: Home Meds Albuterol [Ventolin HFA] 2 puff INH Q4H PRN 10/22/18 [History] Lisinopril 20 mg PO DAILY 10/22/18 [History] carvediloL [Carvedilol] 25 mg PO BIDMEALS 10/22/18 [History] Aspirin 81 mg PO DAILY 11/05/18 [History] Budesonide/Formoterol Fumarate [Symbicort 80-4.5 MCG] 1 puff IH BID #4 inhaler 11/06/18 [Rx] Furosemide [Lasix] 40 mg PO DAILY #20 tablet 01/26/19 [Rx] Ipratropium [Atrovent] 0.5 mg NEB Q8HR 3 Days #9 neb 01/26/19 [Rx] Roflumilast [Daliresp] 500 mcg PO DAILY 10/24/20 [History] Spironolactone [Aldactone] 25 mg PO DAILY 10/24/20 [History] Azithromycin 250 mg PO DAILY #10 tablet 10/26/20 [Rx] predniSONE 20 mg PO WITHBREAKFAST #10 tablet 10/26/20 [Rx] Past Medical History HEENT History: Reports: None Cardiovascular History: Reports: Heart Failure, Hypertension Respiratory History: Reports: COPD Other Respiratory History: emphysema Gastrointestinal History: Reports: None Genitourinary History: Reports: None Musculoskeletal History: Reports: None Neurological History: Reports: None Psychiatric History: Reports: None Endocrine/Metabolic History: Reports: None Hematologic History: Reports: None Immunologic History: Reports: None Oncologic (Cancer) History: Reports: None Dermatologic History: Reports: None - Infectious Disease History Infectious Disease History: Reports: Chicken Pox, Measles - Past Surgical History Head Surgeries/Procedures: Reports: None HEENT Surgical History: Reports: None Male Surgical History: Reports: Circumcision Neurological Surgical History: Reports: None Musculoskeletal Surgical History: Reports: None Oncologic Surgical History: Reports: None Dermatological Surgical History: Reports: None Social & Family History - Family History Family Medical History: No Pertinent Family History - Tobacco Use Tobacco Use Status *Q: Former Tobacco User Used Tobacco, but Quit: Yes Month/Year Tobacco Last Used: 2020 - Caffeine Use Caffeine Use: Reports: None Other Caffeine Use: 6-8 cans daily - Recreational Drug Use Recreational Drug Use: No - Living Situation & Occupation Living situation: Reports: Single, with Significant Other (Girlfriend) Occupation: Unemployed ED ROS GENERAL - Review of Systems Review Of Systems: Unable To Obtain Reason Not Obtained: Respiratory distress ED EXAM, GENERAL - Physical Exam Exam: See Below Free Text/Narrative:: I have reviewed the triage vital signs Const: Patient appears severely unwell. Eyes are closed. Eyes: Pupils Equal and reactive to light bilaterally, no conjunctival injection HENT: No signs of trauma or swelling, Neck supple without meningismus CV: Tachycardic with regular rhythm, Warm, well-perfused extremities RESP: Diffuse bilateral wheezing. Patient is using accessory muscles. Breathing. Able to speak 1-2 words at a time. GI: soft, non-tender, non-distended, no masses MSK: No gross deformities appreciated Skin: Warm, dry. No rashes Neuro: Alert, freight sales broker II-XII grossly intact. Sensation and motor function of extremities grossly intact. Psych: Anxious appearing #1 Interpretation EKG Date: 02/23/21 Time: 01:09 Rhythm: NSR Rate (Beats/Min): 124 [place]: Normal P-Wave: Present QRS: LBBB ST-T: Normal QT: Normal Comparison: No Change EKG Interpretation Comments: abnormal ekg Course - Vital Signs Last Recorded V/S: Last Vital Signs Temp 35.8 C L 02/23/21 01:02 Pulse 129 H 02/23/21 01:02 Resp 24 H 02/23/21 01:02 BP 200/130 H 02/23/21 01:02 Pulse Ox 96 02/23/21 04:16 - Orders/Labs/Meds Orders: Active Orders 24 hr Category Date Time Status BIPAP Adult [RT BiPAP/CPAP] [RC] ASDIRECTED Care 02/23/21 01:08 Active RT Aerosol Therapy [RC] ASDIRECTED Care 02/23/21 01:05 Active Chest 1V Frontal [CR] Stat Exams 02/23/21 01:03 Taken PROCALCITONIN [REF] Stat Lab 02/23/21 01:18 Received Labs: Laboratory Tests 02/23/21 02/23/21 02/23/21 Range/Units 01:05 01:15 01:18 WBC 9.39 H (4.23-9.07) K/mm3 RBC 5.19 (4.63-6.08) M/mm3 Hgb 14.8 (13.7-17.5) gm/dl Hct 47.4 (40.1-51.0) % MCV 91.3 (79.0-92.2) fl MCH 28.5 (25.7-32.2) pg MCHC 31.2 L (32.2-35.5) g/dl RDW Std Deviation 45.9 H (35.1-43.9) fL Plt Count 257 (163-337) K/mm3 MPV 10.0 (9.4-12.3) fl Neut % (Auto) 47.6 (34.0-67.9) % Lymph % (Auto) 41.9 (21.8-53.1) % [place] % (Auto) 8.4 (5.3-12.2) % Eos % (Auto) 1.4 (0.8-7.0) Baso % (Auto) 0.4 (0.1-1.2) % Neut # (Auto) 4.47 (1.78-5.38) K/mm3 Lymph # (Auto) 3.93 H (1.32-3.57) K/mm3 [place] # (Auto) 0.79 (0.30-0.82) K/mm3 Eos # (Auto) 0.13 (0.04-0.54) K/mm3 Baso # (Auto) 0.04 (0.01-0.08) K/mm3 PT (9.7-12.0) SECONDS INR VBG pH 7.08 L (7.30-7.40) VBG pCO2 85.1 H (41-51) mmHg VBG pO2 165.0 H (40-80) mmHG VBG HCO3 24.0 (22-26) meq/L VBG O2 Saturation 98.3 VBG Base Excess -8.8 L (-4.0-2.0) O2 Delivery Device Nrb mask Oxygen Flow Rate 12.0 Sodium (136-145) mEq/L Potassium (3.5-5.1) mEq/L Chloride (98-107) mEq/L Carbon Dioxide (21-32) mEq/L Anion Gap (5-15) BUN (7-18) mg/dL Creatinine (0.7-1.3) mg/dL Est Cr Clr Drug Dosing mL/min Estimated GFR (MDRD) (>60) mL/min BUN/Creatinine Ratio (14-18) Glucose (70-99) mg/dL Calcium (8.5-10.1) mg/dL Total Bilirubin (0.2-1.0) mg/dL AST (15-37) U/L ALT (16-63) U/L Alkaline Phosphatase (46-116) U/L Troponin I (0.00-0.056) ng/mL NT-Pro-B Natriuret Pep (0-125) pg/mL Total Protein (6.4-8.2) g/dl Albumin (3.4-5.0) g/dl Globulin gm/dL Albumin/Globulin Ratio (1-2) SARS-CoV-2 RNA (JAMES) Negative (NEGATIVE) 02/23/21 02/23/21 02/23/21 Range/Units 01:18 01:18 01:18 WBC (4.23-9.07) K/mm3 RBC (4.63-6.08) M/mm3 Hgb (13.7-17.5) gm/dl Hct (40.1-51.0) % MCV (79.0-92.2) fl MCH (25.7-32.2) pg MCHC (32.2-35.5) g/dl RDW Std Deviation (35.1-43.9) fL Plt Count (163-337) K/mm3 MPV (9.4-12.3) fl Neut % (Auto) (34.0-67.9) % Lymph % (Auto) (21.8-53.1) % [place] % (Auto) (5.3-12.2) % Eos % (Auto) (0.8-7.0) Baso % (Auto) (0.1-1.2) % Neut # (Auto) (1.78-5.38) K/mm3 Lymph # (Auto) (1.32-3.57) K/mm3 [place] # (Auto) (0.30-0.82) K/mm3 Eos # (Auto) (0.04-0.54) K/mm3 Baso # (Auto) (0.01-0.08) K/mm3 PT 11.4 (9.7-12.0) SECONDS INR 1.03 VBG pH (7.30-7.40) VBG pCO2 (41-51) mmHg VBG pO2 (40-80) mmHG VBG HCO3 (22-26) meq/L VBG O2 Saturation VBG Base Excess (-4.0-2.0) O2 Delivery Device Oxygen Flow Rate Sodium 141 (136-145) mEq/L Potassium 4.0 (3.5-5.1) mEq/L Chloride 104 (98-107) mEq/L Carbon Dioxide 25 (21-32) mEq/L Anion Gap 16.0 H (5-15) BUN 21 H (7-18) mg/dL Creatinine 1.4 H (0.7-1.3) mg/dL Est Cr Clr Drug Dosing 43.29 mL/min Estimated GFR (MDRD) 51 (>60) mL/min BUN/Creatinine Ratio 15.0 (14-18) Glucose 269 H (70-99) mg/dL Calcium 8.3 L (8.5-10.1) mg/dL Total Bilirubin 0.6 (0.2-1.0) mg/dL AST 80 H (15-37) U/L ALT 40 (16-63) U/L Alkaline Phosphatase 89 (46-116) U/L Troponin I 0.027 (0.00-0.056) ng/mL NT-Pro-B Natriuret Pep 5397 H (0-125) pg/mL Total Protein 6.5 (6.4-8.2) g/dl Albumin 3.6 (3.4-5.0) g/dl Globulin 2.9 gm/dL Albumin/Globulin Ratio 1.2 (1-2) SARS-CoV-2 RNA (JAMES) (NEGATIVE) 02/23/21 Range/Units 02:10 WBC (4.23-9.07) K/mm3 RBC (4.63-6.08) M/mm3 Hgb (13.7-17.5) gm/dl Hct (40.1-51.0) % MCV (79.0-92.2) fl MCH (25.7-32.2) pg MCHC (32.2-35.5) g/dl RDW Std Deviation (35.1-43.9) fL Plt Count (163-337) K/mm3 MPV (9.4-12.3) fl Neut % (Auto) (34.0-67.9) % Lymph % (Auto) (21.8-53.1) % [place] % (Auto) (5.3-12.2) % Eos % (Auto) (0.8-7.0) Baso % (Auto) (0.1-1.2) % Neut # (Auto) (1.78-5.38) K/mm3 Lymph # (Auto) (1.32-3.57) K/mm3 [place] # (Auto) (0.30-0.82) K/mm3 Eos # (Auto) (0.04-0.54) K/mm3 Baso # (Auto) (0.01-0.08) K/mm3 PT (9.7-12.0) SECONDS INR VBG pH 7.23 L (7.30-7.40) VBG pCO2 67.4 H (41-51) mmHg VBG pO2 46.0 (40-80) mmHG VBG HCO3 27.3 H (22-26) meq/L VBG O2 Saturation 71.5 VBG Base Excess -1.6 (-4.0-2.0) O2 Delivery Device Bipap 14/7 Oxygen Flow Rate 15.0 Sodium (136-145) mEq/L Potassium (3.5-5.1) mEq/L Chloride (98-107) mEq/L Carbon Dioxide (21-32) mEq/L Anion Gap (5-15) BUN (7-18) mg/dL Creatinine (0.7-1.3) mg/dL Est Cr Clr Drug Dosing mL/min Estimated GFR (MDRD) (>60) mL/min BUN/Creatinine Ratio (14-18) Glucose (70-99) mg/dL Calcium (8.5-10.1) mg/dL Total Bilirubin (0.2-1.0) mg/dL AST (15-37) U/L ALT (16-63) U/L Alkaline Phosphatase (46-116) U/L Troponin I (0.00-0.056) ng/mL NT-Pro-B Natriuret Pep (0-125) pg/mL Total Protein (6.4-8.2) g/dl Albumin (3.4-5.0) g/dl Globulin gm/dL Albumin/Globulin Ratio (1-2) SARS-CoV-2 RNA (JAMES) (NEGATIVE) Meds: Medications Discontinued Medications Generic Name Dose Route Start Last Admin Trade Name Freq PRN Reason Stop Dose Admin Albuterol/Ipratropium 3 ml 02/23/21 01:04 02/23/21 01:29 Albuterol/Ipratropium 3.0-0.5 Mg/3 Ml Neb Soln NEB 02/23/21 01:05 3 ml ONETIME ONE Administration Methylprednisolone Sodium Succinate 125 mg 02/23/21 01:04 02/23/21 01:11 Methylprednisolone Sodium Succinate 125 Mg/2 Ml Sdv IVPUSH 02/23/21 01:05 125 mg ONETIME ONE Administration Departure - Departure Time of Disposition: 07:00 Disposition: Admitted As Inpatient 65 Preliminary Cause of *Q: Sepsis & Multi System Organ Failure Clinical Impression: COPD exacerbation - Discharge Information Forms: ED Department Discharge Critical Care Note - Critical Care Note Total Time (mins): 40 Comments: Critical Care Procedure Note Total critical care time: Approximately 40 minutes Due to a high probability of clinically significant, life threatening deterioration, the patient required my highest level of preparedness to inte rvene emergently and I personally spent this critical care time directly and personally managing the patient. This critical care time included obtaining a history; examining the patient; pulse oximetry; ordering and review of studies; arranging urgent treatment with development of a management plan; evaluation of patient's response to treatment; frequent reassessment; and, discussions with other providers. This critical care time was performed to assess and manage the high probability of imminent, life-threatening deterioration that could result in multi-organ failure. It was exclusive of separately billable procedures and treating other patients and teaching time. Sepsis Event Note (ED) - Evaluation Sepsis Screening Result: Possible Sepsis Risk - Focused Exam Vital Signs: Vital Signs Temp Pulse Resp BP Pulse Ox Pulse Ox 02/23/21 04:16 96 02/23/21 01:33 93 L 02/23/21 01:02 35.8 C L 129 H 24 H 200/130 H 100 - My Orders Last 24 Hours: My Active Orders 02/23/21 01:03 Chest 1V Frontal [CR] Stat 02/23/21 01:05 RT Aerosol Therapy [RC] ASDIRECTED 02/23/21 01:08 BIPAP Adult [RT BiPAP/CPAP] [RC] ASDIRECTED 02/23/21 01:18 PROCALCITONIN [REF] Stat - Assessment/Plan Last 24 Hours: My Active Orders 02/23/21 01:03 Chest 1V Frontal [CR] Stat 02/23/21 01:05 RT Aerosol Therapy [RC] ASDIRECTED 02/23/21 01:08 BIPAP Adult [RT BiPAP/CPAP] [RC] ASDIRECTED 02/23/21 01:18 PROCALCITONIN [REF] Stat Assessment:: Patient is 65-year-old male presented to emergency room with respiratory distress. On arrival, patient was immediately placed on BiPAP with improvement of symptoms. His initial blood gas demonstrated acidemia secondary to respiratory acidosis. This is likely secondary to patient's COPD exacerbation. Laboratory studies do not demonstrate leukocytosis at all. He did have EKG performed demonstrating left bundle branch block. His troponin was negative. BNP elevated in the 5000 range. Chest x-ray reviewed did not demonstrate any evidence of pulmonary vascular congestion. No evidence of volume overload on his exam. Continuous albuterol nebulizers were given as well as Solu-Medrol. Alternative diagnoses considered include CHF exacerbation, PE, pneumothorax, bacterial pneumonia. At this point, patient will require admission to the hospital. Is unclear is whether a bed will be available at this facility at 8 AM. Otherwise, patient will be required to be transferred to another facility. Patient is currently stable and vital signs have significantly improved. Repeat blood gas showed imp rovement of acid-base status.
--- NOTE | 2021-02-23 07:39 | CR ---
Chest: Portable view of the chest was obtained. Comparison: Prior chest x-ray of 10/24/20. Increasing markings are seen on both sides of the chest. Heart is also enlarged. Tam[place] B-Lines are also seen. Findings are suspicious for diffuse pulmonary fibrosis with superimposed findings of CHF. Lungs are also hyperinflated compatible with emphysematous change. Impression: 1. Findings suspicious for chronic interstitial change with superimposed CHF. Diagnostic code #3
[2021-02-23] MEDS ORDERED: Furosemide 40 MG/4 ML VIAL IVPUSH ONE (11:03)
[2021-02-24] MEDS ORDERED: Furosemide 40 MG/4 ML VIAL IVPUSH ONE (10:43)
== END 2021-02-23 15:11 | disposition critical access hospital (66) ==
LOC: JD.ED 00:59
DX: J44.1 Chronic obstructive pulmonary disease with (acute) exacerbation (principal); I11.0 Hypertensive heart disease with heart failure; I50.9 Heart failure, unspecified; R94.31 Abnormal electrocardiogram [ECG] [EKG]; Z87.891 Personal history of nicotine dependence; Z79.82 Long term (current) use of aspirin; Z79.899 Other long term (current) drug therapy; Z20.822 Contact with and (suspected) exposure to COVID-19
CPT/HCPCS: 36415; 71045; 80053; 82803; 83880; 84145; 84484; 85025; 85610; 93005; 94640; 94660; 96374; 96375; 99285; J1940; J2930; U0002; J7620-GY

== ENCOUNTER 2021-04-01 01:40 | Emergency (ER) | payer MEDICARE, MEDICAID ==
[2021-04-01] MEDS ORDERED: Albuterol/Ipratropium 3.0-0.5 MG/3 ML Neb Soln NEB ONE (01:54)
[2021-04-01] MEDS ORDERED: predniSONE 20 MG Tab PO STA (02:40)
[2021-04-01] MEDS ORDERED: Albuterol 0.083% 2.5 MG/3 ML Neb Soln NEB ONE ×2 (02:40→04:07)
--- NOTE | 2021-04-01 02:46 | EDM.PDOC ---
ED HPI GENERAL MEDICAL PROBLEM - General Chief Complaint: Respiratory Problem Stated Complaint: [facility] Time Seen by Provider: 04/01/21 01:55 Source of Information: Reports: Patient History Limitations: Reports: Physical Impairment (some conversational dyspnea) - History of Present Illness INITIAL COMMENTS - FREE TEXT/NARRATIVE: Mr. Jackson is a very pleasant 65-year-old gentleman with a past medical history of both COPD and CHF, who now presents to the ED by EMS after he was woken around midnight with dyspnea. He states that he may be wheezing. He states that he feels better if he is upright than supine. No recent fever or cough. The patient states that he takes supplemental oxygen at 1.5 L/min per nasal cannula continuously. He took a single DuoNeb at home, which did not help, although he had another here in the ED prior to my evaluation, and he states that that one did help. The patient reports that he gets similar symptoms about every 4 to 6 weeks, but he does not recall what the diagnosis is. At triage, the patient's initial BP was found to be elevated at 186/113 with tachycardia of 125 bpm and tachypnea of 30 rpm. He was afebrile, saturating 97% on 1.5 L of oxygen per nasal cannula. He appears to be somewhat dyspneic, with some limitation on conversation, but he is not in acute distress. Prior to midnight, the patient denies having a recent fever, chills, sore throat, ear pain, nasal or sinus congestion, cough, dyspnea, chest pain, palpitations, nausea, vomiting, constipation, diarrhea, abdominal pain, urinary symptoms, recent weight gain or weight loss, recent bloody bowel movements or black bowel movements, recent joint aches, headaches, or rashes. The patient's PCP is SUBHA Mina. His B Operator is Dr. Clari Rogers. His Rehabilitation Therapy Technician is Dr. Arsenio Littlejohn. He has not received a COVID vaccination, nor an influenza vaccination this season. - Related Data Allergies Allergy/AdvReac Type Severity Reaction Status Date / Time No Known Allergies Allergy Verified 04/01/21 01:49 Home Meds: Home Meds Albuterol [Ventolin HFA] 2 puff INH Q4H PRN 10/22/18 [History] Lisinopril 20 mg PO DAILY 07/13/19 [History] carvediloL [Carvedilol] 25 mg PO BIDMEALS 10/22/18 [History] Aspirin 81 mg PO DAILY 11/05/18 [History] Budesonide/Formoterol Fumarate [Symbicort 80-4.5 MCG] 1 puff IH BID #4 inhaler 11/06/18 [Rx] Furosemide [Lasix] 40 mg PO DAILY #20 tablet 01/26/19 [Rx] Ipratropium [Atrovent] 0.5 mg NEB Q8HR 3 Days #9 neb 01/26/19 [Rx] Roflumilast [Daliresp] 500 mcg PO DAILY 10/24/20 [History] Spironolactone [Aldactone] 25 mg PO DAILY 10/24/20 [History] Azithromycin 250 mg PO DAILY #10 tablet 10/26/20 [Rx] predniSONE 20 mg PO WITHBREAKFAST #10 tablet 10/26/20 [Rx] predniSONE 20 mg PO ASDIRECTED #15 tab 02/23/21 [Rx] predniSONE [Prednisone] 1 tab PO QAM #5 tablet 04/01/21 [Rx] Past Medical History Cardiovascular History: Reports: Heart Failure, Hypertension Respiratory History: Reports: COPD (PFT-proven) Endocrine/Metabolic History: Reports: Diabetes, Type II - Infectious Disease History Infectious Disease History: Reports: Chicken Pox, Measles - Past Surgical History Male Surgical History: Reports: Circumcision Social & Family History - Tobacco Use Tobacco Use Status *Q: Former Tobacco User Used Tobacco, but Quit: Yes - Caffeine Use Caffeine Use: Reports: None Other Caffeine Use: 6-8 cans daily - Living Situation & Occupation Living situation: Reports: Single, with Significant Other (Girlfriend) Occupation: Unemployed ED ROS GENERAL - Review of Systems Review Of Systems: Comprehensive ROS is negative, except as noted in HPI. ED EXAM, GENERAL - Physical Exam Exam: See Below Exam Limited By: No Limitations General Appearance: Alert, Mild Distress (Some conversational dyspnea. Appears fatigues.), Thin, Other (Disheveled) Eye Exam: Bilateral Eye: EOMI, Normal Inspection Ears: Normal External Exam, Hearing Grossly Normal Nose: Normal Inspection Throat/Mouth: Normal Inspection, Normal Lips, Normal Voice, No Airway Compromise Head: Atraumatic, Normocephalic Neck: Normal Inspection, Full Range of Motion Respiratory/Chest: No Accessory Muscle Use, Decreased Breath Sounds, Prolonged Expiration, Other (Poor overall air movement). No: Crackles, Rhonchi, Wheezing, Accessory Muscle Use, Splinting Cardiovascular: Normal Peripheral Pulses, Regular Rate, Rhythm, No Edema, No Gallop, No JVD, No Murmur, No Rub Peripheral Pulses: 3+: Radial (L), Radial (R) GI/Abdominal: Normal Bowel Sounds, Soft, Non-Tender, No Organomegaly, No Distention, No Abnormal Bruit, No Mass Back Exam: Normal Inspection, Full Range of Motion, NT Extremities: Normal Inspection, Normal Range of Motion, No Pedal Edema, Normal Capillary Refill Neurological: Alert, Oriented, Normal Cognition, No Motor/Sensory Deficits Psychiatric: Normal Affect Skin Exam: Warm, Dry, Intact, Normal Color, No Rash #1 Interpretation EKG Date: 04/01/21 Time: 02:17 Rhythm: Other (Sinus tachycardia) Rate (Beats/Min): 120 P-Wave: Enlarged (LAE) QRS: LBBB QT: Prolonged (QTc 537 ms) Comparison: No Change (02/23/2021) Course - Vital Signs Last Recorded V/S: Last Vital Signs Temp 36.6 C 04/01/21 01:46 Pulse 125 H 04/01/21 01:46 Resp 30 H 04/01/21 01:46 BP 186/113 H 04/01/21 01:46 Pulse Ox 98 04/01/21 04:08 - Orders/Labs/Meds Labs: Laboratory Tests 04/01/21 04/01/21 04/01/21 Range/Units 02:08 02:25 02:25 WBC 10.53 H (4.23-9.07) K/mm3 RBC 5.36 (4.63-6.08) M/mm3 Hgb 15.2 (13.7-17.5) gm/dl Hct 48.0 (40.1-51.0) % MCV 89.6 (79.0-92.2) fl MCH 28.4 (25.7-32.2) pg MCHC 31.7 L (32.2-35.5) g/dl RDW Std Deviation 45.8 H (35.1-43.9) fL Plt Count 302 (163-337) K/mm3 MPV 9.6 (9.4-12.3) fl Neutrophils % (Manual) 72 H (40-60) % Band Neutrophils % 0 (0-10) % Lymphocytes % (Manual) 18 L (20-40) % Atypical Lymphs % 0 % Monocytes % (Manual) 8 (2-10) % Eosinophils % (Manual) 2 (0.8-7.0) % Basophils % (Manual) 0 L (0.2-1.2) Platelet Estimate Adequate RBC Morph Comment Normal D-Dimer, Quantitative (0.19-0.50) mg/L Puncture Site Lt radial ABG pH 7.22 L (7.35-7.45) ABG pCO2 64.0 H (35.0-45.0) mmHg ABG pO2 58.0 L (80.0-100.0) mmHg ABG HCO3 25.0 (22.0-26.0) meq/L ABG O2 Saturation 87.4 L (96.0-97.0) % ABG Base Excess -4.0 L (-2-2.0) A-a Gradient 33 mmHg O2 Delivery Device Nasal cannula Oxygen Flow Rate 1.5 FiO2 24.00 (21.00-100.00) % Sodium (136-145) mEq/L Potassium (3.5-5.1) mEq/L Chloride (98-107) mEq/L Carbon Dioxide (21-32) mEq/L Anion Gap (5-15) BUN (7-18) mg/dL Creatinine (0.7-1.3) mg/dL Est Cr Clr Drug Dosing Estimated GFR (MDRD) (>60) mL/min BUN/Creatinine Ratio (14-18) Glucose (70-99) mg/dL Lactic Acid (0.4-2.0) mmol/L Calcium (8.5-10.1) mg/dL Total Bilirubin (0.2-1.0) mg/dL AST (15-37) U/L ALT (16-63) U/L Alkaline Phosphatase (46-116) U/L Troponin I (0.00-0.056) ng/mL C-Reactive Protein (<1.0) mg/dL NT-Pro-B Natriuret Pep (0-125) pg/mL Total Protein (6.4-8.2) g/dl Albumin (3.4-5.0) g/dl Globulin gm/dL Albumin/Globulin Ratio (1-2) Influenza Type A RNA Negative (NEGATIVE) Influenza Type B RNA Negative (NEGATIVE) SARS-CoV-2 RNA (JAMES) Negative (NEGATIVE) 04/01/21 04/01/21 04/01/21 Range/Units 02:25 02:25 02:25 WBC (4.23-9.07) K/mm3 RBC (4.63-6.08) M/mm3 Hgb (13.7-17.5) gm/dl Hct (40.1-51.0) % MCV (79.0-92.2) fl MCH (25.7-32.2) pg MCHC (32.2-35.5) g/dl RDW Std Deviation (35.1-43.9) fL Plt Count (163-337) K/mm3 MPV (9.4-12.3) fl Neutrophils % (Manual) (40-60) % Band Neutrophils % (0-10) % Lymphocytes % (Manual) (20-40) % Atypical Lymphs % % Monocytes % (Manual) (2-10) % Eosinophils % (Manual) (0.8-7.0) % Basophils % (Manual) (0.2-1.2) Platelet Estimate RBC Morph Comment D-Dimer, Quantitative 1.56 H (0.19-0.50) mg/L Puncture Site ABG pH (7.35-7.45) ABG pCO2 (35.0-45.0) mmHg ABG pO2 (80.0-100.0) mmHg ABG HCO3 (22.0-26.0) meq/L ABG O2 Saturation (96.0-97.0) % ABG Base Excess (-2-2.0) A-a Gradient mmHg O2 Delivery Device Oxygen Flow Rate FiO2 (21.00-100.00) % Sodium 143 (136-145) mEq/L Potassium 4.5 (3.5-5.1) mEq/L Chloride 105 (98-107) mEq/L Carbon Dioxide 32 (21-32) mEq/L Anion Gap 10.5 (5-15) BUN 11 (7-18) mg/dL Creatinine 1.2 (0.7-1.3) mg/dL Est Cr Clr Drug Dosing TNP Estimated GFR (MDRD) > 60 (>60) mL/min BUN/Creatinine Ratio 9.2 L (14-18) Glucose 232 H (70-99) mg/dL Lactic Acid (0.4-2.0) mmol/L Calcium 8.6 (8.5-10.1) mg/dL Total Bilirubin 0.6 (0.2-1.0) mg/dL AST 15 (15-37) U/L ALT 16 (16-63) U/L Alkaline Phosphatase 67 (46-116) U/L Troponin I < 0.017 (0.00-0.056) ng/mL C-Reactive Protein <0.2 (<1.0) mg/dL NT-Pro-B Natriuret Pep 4986 H (0-125) pg/mL Total Protein 6.8 (6.4-8.2) g/dl Albumin 3.7 (3.4-5.0) g/dl Globulin 3.1 gm/dL Albumin/Globulin Ratio 1.2 (1-2) Influenza Type A RNA (NEGATIVE) Influenza Type B RNA (NEGATIVE) SARS-CoV-2 RNA (JAMES) (NEGATIVE) 04/01/21 04/01/21 Range/Units 03:06 06:10 WBC (4.23-9.07) K/mm3 RBC (4.63-6.08) M/mm3 Hgb (13.7-17.5) gm/dl Hct (40.1-51.0) % MCV (79.0-92.2) fl MCH (25.7-32.2) pg MCHC (32.2-35.5) g/dl RDW Std Deviation (35.1-43.9) fL Plt Count (163-337) K/mm3 MPV (9.4-12.3) fl Neutrophils % (Manual) (40-60) % Band Neutrophils % (0-10) % Lymphocytes % (Manual) (20-40) % Atypical Lymphs % % Monocytes % (Manual) (2-10) % Eosinophils % (Manual) (0.8-7.0) % Basophils % (Manual) (0.2-1.2) Platelet Estimate RBC Morph Comment D-Dimer, Quantitative (0.19-0.50) mg/L Puncture Site ABG pH (7.35-7.45) ABG pCO2 (35.0-45.0) mmHg ABG pO2 (80.0-100.0) mmHg ABG HCO3 (22.0-26.0) meq/L ABG O2 Saturation (96.0-97.0) % ABG Base Excess (-2-2.0) A-a Gradient mmHg O2 Delivery Device Oxygen Flow Rate FiO2 (21.00-100.00) % Sodium (136-145) mEq/L Potassium (3.5-5.1) mEq/L Chloride (98-107) mEq/L Carbon Dioxide (21-32) mEq/L Anion Gap (5-15) BUN (7-18) mg/dL Creatinine (0.7-1.3) mg/dL Est Cr Clr Drug Dosing Estimated GFR (MDRD) (>60) mL/min BUN/Creatinine Ratio (14-18) Glucose (70-99) mg/dL Lactic Acid 2.1 H* 1.7 (0.4-2.0) mmol/L Calcium (8.5-10.1) mg/dL Total Bilirubin (0.2-1.0) mg/dL AST (15-37) U/L ALT (16-63) U/L Alkaline Phosphatase (46-116) U/L Troponin I (0.00-0.056) ng/mL C-Reactive Protein (<1.0) mg/dL NT-Pro-B Natriuret Pep (0-125) pg/mL Total Protein (6.4-8.2) g/dl Albumin (3.4-5.0) g/dl Globulin gm/dL Albumin/Globulin Ratio (1-2) Influenza Type A RNA (NEGATIVE) Influenza Type B RNA (NEGATIVE) SARS-CoV-2 RNA (JAMES) (NEGATIVE) Meds: Medications Discontinued Medications Generic Name Dose Route Start Last Admin Trade Name Freq PRN Reason Stop Dose Admin Albuterol 2.5 mg 04/01/21 02:40 04/01/21 03:03 Albuterol 0.083% 2.5 Mg/3 Ml Neb Soln NEB 04/01/21 02:41 2.5 mg ONETIME ONE Administration Albuterol 2.5 mg 04/01/21 04:07 04/01/21 04:29 Albuterol 0.083% 2.5 Mg/3 Ml Neb Soln NEB 04/01/21 04:08 2.5 mg ONETIME ONE Administration Albuterol/Ipratropium 3 ml 04/01/21 01:54 04/01/21 02:05 Albuterol/Ipratropium 3.0-0.5 Mg/3 Ml Neb Soln NEB 04/01/21 01:55 3 ml ONETIME ONE Administration Prednisone 60 mg 04/01/21 02:40 04/01/21 03:24 Prednisone 20 Mg Tab PO 04/01/21 02:41 60 mg ONETIME STA Administration - Re-Assessments/Exams Free Text/Narrative Re-Assessment/Exam: 04/01/21 02:42 The patient appears to be suffering from a COPD exacerbation, and less likely from CHF, as I hear no crackles on auscultation. Additionally, his oxygen s aturation is 97% on his usual 1.5 L of oxygen per nasal cannula. A work-up including numerous blood tests, an ABG, a swab for the SARS-CoV-2 virus and influenza A + B viruses, a portable chest x-ray, and an ECG were ordered at triage. I have added a lactic acid and 2 sets of blood cultures. The patient was given a DuoNeb at triage, and states that he feels somewhat better now. I have ordered an additional albuterol neb, plus 60 mg of oral prednisone. 04/01/21 03:28 Portable chest radiograph reviewed. The cardiac silhouette is within normal limits. Increased pulmonary markings consistent with pulmonary fibrosis. Mild pulmonary vascular congestion cannot be ruled out. No pleural effusions seen on this AP view. No focal infiltrate. No pneumothorax. There is hyperinflation with bilateral diaphragmatic flattening, consistent with COPD. Formal read per the Radiologist pending. The patient's CBC is remarkable for mild leukocytosis of 10.53, but with 0% bandemia, and the remainder of his CBC being unremarkable. His CMP is remarkable for hyperglycemia of 232, and is otherwise unremarkable. His CRP is undetectably low. His troponin is undetectably low. His pro-BNP is elevated at 4986. His D-dimer is elevated at 1.56. His ABG demonstrates a primary respiratory acidosis with secondary metabolic alkalosis. His swab for the SARS-CoV-2 virus and influenza A + B viruses is negative. 04/01/21 04:02 The patient's initial lactic acid level is elevated at 2.1. 04/01/21 04:08 Test results discussed with the patient. On auscultation, he is moving air much better, no wheezing is heard, and he looks better, as well. I am concerned about his elevated D-dimer, and recommended a CT angiogram of the chest to rule out a PE. The patient agreed. Because he is likely mildly fluid overloaded, I am not going to run IV fluid. The patient will be given a second albuterol neb. 04/01/21 07:18 CT angiogram of the chest is read by Dr. Neal as: 1. No findings of pulmonary embolism. 2. Severe emphysematous changes seen within both lungs. Scattered nodularity is seen believed to be stable. No definite acute nodule is seen within either lung. 3. Small bilateral pleural effusions which have slightly increased in size from previous study. 4. 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 Measurements as noted above. 5. Findings within the upper abdomen are stable from prior exam as described above. 04/01/21 07:31 The patient's repeat lactic acid level is down to 1.7. 04/01/21 07:45 Test results discussed with the patient. He states that he is feeling much better, and ready to go home. He was unaware of the mediastinal mass. We will have him follow-up with his PCP, SUBHA Mina, for referral to an Oncologist. I will submit a prescription for prednisone 20 mg every morning, that he can start tomorrow morning. He is already on furosemide 40 mg po QAM -we will have him take a second dose mid-day every day for the next 3 days, starting today. Departure - Departure Time of Disposition: 07:48 Disposition: Home, Self-Care 01 Condition: Good Clinical Impression: COPD exacerbation, Mediastinal mass Congestive heart failure Qualifiers: Heart failure type: unspecified Heart failure chronicity: acute on chronic Qualified Code(s): I50.9 - Heart failure, unspecified - Discharge Information *PRESCRIPTION DRUG MONITORING PROGRAM REVIEWED*: Not Applicable *COPY OF PRESCRIPTION DRUG MONITORING REPORT IN PATIENT LIBBY: Not Applicable Prescriptions: predniSONE [Prednisone] 1 tab PO QAM #5 tablet Instructions: Chronic Obstructive Pulmonary Disease, [id number] Referrals: Ana Funes PA-C [Primary Care Provider] - Arsenio Littlejohn MD [Ordering Only Provider] - Clari Rogers MD [Ordering Only Provider] - Forms: ED Department Discharge Additional Instructions: You were seen in the emergency room for sudden onset shortness of breath. Work-up in the ER included numerous blood tests, an arterial blood gas, 2 sets of blood cultures, a swab for the SARS-CoV-2 virus and influenza A + B viruses, a chest x-ray, a CT angiogram of your chest, and an ECG. Your symptoms significantly improved following neb treatments and oral prednisone. The CT scan found a mediastinal mass that appears to be getting larger, concerning for a malignancy (cancer). Your blood work, chest x-ray, and CT of your chest found you to be moderately fluid overloaded, due to congestive heart failure. A prescription for prednisone has been sent to [facility]. Take 1 tablet (20 mg) every morning, starting tomorrow morning, 04/02/2021, as prescribed. Continue to take your previously prescribed Lasix (furosemide) every morning, but take an additional tablet in the early afternoon, for the next 3 days, starting today. Please follow-up with your PCP, SUBHA Mina, for referral to an oncologist to evaluate the mediastinal mass. If any other problems, please do not hesitate to return to the ER. Sepsis Event Note (ED) - Evaluation Sepsis Screening Result: No Definite Risk
[2021-04-01 03:09] LABS: CORONAVIRUS COVID-19 NAA NEGATIVE (NEGATIVE)
--- NOTE | 2021-04-01 06:31 | CR ---
Chest: Frontal view of the chest was obtained. Comparison: Prior chest x-ray of 02/23/21. Lung markings are diffusely increased. Tamir B lines are noted. Heart is enlarged. Upper mediastinum is normal. Bony structures show nothing acute. Impression: 1. Diffuse increased lung markings with Tamir B lines. Findings are fairly stable from prior chest x-ray. Please correlate if patient has symptoms to suggest moderately prominent CHF with interstitial edema. Diagnostic code #3
--- NOTE | 2021-04-01 07:08 | CT ---
CT chest Technique: Multiple axial sections were obtained from above the lung apices inferiorly through the lung bases. Intravenous contrast was utilized. Study has been performed as a pulmonary angiogram protocol. Comparison: Prior CT chest study of 10/24/20. Findings: Pulmonary arteries are well opacified. No filling defects are seen to indicate pulmonary embolism. Soft tissue mass is noted within the anterior mediastinum which measures approximately 4.7 cm x 3.0 cm. This finding measures approximately 3.7 cm x 2.5 cm on prior exam and has therefore increased in size compatible with neoplastic change. Several small lymph nodes are otherwise seen within the mediastinum which are felt to be stable. Thoracic aorta shows atherosclerotic change but no aneurysm. Minimal lymph nodes are seen within both abraham which are felt to be stable. No pericardial thickening is seen. Visualized upper abdomen shows 3 low density lesions within the liver which are stable from prior exam most likely due to small cysts. There is dilatation of the visualized collecting system and renal pelvis within the right kidney which is similar to prior exam. Nonobstructing calculi are seen within both kidneys. Small cyst is noted within the left kidney measuring approximately 1.3 cm. Abdominal aorta shows diffuse atherosclerotic calcification. Lung window settings were obtained which show severe emphysematous change within both lungs. Minimal pleural effusions are seen within both lungs which have minimally increased in size from prior study. Three small nodules are seen within the left base. These are poorly seen on current study due to the pleural effusion and adjacent atelectasis. Two small nodules are seen within the right lung base which are felt to be stable from prior chest CT. No new nodules are seen. Bone window settings were reviewed. Slight scattered disc space narrowing is seen within the spine. Bony structures show nothing acute. Impression: 1. No findings of pulmonary embolism. 2. Severe emphysematous change is seen within both lungs. Scattered nodularity is seen believed to be stable. No definite acute nodule is seen within either lung. 3. Small bilateral pleural effusions which have slightly increased in size from previous study. 4. 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 Measurements as noted above. 5. Findings within the upper abdomen are stable from prior exam as described above. Diagnostic code #9
== END 2021-04-01 09:38 | disposition home or self-care (01) ==
LOC: JD.ED 01:40
DX: J44.1 Chronic obstructive pulmonary disease with (acute) exacerbation (principal); I11.0 Hypertensive heart disease with heart failure; I50.9 Heart failure, unspecified; R91.8 Other nonspecific abnormal finding of lung field; E11.9 Type 2 diabetes mellitus without complications; Z79.82 Long term (current) use of aspirin; Z79.899 Other long term (current) drug therapy; Z87.891 Personal history of nicotine dependence; Z20.822 Contact with and (suspected) exposure to COVID-19
CPT/HCPCS: 0240U; 36415; 36600; 71045; 71275; 80053; 82803; 83605; 83880; 84484; 85007; 85027; 85379; 86140; 87040; 93005; 94640; 99285; J7512; 93010; J7620-GY

== ENCOUNTER 2021-05-21 01:04 | Inpatient (IN) | payer MEDICARE, MEDICAID ==
[2021-05-21] MEDS ORDERED: Albuterol 0.083% 2.5 MG/3 ML Neb Soln NEB ONE (01:34)
[2021-05-21] MEDS ORDERED: predniSONE 20 MG Tab PO STA (01:35)
[2021-05-21 02:33] LABS: CORONAVIRUS COVID-19 NAA NEGATIVE (NEGATIVE)
[2021-05-21] MEDS ORDERED: Insulin Regular, Human 100 Units/ML 3 ML Vial SUBCUT STA (02:45)
[2021-05-21] MEDS ORDERED: Albuterol/Ipratropium 3.0-0.5 MG/3 ML Neb Soln NEB ONE (07:42)
[2021-05-21] MEDS ORDERED: Ondansetron 4 MG/2 ML SDV IV PRN (11:09)
[2021-05-21] MEDS ORDERED: Ondansetron 4 MG Tab.DIS PO PRN (11:09)
[2021-05-21] MEDS ORDERED: Acetaminophen 325 MG Tab PO PRN (11:09)
[2021-05-21] MEDS ORDERED: Benzonatate 100 MG Cap PO PRN (11:13)
[2021-05-21] MEDS ORDERED: 50% Dextrose in Water 50 ML Syringe IVPUSH PRN (11:58)
[2021-05-21] MEDS ORDERED: Glucagon,Human Recombinant 1 MG Vial IM PRN (11:58)
[2021-05-21] MEDS: Heparin Sodium 5,000 Units/ML Vial SUBCUT SCH ×2 (12:51→20:14)
[2021-05-21] MEDS ORDERED: Albuterol/Ipratropium 3.0-0.5 MG/3 ML Neb Soln NEB SCH (13:00)
[2021-05-21] MEDS ORDERED: Doxycycline 100 MG Cap PO ONE (13:45)
[2021-05-21] MEDS: Albuterol/Ipratropium 3.0-0.5 MG/3 ML Neb Soln NEB PRN (13:57)
[2021-05-21] MEDS: Albuterol/Ipratropium 3.0-0.5 MG/3 ML Neb Soln NEB SCH ×2 (16:34→21:37)
[2021-05-21] MEDS: Carvedilol 12.5 MG Tab PO SCH (17:30)
[2021-05-21] MEDS: Insulin Lispro 100 Unit/ML 3 ML KwikPen SUBCUT SCH (18:14)
[2021-05-21] MEDS: Doxycycline 100 MG Cap PO SCH (20:14)
[2021-05-22] MEDS: Heparin Sodium 5,000 Units/ML Vial SUBCUT SCH ×3 (04:07→20:48)
[2021-05-22] MEDS: Albuterol/Ipratropium 3.0-0.5 MG/3 ML Neb Soln NEB SCH ×4 (05:27→20:36)
[2021-05-22] MEDS: Carvedilol 12.5 MG Tab PO SCH ×2 (06:29→16:07)
[2021-05-22] MEDS: predniSONE 20 MG Tab PO SCH (06:33)
[2021-05-22] MEDS: Doxycycline 100 MG Cap PO SCH ×2 (08:09→20:49)
[2021-05-22] MEDS: Lisinopril 20 MG Tab PO SCH (08:09)
[2021-05-22] MEDS: Aspirin 81 MG Tab.Chew PO SCH (08:10)
[2021-05-22] MEDS: Spironolactone 25 MG Tab PO SCH (08:10)
[2021-05-22] MEDS: Insulin Lispro 100 Unit/ML 3 ML KwikPen SUBCUT SCH ×2 (08:10→13:06)
[2021-05-22] MEDS: Furosemide 40 MG Tab PO SCH (08:10)
[2021-05-22] MEDS: Roflumilast [Daliresp] 500 MCG Tablet ** PATIENT'S OWN MED PO SCH (08:13)
[2021-05-22] MEDS ORDERED: Potassium Chloride 20 MEQ Tab.ER PO ONE (08:38)
[2021-05-22 10:34] LABS: HEMOGLOBIN A1C 5.6 %
[2021-05-22] MEDS: Albuterol/Ipratropium 3.0-0.5 MG/3 ML Neb Soln NEB PRN (12:17)
[2021-05-23] MEDS: Heparin Sodium 5,000 Units/ML Vial SUBCUT SCH ×2 (03:56→13:07)
[2021-05-23] MEDS: Albuterol/Ipratropium 3.0-0.5 MG/3 ML Neb Soln NEB SCH ×2 (06:08→10:07)
[2021-05-23] MEDS: Carvedilol 12.5 MG Tab PO SCH (06:46)
[2021-05-23] MEDS: predniSONE 20 MG Tab PO SCH (06:46)
[2021-05-23] MEDS: Spironolactone 25 MG Tab PO SCH (08:51)
[2021-05-23] MEDS: Doxycycline 100 MG Cap PO SCH (08:51)
[2021-05-23] MEDS: Aspirin 81 MG Tab.Chew PO SCH (08:51)
[2021-05-23] MEDS: Lisinopril 20 MG Tab PO SCH (08:51)
[2021-05-23] MEDS: Furosemide 40 MG Tab PO SCH (08:51)
[2021-05-23] MEDS: Roflumilast [Daliresp] 500 MCG Tablet ** PATIENT'S OWN MED PO SCH (08:52)
== END 2021-05-23 12:41 | disposition home or self-care (01) | DRG 189 ==
LOC: JD.ED 01:04 → JD.MS 09:41
PROVIDERS: ADMIT Hospitalist; ATTEND Hospitalist
PROC: 5A09457 Assistance with Respiratory Ventilation, 24-96 Consecutive Hours, Continuous Positive Airway Pressure (ICD-10-PCS; principal; 2021-05-21)
DX: J96.21 Acute and chronic respiratory failure with hypoxia (principal); I50.22 Chronic systolic (congestive) heart failure; C34.91 Malignant neoplasm of unspecified part of right bronchus or lung; J96.22 Acute and chronic respiratory failure with hypercapnia; J44.1 Chronic obstructive pulmonary disease with (acute) exacerbation; E11.65 Type 2 diabetes mellitus with hyperglycemia; Z66 Do not resuscitate; C34.90 Malignant neoplasm of unspecified part of unspecified bronchus or lung; E87.6 Hypokalemia; J43.9 Emphysema, unspecified; T38.0X5A Adverse effect of glucocorticoids and synthetic analogues, initial encounter; Y92.89 Other specified places as the place of occurrence of the external cause; Z87.891 Personal history of nicotine dependence; Z79.52 Long term (current) use of systemic steroids; Z79.4 Long term (current) use of insulin; I50.9 Heart failure, unspecified; I11.0 Hypertensive heart disease with heart failure; Z98.890 Other specified postprocedural states; E11.9 Type 2 diabetes mellitus without complications; Z79.82 Long term (current) use of aspirin; Z79.51 Long term (current) use of inhaled steroids; Z79.899 Other long term (current) drug therapy; Z20.822 Contact with and (suspected) exposure to COVID-19
CPT/HCPCS: 0240U; 36415; 36600; 71045; 71275; 80048; 80053; 82803; 82947; 83036; 83605; 83880; 84145; 84484; 85007; 85027; 85379; 86140; 87040; 93005; 93306; 94640; 94660; 94762; 99285; A9270-GY; J1644; J1815; J1815-GY; J7512; J7620-GY